=== PATIENT | female | born 1960 | race Caucasian/White ===

== ENCOUNTER 2024-11-07 09:57 | Emergency (ER) | payer MEDICARE, MEDICAID, SELFPAY ==
--- NOTE | ~2024-11-07 | CT_ITS ---
EXAMINATION: CT abdomen pelvis w con DATE: 11/07/2024 13:03 INDICATION: Lower abdominal pain and rectal bleeding TECHNIQUE: Computed tomography (CT) of the abdomen and pelvis was performed with 100 mL Omnipaque-350 intravenous contrast. Automated exposure control and iterative reconstruction technique were employed. The dose-length product was 242.18 mGy-cm. COMPARISON: None FINDINGS: Lung bases are clear. Heart size is normal. No pericardial or pleural effusion. Small sliding-type hiatal hernia. There are 5 hypodense/hypoenhancing hepatic masses measuring 4.6 cm, 3.9 cm, 3.2 cm, 1.7 cm and 6 mm in maximal diameters. Gallbladder, spleen, pancreas, bilateral adrenal glands and right kidney are normal. 2.2 cm left renal cyst. Bladder, anteverted uterus and bilateral adnexa are unremarkable. Moderate diverticulosis along the proximal sigmoid colon without adjacent from trace stranding to suggest diverticulitis. There is wall thickening in the more distal sigmoid colon. There is mild stranding in the presacral fat along with a few mildly enlarged perirectal lymph nodes, the largest measuring 1.8 x 1.3 cm. No other pathologically enlarged abdominal or pelvic lymphadenopathy. No free intraperitoneal gas or fluid. Severe lumbar spondylosis. IMPRESSION: 1. Wall thickening the distal sigmoid colon with a few prominent perirectal lymph nodes which could be due to colitis and infectious or inflammatory in etiology with associated reactive lymphadenopathy or colon cancer with local metastatic disease. Consider colonoscopy for further evaluation when clinically appropriate 2. Several hypodense hepatic masses, the largest measuring up to 4.6 cm which could represent metastatic disease, hemangiomas, focal hepatic steatosis or other benign or malignant neoplasm. Recommend further evaluation with multiphase pre and postcontrast MRI or CT. Reviewed, dictated and finalized at location A. IMPRESSION: 1. Wall thickening the distal sigmoid colon with a few prominent perirectal lym ph nodes which could be due to colitis and infectious or inflammatory in etiolo gy with associated reactive lymphadenopathy or colon cancer with local metastat ic disease. Consider colonoscopy for further evaluation when clinically appropr iate 2. Several hypodense hepatic masses, the largest measuring up to 4.6 cm which c ould represent metastatic disease, hemangiomas, focal hepatic steatosis or othe r benign or malignant neoplasm. Recommend further evaluation with multiphase pr e and postcontrast MRI or CT.
--- OUTSIDE RECORDS SUMMARY | 2024-11-07 09:59 | XMS_ITS | Clinical Summary ---
Author Organization [facility] Facility Address [address] [facility] [address] [place] [address] Care Team Providers Care Bank President Name Role Phone Caleb Forman Primary Care Provider [phone] Encounters Date Type Department Care Team Description 10/08/2024 Documentation Only [employer] [facility] [address] Provider, MD [place] from Last 3 Months Social History Tobacco Use Types Packs/Day Years Used Date Smoking Tobacco: Never Assessed Comments Unknown Sex and Gender Information Value Date Recorded Sex Assigned at Not on file Legal Sex Female 1:04 PM EDT Gender Identity Not on file Sexual Orientation Not on file Plan of Treatment Upcoming Encounters Date Type Department Care Team (Late st Contact Info) Description 12/12/2024 11:30 AM CDT Office Visit [employer] [facility] [address] [facility] [address] [place] [phone] Christ Molina MD [address] [place] [address] [address] [place] [address] Health Maintenance Due Date Last Done Comments Breast Cancer Screening 1959 Colorectal Cancer Screening: Annual FOBT 2008 Colorectal Cancer Screening: Colonoscopy 2008 Colorectal Cancer Screening: Sigmoidoscopy 2008 Pneumococcal Vaccine: 50+ Ye ars (1 of 1 - PCV) 2009 Influenza Vaccine (#1) 2024 Hepatitis B Vaccine Aged Out No longe r eligible based on patient's age to complete this topic Insurance Medicaid [place] Medicare Medicaid [place] Care Teams Bank President Relationship Specialty Start Date End Date Caleb Forman PA [address] [place] [address] PCP - General Internal Medicine 10/08/24
--- OUTSIDE RECORDS SUMMARY | 2024-11-07 09:59 | XMS_ITS | Clinical Summary ---
Author Organization [facility] Address [address] [place] [address] Phone Care Team Providers Care Customer Counter Representative Name Role Phone Caleb Forman Primary Care Provider [phone] Mack Orellana MD Unavailable Allergies No known active allergies Medications metoclopramide (REGLAN) 10 MG Tablet Take 1 Tab by mouth 4 times daily as needed for Nausea - 1st line or Vomiting. 10 Tab 0 Active Ventolin HFA 108 (90 Base) MCG/ACT Aerosol Solution INHALE 2 PUFFS BY MOUTH 3 TO 4 TIMES DAILY NEEDED 4 Active atenolol (TENORMIN) 50 MG Tablet Take 50 mg by mouth every morning. 3 Active Qvar RediHaler 40 MCG/ACT AEROSOL, BREATH ACTIVATED INHALE 1 PUFF TWICE DAILY 4 Active bisacodyl 5 MG Tablet Delayed Response Take 10 mg by mouth daily as needed. 3 Active cetirizine (ZyrTEC) 10 MG Tablet TAKE 1 TABLET BY MOUTH ONCE DAILY NEEDED 4 Active famotidine (PEPCID) 20 MG Tablet Take 20 mg by mouth 2 times daily. 4 Active fluticasone (FLONASE) 50 MCG/ACT Suspension USE 1 SPRAY(S) IN EACH NOSTRIL ONCE DAILY 4 Active gabapentin (NEURONTIN) 300 MG Capsule Take 300 mg by mouth 3 times daily. 4 Active ipratropium-alb uterol (DUO-NEB) 0.5-2.5 (3) MG/3ML Solution USE 1 VIAL VIA NEBULIZER FOUR TIMES DAILY NEEDED 4 Active lisinopril (PRINIVIL, ZESTRIL) 20 MG Tablet Take 40 mg by mouth every morning. 3 Active meclizine (ANTIVERT) 25 MG Tablet 3 times daily. 4 Active naproxen (NAPROSYN) 500 MG Tablet TAKE 1/2 (ONE-HALF) TABLET BY MOUTH TWICE DAILY WITH FOOD 3 Active simvastatin (ZOCOR) 20 MG Tablet Take 20 mg by mouth daily. 4 Active traMADol (ULTRAM) 50 MG Tablet Take 50 mg by mouth every 8 hours as needed for Mild or more severe pain. Active nitroGLYCERIN (NITROSTAT) 0.4 MG SL Tablet 0.4 mg by Sublingual route every 5 minutes as needed. Active Active Problems No known active problems Family History Medical History Relation Name Comments Hypertension Daughter Cancer Father Stomach Diabetes Father Heart Attack Father Heart Disease Father Hypertension Father No Known Problems Half-Brother 1 No Known Problems Half-Brother 2 No Known Problems Half-Brother 3 No Known Problems Half-Sister 1 No Known Problems Half-Sister 2 No Known Problems Half-Sister 3 No Known Problems Half-Sister 4 No Known Problems Half-Sister 5 No Known Problems Half-Sister 6 No Known Problems Half-Sister 7 Heart Attack Maternal Grandfather Heart Attack Maternal Grandmother No Known Problems Mother No Known Problems Paternal Grandfather No Known Problems Paternal Grandmother Hypertension Son 1 Other-comment Son 2 Stillborn Relation Name Status Comments Daughter Alive Father Half-Brother 1 Alive Half-Brother 2 Alive Half-Brother 3 Alive Half-Sister 1 Alive Half-Sister 2 Alive Half-Sister 3 Alive Half-Sister 4 Alive Half-Sister 5 Alive Half-Sister 6 Alive Half-Sister 7 Alive Maternal Grandfather Maternal Grandmother Mother Paternal Grandfather Paternal Grandmother Son 1 Alive Son 2 Social History Tobacco Use Types Packs/Day Years Used Date Smoking Tobacco: Every Day Cigarettes 0.9 54.7 Started: 1970 Smokeless Tobacco: Never Tobacco Cessation:Ready to Q uit: Not Asked; Counseling Given: Not Answered Comments:10 cigarettes daily now Alcohol Use Standard Drinks/Week Comments Not Currently 6 (1 standard drink = 0.6 oz pure alcohol) quit 2022, used to drink 6 pack a day Sexually Active Control Partners Comments Yes Male Comments No Sex and Gender Information Value Date Recorded Sex Assigned at Not on file Legal Sex Female 7:43 PM CDT Gender Identity Not on file Sexual Orientation Not on file Last Filed Vital Signs Vital Sign Reading Time Taken Comments Blood Pressure 136/84 06/04/2024 9:20 AM CDT Pulse 105 06/04/2024 9:20 AM CDT Temperature 36.1 C (97 F) 06/04/2024 9:20 AM CDT Respiratory Rate 16 06/30/2019 10:32 AM CDT Oxygen Saturation 98% 06/04/2024 9:20 AM CDT Inhaled Oxygen Concentration - - Weight 72.1 kg (159 lb) 06/27/2024 8:35 AM CDT Height 160 cm (5' 3) 06/27/2024 8:35 AM CDT Body Mass Index 28.17 06/27/2024 8:35 AM CDT Plan of Treatment Health Maintenance Due Date Last Done Comments DEXA Bone Density 1959 Hepatitis C Virus (HCV) Screening 1959 Mammogram 1959 TdaP Immunization 1959 Pneumococcal Immunization (5 0+ years) (1 of 2 - PCV) 1978 Pap Smear 1980 Cervical Cancer Screening (CCS) 1989 HPV/Cotest 1989 Cologuard 2004 Colonoscopy 2004 Colorectal Cancer Screening 2004 Immunochemical Fecal Occult Blood 2004 Zoster Immunization (1 of 2) 2009 Lung Cancer Screening 06/14/2016 06/15/2015 Influenza Immunization (#1) 2024 SARS-COV-2 Immunization (2 - 2024- season) 2024 08/21/2020 Respiratory Syncytial Virus (RSV) Immunization (Adult) (1 - 1-dose 75+ series) 2034 Hepatitis B Immunization Aged Out No longer eligible based on patient's age to complete this topic Human Papillomavirus (HPV) Immunization Aged Out No longer eligible b ased on patient's age to complete this topic Meningococcal Immunization (ACWY) Aged Out No longer eligible based on patient's age to complete this topic Rotavirus Immunization Aged Out No lo nger eligible based on patient's age to complete this topic Procedures Procedure Name Priority Date/Time Associated Diagnosis Comments CT CHEST W/O CONTRAST Routine 06/15/2015 2:59 PM CDT Mixed simple and mucopurulent chronic bronchitis from Last 3 Months or Most Recently Relevant to Health Maintenance Results * CT CHEST W/O CONTRAST (06/15/2015 2:59 PM CDT) Anatomical Region Laterality Modality Chest N/A Computed Tomogra phy 06/15/2015 9:38 PM CDT Impressions 06/15/2015 9:41 PM CDT IMPRESSION: 1. No evidence of a consolidation to suggest pneumonia. 2. No evidence of a mass underlying the marker positioned over the patient's inferior neck at the level of the thyroid gland. Automated exposure control was used as a dose optimization technique for this examination. Narrative 06/15/2015 9:41 PM CDT EXAMINATION: CT CHEST WITHOUT IV CONTRAST DATE: 06/15/2015 COMPARISON: None HISTORY: Bronchitis, COPD, note on my throat. Symptoms for 1 week. Mixed simple and mucopurulent chronic bronchitis. History of COPD. TECHNIQUE: CT of the chest was performed without IV contrast. FINDINGS: Heart size is within normal limits. Proximal aspects of the great vessels are within normal limits in size. Moderate atherosclerotic calcification of the aortic arch is noted. Thyroid gland is unremarkable. No gross hilar, mediastinal, axillary, supraclavicular, internal mammary, pericardiophrenic or retrocrural lymphadenopathy is present. Images of the upper abdomen appear unremarkable. The trachea, esophagus, main stem bronchi appear unremarkable. There are a few scattered calcified granulomata within the lungs. No consolidation is seen to suggest pneumonia. There is no evidence of bronchiectasis. Mild - moderate osteoarthritic changes of the spine are noted. Radiopaque marker over the neck is noted above the sternomanubrial junction at the level of the thyroid gland. There is no evidence of underlying mass within the soft tissues. THIS IS AN ELECTRONICALLY VERIFIED REPORT 06/15/2015 9:38 PM: Brissa Melchor M.D. Radiologist AT:at [facility] Procedure Note Jet Dowd MD - 06/15/2015 EXAMINATION: CT CHEST WITHOUT IV CONTRAST DATE: 06/15/2015 COMPARISON: None HISTORY: Bronchitis, COPD, note on my throat. Symptoms for 1 week. Mixed simple and mucopurulent chronic bronchitis. History of COPD. TECHNIQUE: CT of the chest was performed without IV contrast. FINDINGS: Heart size is within normal limits. Proximal aspects of the great vessels are within normal limits in size. Moderate atherosclerotic calcification of the aortic arch is noted. Thyroid gland is unremarkable. No gross hilar, mediastinal, axillary, supraclavicular, internal mammary, pericardiophrenic or retrocrural lymphadenopathy is present. Images of the upper abdomen appear unremarkable. The trachea, esophagus, main stem bronchi appear unremarkable. There are a few scattered calcified granulomata within the lungs. No consolidation is seen to suggest pneumonia. There is no evidence of bronchiectasis. Mild - moderate osteoarthritic changes of the spine are noted. Radiopaque marker over the neck is noted above the sternomanubrial junction at the level of the thyroid gland. There is no evidence of underlying mass within the soft tissues. THIS IS AN ELECTRONICALLY VERIFIED REPORT 06/15/2015 9:38 PM: Brissa Melchor M.D. Radiologist AT:[facility] IMPRESSION: 1. No evidence of a consolidation to suggest pneumonia. 2. No evidence of a mass underlying the marker positioned over the patient's inferior neck at the level of the thyroid gland. Automated exposure control was used as a dose optimization technique for this examination. Caleb Forman [facility] CT ORDERABLES Final Resul t from Last 3 Months or Most Recently Relevant to Health Maintenance Insurance MEDICARE [place]ICAID [place] Care Teams Customer Counter Representative Relationship Specialty Start Date End Date Caleb Forman, [facility] [address] [place] [id number] PCP - General Physician Associate Professor Of Library Science 06/14/15 Mack Orellana MD [address] [address] Consulting Physician Colon and Rectal Surgery 04/09/23
[2024-11-07 11:43] VITALS: BP 98/60; PULSE 83; RESP 14; TEMP 36.8; O2SAT 100
[2024-11-07 12:04] LABS: Hematocrit 38.6 % (37.0-47.0); Hemoglobin 12.1 g/dL (12.0-15.0); Immature Granulocyte Percent A 0.7 % (0-0.5); Lymphocytes Absolute Auto 2.77 K/mm3 (0.9-3.2); Mean Corpuscular HGB Conc 31.3 g/dl (32-36); Mean Corpuscular Hemoglobin 28.4 pg (26-34); Mean Corpuscular Volume 90.6 fl (80-100); Nucleated Red Blood Cells Absolute Auto 0.000 K/mm3 (0.0-0.012); Nucleated Red Blood Cells Perc 0.0 % (0.0-0.2); Platelet Count Result 488 k/mm3 (150-375); Red Blood Count 4.26 M/mm3 (4.2-5.4); White Blood Count 15.1 K/mm3 (4.5-10.0)
[2024-11-07 12:05] VITALS: BP 107/70; PULSE 82; RESP 14; O2SAT 99
[2024-11-07 12:16] LABS: INR 1.0; Prothrombin Time 13.3 Seconds (11.1-14.7)
[2024-11-07 12:17] LABS: Partial Thromboplastin Time 25.2 Seconds (22.3-36.8)
[2024-11-07 12:28] LABS: Alanine Aminotransferase 14 U/L (6-35); Albumin Level 3.6 g/dL (3.5-5.1); Alkaline Phosphatase 90 U/L (38-126); Anion Gap 7 mmol/L (4-12); Aspartate Amino Transferase 29 U/L (14-36); Bilirubin,Total 0.5 mg/dL (0.2-1.3); Blood Urea Nitrogen 18 mg/dL (7-17); Calcium 9.0 mg/dL (8.4-10.2); Carbon Dioxide 24 mmol/L (22-30); Chloride 100 mmol/L (98-107); Estimated CRCL calculation 37 ml/min; Estimated Glomerular Filt Rate 49; Glucose 107 mg/dL (65-110); Potassium 4.5 mmol/L (3.4-5.0); Sodium 131 mmol/L (137-145); Total Protein 6.7 g/dL (6.3-8.2)
[2024-11-07] MEDS: LACTATED RINGERS 1,000 ML 999 ML IV CONT (12:35)
--- OUTSIDE RECORDS SUMMARY | 2024-11-07 12:42 | XMS_ITS | Clinical Summary ---
Author Organization [facility] Address [address] [place] [address] Phone Care Team Providers Care Tank Builder Name Role Phone Caleb Forman Primary Care Provider [phone] Mack Orellana MD Unavailable Allergies No known [...] optimization technique for this examination. Caleb Forman [facility] CT ORDERABLES Final Resul t from Last 3 Months or Most Recently Relevant to Health Maintenance Insurance MEDICARE [place]ID [place] Care Teams Tank Builder Relationship Specialty Start Date End Date Caleb Forman, [facility] [address] [place] [address] PCP - General Physician Dining Room Busser 06/14/15 Mack Orellana MD [address] [address] Consulting Physician Colon and Rectal Surgery 04/09/23
--- OUTSIDE RECORDS SUMMARY | 2024-11-07 12:42 | XMS_ITS | Clinical Summary ---
Author Organization [facility] Facility Address [address] [facility] [address] [place] [address] Care Team Providers Care Salvage Inspector Name Role Phone Caleb Forman Primary Care Provider [phone] Encounters Date Type Department Care Team Description 10/08/2024 Documentation Only [place] [employer] [facility] [address] Provider, MD [place] from Last [...] Description 12/12/2024 11:30 AM CDT Office Visit [place] [employer] [facility] [address] [facility] [address] [place] [phone] Christ Molina MD [address] [place] [address] [address] [place] [address] Health Maintenance Due Date Last Done Comments [...] Medicaid [place] Medicare Medicaid [place] Care Teams Salvage Inspector Relationship Specialty Start Date End Date Caleb Forman PA [address] [place] [address] PCP - General Internal Medicine 10/08/24
--- NOTE | 2024-11-07 12:52 | ED.GENADULT ---
HPI - General Adult General Chief complaint: GI Bleed Stated complaint: rectal bleeding, dizziness, abdominal pain Time Seen by Provider: 11/07/24 12:20 History of Present Illness HPI narrative: 64-year-old female present to the emergency department for evaluation for complaint bright red blood per rectum for the last 7 months. Patient states she did have a recent hospitalization at [facility] but has no information regarding the workup or discharge summary. Patient states he did have follow-up with her primary care physician but is also unable to provide any information gained from the at doctor's appointment. Patient denies any abdominal pain but is complaining of persistent bright red blood per rectum. Patient is not on any blood thinners. Patient does have history of her hernia Related Data Allergies Allergy/AdvReac Type Severity Reaction Status Date / Time No Known Allergies Allergy Verified 11/07/24 09:58 Review of Systems Review of Systems: All systems reviewed & are unremarkable except as noted in HPI and below Exam Narrative: APPEARANCE: Well appearing, no pain, no distress, well-nourished. HEAD: normocephalic, atraumatic. EYES: PERRLA/EOMI, conjunctivae clear. NOSE: Normal no drainage EARS:TMS clear with good light reflex. THROAT: Pharynx clear, no exudate. NECK: Supple. No adenopathy, no masses. RESPIRATORY: Airway patent, respirations nonlabored. Clear to auscultation bilaterally, no rales, rhonchi, wheezing. CARDIOVASCULAR: Regular rate and rhythm without murmurs rubs or gallops. ABDOMINAL: Soft, nontender, nondistended, normal bowel sounds MUSCULOSKELETAL: Moves all extremities. Strength/ROM intact, No edema, No calf tenderness. NEURO: Alert. Cranial nerves II through XII intact. Good gait. Good coordination SKIN: Warm, dry. Normal Color Rectal exam: Hemoccult positive brown stool Course Vital Signs Vital signs: Vital Signs Temperature 98.3 F 11/07/24 11:43 Pulse Rate 83 11/07/24 11:43 Respiratory Rate 14 11/07/24 11:43 Blood Pressure 98/60 L 11/07/24 11:43 Pulse Oximetry 100 11/07/24 11:43 Oxygen Delivery Room Air 11/07/24 11:43 Temperature 98.3 F 11/07/24 11:43 Pulse Rate 82 11/07/24 13:56 Respiratory Rate 20 11/07/24 13:56 Blood Pressure 120/75 11/07/24 13:56 Pulse Oximetry 99 11/07/24 13:56 Oxygen Delivery Room Air 11/07/24 11:43 Medical Decision Making [facility] Narrative Medical decision making narrative: 64-year-old female presents emergency department for evaluation for bright red blood per rectum. Patient is afebrile but does have a leukocytosis of 15.1 hemoglobin of 12.1, patient's platelets are 488, INR is 1.0. No significant acute abnormalities on her CMP. Patient was Hemoccult positive on her rectal exam. Patient had brown stool that tests Hemoccult positive, no bright red blood per rectum and no melena stool. Patient was treated with 1 L of lactated Ringer's. CT scan showed evidence of colitis. Patient will be started on Augmentin and encouraged of close follow-up with GI. Patient was also encouraged to follow up with her primary care physician for additional imaging of CT findings regarding the liver. Patient was informed that the findings on her CT scan may be secondary to cancer. Patient was strongly encouraged to get lost to follow-up and have close follow-up with her primary care physician for additional testing. Patient family were comfortable with the plan for discharge and close follow-up. All questions concerns were addressed. Differential Diagnosis Differential Diagnosis: Colitis, colon cancer, liver cancer, metastatic cancer, diverticulitis, Vital Signs Vital Signs: Vital Signs Temperature 98.3 F 11/07/24 11:43 Pulse Rate 83 11/07/24 11:43 Respiratory Rate 14 11/07/24 11:43 Blood Pressure 98/60 L 11/07/24 11:43 Pulse Oximetry 100 11/07/24 11:43 Oxygen Delivery Room Air 11/07/24 11:43 Temperature 98.3 F 11/07/24 11:43 Pulse Rate 82 11/07/24 13:56 Respiratory Rate 20 11/07/24 13:56 Blood Pressure 120/75 11/07/24 13:56 Pulse Oximetry 99 11/07/24 13:56 Oxygen Delivery Room Air 11/07/24 11:43 Lab Data Lab results reviewed: Yes I reviewed the patient's lab results. 11/07/24 11:54 11/07/24 11:54 Labs: Lab Results 11/07/24 Range/Units 11:54 WBC 15.1 H (4.5-10.0) K/mm3 RBC 4.26 (4.2-5.4) M/mm3 Hgb 12.1 (12.0-15.0) g/dL Hct 38.6 (37.0-47.0) % MCV 90.6 (80-100) fl MCH 28.4 (26-34) pg MCHC 31.3 L (32-36) g/dl RDW 16.3 H (11.5-14.5) % Plt Count 488 H (150-375) k/mm3 MPV 8.5 (7.4-10.4) fl Immature Gran % (Auto) 0.7 H (0-0.5) % Neut % (Auto) 69.4 (45.5-73.1) % Lymph % (Auto) 18.3 (18.3-44.2) % [place] % (Auto) 10.0 H (2.6-8.5) % Eos % (Auto) 1.1 (0-4.4) % Baso % (Auto) 0.5 (0.2-1.2) % Lymph # (Auto) 2.77 (0.9-3.2) K/mm3 [place] # (Auto) 1.5 H (0.1-0.6) K/mm3 Eos # (Auto) 0.2 (0-0.3) K/mm3 Baso # (Auto) 0.1 (0.0-0.1) K/mm3 Abs Immat Gran (auto) 0.10 H (0.00-0.031) K/mm3 Absolute Neuts (auto) 10.5 H (1.3-6.7) K/mm3 Absolute Nucleated RBC 0.000 (0.0-0.012) K/mm3 Nucleated RBC % 0.0 (0.0-0.2) % PT 13.3 (11.1-14.7) Seconds INR 1.0 APTT 25.2 (22.3-36.8) Seconds Sodium 131 L (137-145) mmol/L Potassium 4.5 (3.4-5.0) mmol/L Chloride 100 (98-107) mmol/L Carbon Dioxide 24 (22-30) mmol/L Anion Gap 7 (4-12) mmol/L BUN 18 H (7-17) mg/dL Creatinine 1.12 H (0.7-1.0) mg/dL Estim Creat Clear Calc 37 ml/min Estimated GFR 49 L (59 - ) Glucose 107 (65-110) mg/dL Calcium 9.0 (8.4-10.2) mg/dL Total Bilirubin 0.5 (0.2-1.3) mg/dL AST 29 (14-36) U/L ALT 14 (6-35) U/L Alkaline Phosphatase 90 (38-126) U/L Total Protein 6.7 (6.3-8.2) g/dL Albumin 3.6 (3.5-5.1) g/dL Blood Type A Negative Antibody Screen Negative Imaging Data Radiologist's impression: Impressions Abdomen/Pelvis CT 11/07/24 13:06 IMPRESSION: 1. Wall thickening the distal sigmoid colon with a few prominent perirectal lymph nodes which could be due to colitis and infectious or inflammatory in etiology with associated reactive lymphadenopathy or colon cancer with local metastatic disease. Consider colonoscopy for further evaluation when clinically appropriate 2. Several hypodense hepatic masses, the largest measuring up to 4.6 cm which could represent metastatic disease, hemangiomas, focal hepatic steatosis or other benign or malignant neoplasm. Recommend further evaluation with multiphase pre and postcontrast MRI or CT. Discharge Plan Discharge Clinical Impression: Colitis Patient Disposition: Home Condition: Stable Instructions: Antibiotic Form, Colitis (ED) Additional Instructions: Clear liquid diet for the next 1-3 days. Antibiotic as directed until completed. Have close follow-up with GI to have a colonoscopy. Have close follow-up with your primary care physician for additional liver studies to evaluate liver masses. Patient Language: Mexican Prescriptions: New ondansetron 4 mg tablet,disintegrating 4 mg PO Q8H PRN (Reason: nausea and vomiting) Qty: 14 0RF amoxicillin-pot clavulanate 875-125 mg tablet 1 tablet PO Q12H 7 Days Qty: 14 0RF Follow-up/Referrals: Dasia,ISHAAN Yanes [Primary Care Provider] Stone Galo MD [Physician, Gastroenterology]
--- NOTE | 2024-11-07 12:59 | PC.NURSE ---
Medical records request faxed to [facility] records [phone]
[2024-11-07 13:56] VITALS: BP 120/75; PULSE 82; RESP 20; O2SAT 99
== END 2024-11-07 14:06 | disposition home or self-care (01) ==
PROVIDERS: Emergency Provider Emergency Medicine; PCP Physician Assistant
DX: K52.9 Noninfective gastroenteritis and colitis, unspecified (principal); R16.0 Hepatomegaly, not elsewhere classified
CPT/HCPCS: 36415; 74177; 80053; 85025; 85610; 85730; 86850; 86900; 86901; 96360; 99284; A9270; J7120; Q9967

== ENCOUNTER 2024-11-19 02:59 | Day surgery (SDC) | payer MEDICARE, MEDICAID, SELFPAY ==
[2024-11-18 09:06] VITALS: BMI 22.5
[2024-11-19 12:12] VITALS: BP 103/63; PULSE 92; RESP 18; TEMP 36.2; O2SAT 100; BMI 22.3
[2024-11-19] MEDS: LACTATED RINGERS 1,000 ML 150 ML IV CONT (12:16)
--- NOTE | 2024-11-19 12:51 | WPDANESEPPF ---
Anes - Initial Pre Proc Eval Procedure: Operation Date: 11/19/24 13:30 Proposed Procedures p EGD & Diagnostic Colonoscopy - Stone Galo MD Date/Time: 11/19/24 12:51 Surgeon: Stone Galo MD Pre Op Diagnosis: Nausea/vomiting,abdnormal wt loss,rectal bleeding Patient Data Age: 64 Gender: F Height: 1.6 m Weight: 57.2 kg Last Vital Signs Temp 36.2 C L 11/19/24 12:12 Pulse 92 11/19/24 12:12 Resp 18 11/19/24 12:12 BP 103/63 11/19/24 12:12 Pulse Ox 100 11/19/24 12:12 O2 Del Method Room Air 11/19/24 12:12 Allergies Allergy/AdvReac Type Severity Reaction Status Date / Time No Known Allergies Allergy Verified 11/19/24 12:09 Home Medications ?Medication ?Instructions ?Recorded ?Confirmed ?Type ondansetron 4 mg disintegrating 4 mg PO Q8H PRN nausea and 11/07/24 11/18/24 Rx tablet vomiting #14 tabs albuterol sulfate 90 mcg/actuation 1 inh inhalation Q4-6H PRN 11/12/24 11/18/24 History breath activated powder inhaler shortness of breath or wheezing famotidine 20 mg tablet 20 mg PO DAILY 11/12/24 11/19/24 History fluticasone propionate 50 1 spray intranasal DAILY 11/12/24 11/19/24 History mcg/actuation nasal spray,suspension lisinopril 40 mg tablet 40 mg PO DAILY 11/12/24 11/19/24 History meclizine 25 mg tablet 25 mg PO TID 11/12/24 11/19/24 History nitroglycerin 0.4 mg sublingual 0.4 mg sublingual Q5M PRN chest 11/12/24 11/18/24 History tablet pain simvastatin 5 mg tablet 5 mg PO DAILY 11/12/24 11/18/24 History tramadol 50 mg tablet 50 mg PO Q6H PRN pain 11/12/24 11/18/24 History atenolol 50 mg tablet 50 mg PO DAILY 11/18/24 11/19/24 History Patient hx anesthesia problems: none Family hx anesthesia problems: none Results Review: All pre-operative results and documents have been reviewed as part of the pre-operative evaluation. [facility] Past Medical History Medical History Smoker Abnormal CT scan, colon Nausea and vomiting in adult Weight loss Rectal bleeding COPD (chronic obstructive pulmonary disease) Asthma Family History Family History Father Asthma Diabetes mellitus Hypertension Heart disease Cerebrovascular accident Social History Social History Smoking packs per day: 0.5 Smoking cigarettes per day: 10.0 Years smoked: 30 Smoking pack-years: 15.00 Smoking status: Current every day smoker Tobacco type: cigarettes Alcohol intake: never Substance use: current Substance use type: marijuana Last use: 2 days ago Living arrangements: with family Spiritual care concerns: No Anes - Eval Final PreProcedure Day of Procedure 11/19/24 12:51 Patient weight: normal Heart: regular rate and rhythm Lungs: clear to auscultation Airway: Mallampati scale class II Neurological: alert and oriented Last oral intake: >/= 8 hours ASA classification: III Emergent: no Anesthetic plan: proceed Anesthesia type and monitoring: general GIVS and standard monitoring Results Review: All pre-operative results and documents have been reviewed as part of the pre-operative evaluation. Informed Consent: The patient's anesthetic plan and its attendant risks and benefits were discussed with the patient/family/POA. Questions were solicited and answers provided to the satisfaction of the patient/family/POA.
--- NOTE | 2024-11-19 13:00 | WPDHPUPDATE1 ---
History and Physical Update Update Date/Time: 11/19/24 13:00 History and Physical has been reviewed, including an updated exam of the patient. There are NO changes in the patient's condition. Risks, benefits, and alternatives have been discussed and questions answered. Patient agrees to proceed with procedure.
--- NOTE | 2024-11-19 13:09 | S_PTH ---
PATIENT: Vianca West LOC: GISELLA Aguilera#:[id number] AGE/SX: 64/F ROOM: RE11/19/[address]: Stone Galo MD : 1960 BED: DIS: 11/19/2024 SPEC #: [id number] RECD: 11/19/24 14:03 STATUS: BRENDA ALVAREZ #: [id number] CATHERINE: 11/19/24 13:[address]: Stone Galo DEPT: [facility] Surgical RECD BY: Hanh Griffith ENTERED: 11/19/24 14:03 SP TYPE: Surgical OTHR DR: Caleb Forman, PA Tissues: A - Small Bowel Bx B - Gastric Biopsy C - Colon Polypectomy D - Colon Biopsy Procedures: Hematoxylin and Eosin Stain Gross and Microscopic Level 4 MLH1 MSH2 MSH6 PMS2
--- NOTE | 2024-11-19 13:14 | SUR.OPER ---
EGD: ended 1309 COLON: started 1313
[2024-11-19 13:32] VITALS: BP 104/45; PULSE 86; RESP 17; O2SAT 100
[2024-11-19 13:42] VITALS: BP 126/58; PULSE 87; RESP 17; O2SAT 99
[2024-11-19 13:52] VITALS: BP 129/55; PULSE 81; RESP 16; O2SAT 100
--- NOTE | 2024-11-19 14:18 | SUR.PHASEII ---
Patient requested script for something for pain. Currently taking Gabapentin and Tramadol at home, prescribed by her PCP. Spoke with Dr. De La Rosa and he agreed to order her Bentyl. Script to be sent to [facility]. Patient verbalized understanding.
== END 2024-11-19 14:06 | disposition home or self-care (01) ==
PROVIDERS: PCP Physician Assistant; Referring Provider Internal Medicine Gastroenterology; Visit Provider Internal Medicine Gastroenterology
PROC: 0DJ08ZZ Inspection of Upper Intestinal Tract, Via Natural or Artificial Opening Endoscopic (ICD-10-PCS; CPT 45378; principal; 2024-11-19 13:30)
DX: R93.3 Abnormal findings on diagnostic imaging of other parts of digestive tract (principal); C18.7 Malignant neoplasm of sigmoid colon; D12.2 Benign neoplasm of ascending colon; K57.30 Diverticulosis of large intestine without perforation or abscess without bleeding; K44.9 Diaphragmatic hernia without obstruction or gangrene; J44.9 Chronic obstructive pulmonary disease, unspecified; F17.210 Nicotine dependence, cigarettes, uncomplicated; F12.90 Cannabis use, unspecified, uncomplicated; Z79.51 Long term (current) use of inhaled steroids; Z79.891 Long term (current) use of opiate analgesic; Z82.49 Family history of ischemic heart disease and other diseases of the circulatory system
CPT/HCPCS: 43239; 45380; 45385; 88305; 88342; J2003; J2704; J7120

== ENCOUNTER 2024-11-28 12:08 | Outpatient (CLI) | payer MEDICARE, MEDICAID, SELFPAY ==
[2024-11-28 12:29] LABS: Hematocrit 38.9 % (37.0-47.0); Hemoglobin 11.7 g/dL (12.0-15.0); Immature Granulocyte Percent A 0.3 % (0-0.5); Lymphocytes Absolute Auto 2.18 K/mm3 (0.9-3.2); Mean Corpuscular HGB Conc 30.1 g/dl (32-36); Mean Corpuscular Hemoglobin 28.7 pg (26-34); Mean Corpuscular Volume 95.3 fl (80-100); Nucleated Red Blood Cells Absolute Auto 0.000 K/mm3 (0.0-0.012); Nucleated Red Blood Cells Perc 0.0 % (0.0-0.2); Platelet Count Result 368 k/mm3 (150-375); Red Blood Count 4.08 M/mm3 (4.2-5.4); White Blood Count 8.0 K/mm3 (4.5-10.0)
[2024-11-28 14:18] LABS: Alanine Aminotransferase 16 U/L (6-35); Albumin Level 4.0 g/dL (3.5-5.1); Alkaline Phosphatase 100 U/L (38-126); Anion Gap 6 mmol/L (4-12); Aspartate Amino Transferase 45 U/L (14-36); Bilirubin,Total 0.4 mg/dL (0.2-1.3); Blood Urea Nitrogen 13 mg/dL (7-17); Calcium 9.7 mg/dL (8.4-10.2); Carbon Dioxide 27 mmol/L (22-30); Chloride 101 mmol/L (98-107); Estimated Glomerular Filt Rate > 60; Glucose 101 mg/dL (65-110); Potassium 5.0 mmol/L (3.4-5.0); Sodium 134 mmol/L (137-145); Total Protein 7.3 g/dL (6.3-8.2)
[2024-11-28 14:54] LABS: Carcinoembryonic Antigen 36.6 ng/mL (0.0-3.0)
== END 2024-11-28 12:09 | disposition home or self-care (01) ==
LOC: ANHLAB 12:10
PROVIDERS: PCP Physician Assistant; Visit Provider Internal Medicine Hematology & Oncology
DX: C18.7 Malignant neoplasm of sigmoid colon (principal)
CPT/HCPCS: 36415; 80053; 82378; 85025

== ENCOUNTER 2024-12-09 10:38 | Outpatient (CLI) | payer MEDICARE, MEDICAID, SELFPAY ==
--- NOTE | ~2024-12-09 | PE_ITS ---
EXAMINATION: PET skull to mid thigh DATE: 12/09/2024 12:36 INDICATION: Liver lesion. TECHNIQUE: Blood glucose level was 120 mg/dL. 9.870 mCi of 18-fluorodeoxyglucose (18-FDG) was administered i.v. Low dose computed tomography (CT) images were acquired from the base of the brain to the proximal thighs for attenuation correction and anatomic localization. Automated exposure control was employed. Dose-length product (DLP) was 555 mGy-cm. Positron emission tomography (PET) images were acquired in the same distribution. COMPARISON: CT abdomen and pelvis 11/07/2024 FINDINGS: Head/neck: There are no pathologically enlarged lymph nodes. Chest: There is mild scarring at the lung apices. Calcified pulmonary nodules are consistent with old granulomatous disease. No pleural effusion. The heart size is normal. There are coronary artery calcifications. No pericardial effusion. There is a small sliding hiatal hernia. Abdomen/pelvis/proximal thighs: There are 4 masses in the liver measuring up to 5.2 cm with increased activity, consistent with metastatic disease. The gallbladder, spleen, pancreas, adrenal glands, and kidneys are normal. There is wall thickening of the rectosigmoid with increased activity, consider primary malignancy. There are perirectal lymph nodes measuring up to 15 x 12 mm with increased activity, consistent with metastatic disease. There is diverticulosis of the colon without evidence of diverticulitis. The appendix is normal. There is no ascites. There is no osseous malignancy. IMPRESSION: 1. Wall thickening of the rectosigmoid with increased activity, consistent with primary malignancy. 2. Perirectal lymphadenopathy and liver masses with increased activity, consistent with metastatic disease. Reviewed, dictated and finalized at location E. IMPRESSION: 1. Wall thickening of the rectosigmoid with increased activity, consistent with primary malignancy. 2. Perirectal lymphadenopathy and liver masses with increased activity, consist ent with metastatic disease.
== END 2024-12-09 10:39 | disposition home or self-care (01) ==
PROVIDERS: PCP Physician Assistant; Visit Provider Internal Medicine Hematology & Oncology
DX: C18.7 Malignant neoplasm of sigmoid colon (principal); K76.9 Liver disease, unspecified; K63.89 Other specified diseases of intestine; R59.0 Localized enlarged lymph nodes; R16.0 Hepatomegaly, not elsewhere classified
CPT/HCPCS: 78815; A9552

== ENCOUNTER 2024-12-15 01:01 | Day surgery (SDC) | payer MEDICARE, MEDICAID, SELFPAY ==
[2024-12-10 09:22] VITALS: BMI 22.6
--- NOTE | 2024-12-10 09:36 | PC.NURSE ---
[facility] has started construction of its new state of the art ER which will open Spring 2026. With this, we anticipate parking may be a challenge for some our surgical patients and families. Parking spaces are limited but are available for all Surgical, obstetrics, and ER patients sharing this lot. If you arrive and find you are having a hard time finding a parking space, please note that we understand the challenges, please drive around the hospital and park near Hospital Entrance 1. When you enter this entrance, you can ask a volunteer to direct or take you back to the surgical waiting area to check in. We appreciate everyone?s understanding of these expected challenges while we build for your future. Report to the Outpatient Waiting Room, entrance under the green pavilion located off [address], at time __1200pm on date __12/15/24 . Planned Procedure Time: _200pm .? Time changes happen often and if your time is changed the preop area will call you the afternoon before. - You and your visitor will be asked to self-screen and do not enter if you have any COVID symptoms. Please call surgeon if you need to reschedule. - A mask is optional within the hospital at this time. Patients may have clear liquids (water, carbonated beverages, clear teas, apple juice) until 3 hours prior to surgery with a maximum of 20 ounces. - No food from midnight until time of surgery and no smoking, or chewing tobacco (or any form of nicotine). No chewing gum, candy or mints. (1100am) Take only the following medications with a SIP of water on the morning of surgery: ____ Atenolol, Ellipta inhaler, Gabapentin, Tramadol if needed DO NOT STOP ANY OF YOUR OTHER PRESCRIPTION MEDICATIONS PRIOR TO SURGERY EXCEPT THE FOLLOWING Hold all vitamins and supplements for 3 days per anesthesiologist. Medications to discontinue per physician NONE Date to take last dose NONE Please no make-up, nail slovenian, hairspray, perfume, deodorant, or body powder the day of surgery.? No jewelry (including any body piercings) or valuables the day of surgery, leave them at home.? Please take a shower or bath the night before, or the morning of, surgery with an antibacterial soap.? Wear comfortable, loose fitting clothing.? - Jewelry must be removed prior to entering the operating room.? Rings and piercings that are not removed may be cut off. - The hospital will not accept responsibility for valuables.? - Please leave all valuables, including medications, at home the day of surgery. If you are going home after surgery, a licensed driver/guide must drive you home.? - NO public transportation without another adult if you receive anesthesia. - We recommend that an adult stay with you for 24 hours following discharge. - We also recommend that you do not drive, make important decision, drink alcoholic beverages, or take any drugs that were not prescribed by your health care provider for at least 24 hours after your discharge time. Follow any additional instructions given to you from your surgeon. Telephone instructions given to Patient and asked if any additional questions and then verbalized understanding. Patient advised to call surgeon office or pre surgery nurse liaison [phone] if any additional questions.
--- NOTE | ~2024-12-15 | XR_ITS ---
EXAMINATION: XR chest port-a-cath/central COMPARISON: No comparisons available. HISTORY: POST INSERTION REE CATH FINDINGS: The lungs are clear, no effusion. No pneumothorax. Heart is normal size. Mediastinal and hilar contours are within normal limits. Bony thorax no acute abnormality. Miscellaneous: Mediport terminates in the SVC. Impression: No pneumothorax Reviewed, dictated and finalized at location P. Impression: No pneumothorax
--- NOTE | ~2024-12-15 | XR_ITS ---
EXAMINATION: XR fl guide central line place DATE: 12/15/2024 15:09 INDICATION: Port catheter insertion TECHNIQUE: Single fluoroscopic image of the central chest was obtained during procedure performed by Dr. Parekh. Radiologist was not present for the imaging or procedure. The amount of fluoroscopy time used during this procedure was 0.4 minutes. Total DAP was 0.596 mGym^2. COMPARISON: None. FINDINGS: Distal tip of a central venous catheter extends from cranial to caudal superior vena cava with distal tip near the superior cavoatrial junction. Additional catheter tubing likely external to the patient projects of the right mid to lower lung. Visualized central lungs appear clear. Heart size is normal. IMPRESSION: 1. Fluoroscopy utilized during central venous catheter placement. See procedure note for further detail. Reviewed, dictated and finalized at location A.
--- OUTSIDE RECORDS SUMMARY | 2024-12-15 01:04 | XMS_ITS | Clinical Summary ---
Author Organization [facility] Address [address] [place] [address] Care Team Providers Care Data Typist Name Role Phone Unavailable Primary Care Provider Unavailabl e Allergies No known active allergies Medications albuterol sulfate HFA 90 mcg/actuation aerosol inhaler INHALE 2 PUFFS BY MOUTH 3 TO 4 TIMES DAILY NEEDED Active ALPRAZolam (XANAX) 0.5 mg tablet Take 1 Tablet by mouth 3 times daily. 5 Active dicyclomine (BENTYL) 20 mg tablet Take 20 mg by mouth. Active lisinopriL (PRINIVIL) 40 mg tablet Take 1 Tablet by mouth daily. Active meclizine (ANTIVERT) 25 mg tablet Take 25 mg by mouth 3 times daily as needed. Active simvastatin (ZOCOR) 20 mg tablet Take 20 mg by mouth daily. Active traMADol (ULTRAM) 50 mg tablet Take 50 mg by mouth every 8 hours. Active Anoro Ellipta 62.5-25 mcg/actuation Disk with Device Take 1 Puff by inhalation daily. 5 Active nitroglycerin (NITROSTAT) 0.4 mg Tablet, Sublingual Place 0.4 mg under tongue. Active famotidine (PEPCID) 20 mg tablet Take 20 mg by mouth 2 times daily. Active Active Problems No known active problems Encounters Date Type Department Care Team Description 12/10/2024 Orders Only [facility] Oncology and Hematology - [place] [address] [facility] [address] [place] [address] Manuel Godinez MD 12/09/2024 External Device Data STL ABSTRACTION Provider, Abstract 12/02/2024 External Device Data STL ABSTRACTION Provider, Abstract 12/02/2024 External Device Data [facility] ABSTRACTION Provider, Abstract 12/02/2024 External Device Data ST[facility] ABSTRACTION Provider, Abstract 12/01/2024 Orders Only [facility] Oncology [place] [address] [place] [address] Manuel Godinez MD 11/29/2024 External Device Data STL ABSTRACTION Provider, Abstract 11/28/2024 11:45 AM CDT Office Visit [facility] Oncology and Hematology [facility] [address] [place] [address] Manuel Godinez MD Liver lesion (Primary Dx); Malignant neoplasm of sigmoid colon (CMS/HCC) from Last 3 Months Family History Medical History Relation Name Comments No Known Problems Child 1 No Known Problems Child 3 Diabetes Father Heart Disease Father Stomach Cancer Father Unknown Half-sibling Relation Name Status Comments Child 1 Alive Child 2 Child 3 Alive Father Half-sibling Unknown Social History Tobacco Use Types Packs/Day Years Used Date Smoking Tobacco: Every Day Cigarettes 1 40 Started: 11/28/1984 Smokeless Tobacco: Never Alcohol Use Standard Drinks/Week Comments Not Currently 0 (1 standard drink = 0.6 oz pur e alcohol) Comments Unknown Sex and Gender Information Value Date Recorded Sex Assigned at Not on file Legal Sex Female 9:54 AM CDT Gender Identity Not on file Sexual Orientation Not on file Last Filed Vital Signs Vital Sign Reading Time Taken Comments Blood Pressure 119/74 11/28/2024 11:31 AM CDT Pulse 68 11/28/2024 11:31 AM CDT Temperature 36.2 C (97.2 F) 11/28/2024 11:31 AM CDT Respiratory Rate 16 11/28/2024 11:31 AM CDT Oxygen Saturation 94% 11/28/2024 11:31 AM CDT Inhaled Oxygen Concentration - - Weight 58.2 kg (128 lb 6.4 oz) 11/28/2024 11:31 AM CDT Height 160 cm (5' 3) 11/28/2024 11:31 AM CDT Body Mass Index 22.75 11/28/2024 11:31 AM CDT Plan of Treatment Upcoming Encounters Date Type Department Care Team (Late st Contact Info) Description 12/16/2024 4:30 PM CDT Telephone Check Up [facility] Oncology and Hematology - [place] [address] [facility] [address] [place] [address] Manuel Godinez MD [address] [facility] [address] [place] [address] Health Maintenance Due Date Last Done Comments DTAP/TDAP/TD VACCINES (1 - Tdap) 1978 PNEUMOCOCCAL VACCINE 50+ YEARS (1 of 2 - PCV) 03/10/18 79 Traditional Medicare (ACO) Annual Wellness Visit 03/10 BREAST CANCER SCREENING 1999 Lung Cancer Screening 2009 RSV VACCINE (60+ or ) (1 - Risk 50-74 years 1-dose series) 2009 ZOSTER VACCINE (1 of 2) 2009 OSTEOPOROSIS SCREENING 2024 INFLUENZA VACCINE (#1) 2024 Procedures Procedure Name Priority Date/Time Associated Diagnosis Comments PET BONE IMG W CT SKL BSE MID THG Routine 12/09/2024 12:40 PM CDT COMPREHENSIVE METABOLIC PANEL Routine 11/28/2024 3:07 PM CDT COMPREHENSIVE METABOLIC PANEL Routine 11/28/2024 3:02 PM CDT from Last 3 Months Results * PET BONE IMG W CT SKB MDTH (12/09/2024 12:40 PM CDT) Anatomical Region Laterality Modality Positron Emissio n Tomography (PET) Manuel Godinez MD PE ORDERABLES Final Result * COMPREHENSIVE METABOLIC PANEL (11/28/2024 3:07 PM CDT) Only the most recent of2 resultswithin the time period is included. Blood Manuel Godinez MD CHEMISTRY ORDERABLES Final Resu lt from Last 3 Months Insurance MEDICARE PART A [place] B [place]ICAID [place]
--- OUTSIDE RECORDS SUMMARY | 2024-12-15 01:04 | XMS_ITS | Clinical Summary ---
Author Organization [facility] Address [address] [address] Care Team Providers Care Sign Wirer Name Role Phone Caleb Forman Primary Care Provider [phone] Medications albuterol HFA (PROVENTIL HFA;VENTOLIN HFA) 108 (90 Base) MCG/ACT inhaler INHALE 2 PUFFS BY MOUTH 3 TO 4 TIMES DAILY NEEDED 4 Active ALPRAZolam (XANAX) 0.5 MG tablet Take 0.5 mg by mouth 3 (three) times a day if needed 5 Active dicyclomine (BENTYL) 20 MG tablet TAKE 1 TABLET BY MOUTH THREE TIMES DAILY NEEDED FOR ABDOMINAL PAIN 5 Active famotidine (PEPCID) 20 MG tablet Take 20 mg by mouth in the morning and 20 mg in the evening. 4 Active fluticasone (FLONASE) 50 MCG/ACT nasal spray Administer 1 spray into each nostril 1 (one) time each day 4 Active ipratropium-alb uterol (DUO-NEB) 0.5-2.5 mg/3 mL nebulizer solution USE 1 AMPULE IN NEBULIZER 4 TIMES DAILY NEEDED 4 Active lisinopril 40 MG tablet Take 40 mg by mouth 1 (one) time each day 5 Active meclizine (ANTIVERT) 25 MG tablet Take 25 mg by mouth every 8 hours as needed 4 Active simvastatin (ZOCOR) 20 MG tablet Take 20 mg by mouth in the morning. 4 Active traMADol (ULTRAM) 50 MG tablet Take 50 mg by mouth every 8 (eight) hours Active Anoro Ellipta 62.5-25 MCG/ACT aerosol powder Inhale 1 puff 1 (one) time each day 5 Active Encounters Date Type Department Care Team Description 10/08/2024 Documentation Only [facility] [address] [facility] [address] [place] [address] ProviderMadison MD from Last 3 Months Social History Tobacco Use Types Packs/Day Years Used Date Smoking Tobacco: Never Assessed Comments Unknown Sex and Gender Information Value Date Recorded Sex Assigned at Not on file Legal Sex Female 1:04 PM EDT Gender Identity Not on file Sexual Orientation Not on file Plan of Treatment Upcoming Encounters Date Type Department Care Team (Late st Contact Info) Description 02/27/2025 10:45 AM YARDER ENGINEER Office Visit [facility] [address] [facility] [address] [place] [id number] Christ Molina MD 2 [facility] [address] [place] [address] Health Maintenance Due Date Last Done Comments Breast Cancer Screening 1960 Pneumococcal Vaccine: 50+ Years (1 of 2 - PCV) 979 Colorectal Cancer Screening: Annual FOBT 2008 Colorectal Cancer Screening: Colonoscopy 2008 Colorectal Cancer Screening: Sigmoidoscopy 2008 Hepatitis B Vaccine (1 of 3 - Risk 3-dose series) 02/20 Influenza Vaccine (#1) 2024 Procedures Procedure Name Priority Date/Time Associated Diagnosis Comments EXT RESULT ENTRY Routine 09/21/2024 EXT RESULT ENTRY Routine 09/18/2024 from Last 3 Months Results * (ABNORMAL) EXT RESULT ENTRY (09/21/2024) Only the most recent of2 resultswithin the time period is included. WBC 6.28 3.3 - 10.0 10*3/ML Hemoglobin 10.1 12.0 - 16.0 Hematocrit 31.8 36.0 - 46.0 Platelets 294 150 - 399 10*3/UL Sodium 137 137 - 147 Potassium 3.7 3.4 - 5.5 Chloride 99.0 99.0 - 108.0 Carbon Dioxide 29 mmol/L BUN 28 4 - 21 mg/dL Creatinine 1.35 0.50 - 1.10 mg/dL Albumin 2.9 3.5 - 5.0 g/dL Calcium 8.5 8.7 - 10.7 mg/dL Phosphorus, Serum 2.1 eGFR Non-Afr British 44 09/21/2024 Historical Provider LAB BLOOD ORDERABLES Nolvia l Result from Last 3 Months Insurance Medicare Medicaid [place] Care Teams Sign Wirer Relationship Specialty Start Date End Date Caleb Forman PA [address] [place] [address] PCP - General Internal Medicine 10/08/24
--- OUTSIDE RECORDS SUMMARY | 2024-12-15 01:04 | XMS_ITS | Encounter Summary ---
Author Organization [facility] [employer] Address [address] [place] [address] Care Team Providers Care Linen Keeper Name Role Phone Unavailable Primary Care Provider Unavailabl e Encounter Details Date Type Department Care Team ([facility] Contact Info) Description 12/10/2024 Orders Only [facility] Oncology and Hematology - [place] [address] [place] [address] [place] [address] [place] [address] [employer] [address] [place] [address] Social History Tobacco Use Types Packs/Day Years [...] on file Sexual Orientation Not on file documented as of this encounter Plan of Treatment Upcoming Encounters Date Type Department Care Team ([facility] Contact Info) Description 12/16/2024 4:30 PM CDT Telephone Check Up [facility] Oncology and Hematology - [place] [address] [place] [address] Manuel Godinez MD [address] [employer] [address] [place] [address] documented as of this encounter Procedures Procedure Name Priority Date/Time Associated Diagnosis Comments PET BONE IMG W CT SKL BSE MID THG Routine 12/09/2024 12:40 PM CDT documented in this encounter Results * PET BONE IMG W CT SKB (12/09/2024 12:40 PM CDT) Anatomical Region Laterality Modality Positron Emissio n Tomography (PET) us Manuel Godinez MD PE ORDERABLES Final Result documented in this encounter Visit Diagnoses Not on filedocumented in this encounter
--- OUTSIDE RECORDS SUMMARY | 2024-12-15 01:04 | XMS_ITS | Data Portability ---
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 Plan of Treatment Reminders Order Date Submit Date Provider Last Modified By Organization Details Last Modified Time Details Appointments ANY 15 2024 10:30A M Ana Rosa Forman PA-C Not available Not available Not available Lab CBC 2024 025 [facility], [address] [place] [address] 2, [place], [address], 11/22/2024 08:25:16 CMP, serum or plasma 2024 025 [facility], [address] [place] [address] [place], [address], 11/22/2024 08:25:15 lipid panel, serum 2024 025 [facility], [address] [place] [address] 2, [place], [address], 11/22/2024 08:25:14 noninvasi ve colorecta l cancer DNA + occult blood screening , QL, stool 2024 025 [facility], [address], [place], [address], 10/08/2024 11:12:41 CMP, serum or plasma 2024 025 [facility], [address] [place] [address] [place], [address], 10/09/2024 11:13:29 urinalysi s, dipstick 2024 libby In-Office Order, Internal Use Only DO Not Attach Compendium DO Not Attach Compendium, Do Not Delete/merge, [id number] 09/02/2024 11:26:59 noninvasi ve colorecta l cancer DNA + occult blood screening , QL, stool 2024 [place] [facility], [address], [address], [place], [address], 10/07/2024 15:45:43 Referral gastroent erologist referral 2024 [facility], [address], [address], [place], [address], 12/05/2024 09:53:24 nephrolog ist [facility]24 [facility], [address], [address], [place], [address], 12/04/2024 09:42:38 Procedures None recorded. Surgeries None recorded. Imaging None recorded. Medication Orders alprazola m 0.5 mg tablet 2024 [facility], [address] [place], [address], 11/21/2024 12:06:10 Senna with Docusate Sodium 8.6 mg-50 mg tablet 2024 025 [facility], [address] [place], [address], 10/08/2024 11:12:37 gabapenti n 600 mg tablet 2024 025 [facility], [address] [place], [address], 09/02/2024 11:32:22 ciproflox acin 500 mg tablet 2024 [facility], [address] [place], [address], 09/18/2024 10:59:16 meloxicam 15 mg tablet 2024 [facility], [address] [place], [address], 09/02/2024 11:32:17 atenolol 50 mg tablet 2024 [facility], [address] [place], [address], 09/18/2024 11:00:25 meclizine 25 mg tablet 2024 [facility], [address] [place] [address], [address], 09/02/2024 11:32:22 lidocaine 5 % topical ointment 2024 [facility], [address] [place] [address], [address], 09/02/2024 11:32:18 tramadol 50 mg tablet 2024 [facility], [address] [place], [address], 03/24/2024 12:12:53 azithromy bobby 500 mg tablet 2024 [facility], [address] [place], [address], 09/02/2024 10:59:54 Medrol (Bossman) 4 mg tablets in a dose pack 2024 [facility], [address] [place] [address], [address], 09/02/2024 11:01:39 Patient TargetsNo targets recorded. Patient Instructions Encounter Date Encounter Id Patient Instructions Last Modified By Organization Details Last Modified Time 03/24/2024 [id number] A healthy lifestyle: care instructions jnanney Not available 03/24/2024 12:08:59 09/02/2024 [id number] A healthy lifestyle: care instructions jnanney Not available 09/02/2024 11:36:43 painful urinatio n (dysuria): care instructions jnanney Not available 09/02/2024 11:26:59 09/18/2024 [id number] A healthy lifestyle: care instructions jnanney Not available 09/18/2024 11:11:30 low blood pressure: care instructions jnanney Not available 09/18/2024 11:11:30 10/08/2024 [id number] acute kidney injury: care instructions jnanney Not available 10/08/2024 11:12:30 11/21/2024 [id number] learning about high blood pressure jnanney Not available 11/21/2024 12:07:46 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 Referral for Ac napaimute kidney injury Referring Physician: Ana Rosa Forman [facility], Encounter Date: 10/08/2024 Bending Roll Hand Referral for Liver mass Referring Physician: Ana Rosa Forman [facility], Encounter Date: 11/21/2024 Results Created Date Observation Date Name Description Value Unit Range Abnormal Flag Note LastModifiedBy Organization Detail LastModifiedTime 10/11/1910/10/2024 COLOG UARD cologuard result Cancel led - Duplic ate Order not applic able Not Available [facility] [address], [place], [address], 10/10/2024 09:31:31 09/03/1909/02/2024 urina lysis , dipst ick Leukocytes Trace Not Available In-Offi ce Order Internal Use Only DO Not Attach Compendium DO Not Attach Compendium, Do Not Delete/merge, [id number] 09/02/2024 11:15:19 09/03/19 25 09/02/2024 urina lysis , dipst ick Nitrite negati ve Not Available In-Office Order Internal Use Only DO Not Attach Compendium DO Not Attach Compendium, Do Not Delete/merge, 09/02/2024 11:15:09/03/1909/02/2024 urina lysis , dipst ick Urobilinogen .2 Not Available In-Of fice Order Internal Use Only DO Not Attach Compendium DO Not Attach Compendium, Do Not Delete/merge, 09/02/2024 11:15:09/03/1909/02/2024 urina lysis , dipst ick Protein Negati ve Not Available In-Office Order Internal Use Only DO Not Attach Compendium DO Not Attach Compendium, Do Not Delete/merge, 09/02/2024 11:15:09/03/1909/02/2024 urina lysis , dipst ick pH 6.0 Not Available In-Office Order Internal Use Only DO Not Attach Compendium DO Not Attach Compendium, Do Not Delete/merge, 09/02/2024 11:15:09/03/1909/02/2024 urina lysis , dipst ick Blood Negati ve Not Available In-Office Order Internal Use Only DO Not Attach Compendium DO Not Attach Compendium, Do Not Delete/merge, 09/02/2024 11:15:09/03/1909/02/2024 urina lysis , dipst ick Specific [place] 1.020 Not Available In-Off ice Order Internal Use Only DO Not Attach Compendium DO Not Attach Compendium, Do Not Delete/merge, 09/02/2024 11:15:09/03/1909/02/2024 urina lysis , dipst ick Ketone Negati ve Not Available In-Office Order Internal Use Only DO Not Attach Compendium DO Not Attach Compendium, Do Not Delete/merge, 09/02/2024 11:15:09/03/1909/02/2024 urina lysis , dipst ick Bilirubin Negati ve Not Available In-Office Order Internal Use Only DO Not Attach Compendium DO Not Attach Compendium, Do Not Delete/merge, 09/02/2024 11:15:09/03/19 25 09/02/2024 urina lysis , dipst ick Glucose Negati ve Not Available In-Office Order Internal Use Only DO Not Attach Compendium DO Not Attach Compendium, Do Not Delete/merge, 09/02/2024 11:15:19 09/03/19 25 09/02/2024 urina lysis , dipst ick Appearance Clear Not Available In-Offi ce Order Internal Use Only DO Not Attach Compendium DO Not Attach Compendium, Do Not Delete/merge, 09/02/2024 11:15:19 09/03/1909/02/2024 urina lysis , dipst ick Color Yellow Not Available In-Office Order Internal Use Only DO Not Attach Compendium DO Not Attach Compendium, Do Not Delete/merge, 09/02/2024 11:15:19 10/05/1910/04/2024 COLOG UARD cologuard result reportable Sample Could Not Be Proces sed n/a The Colog uard Plus (TM) test was assig jimena to this speci men. Addit ion of stabi lizat ion buffe r to the speci men could not be verif ied. The patie nt will be conta cted to initi ate a new sampl e colle ction . Not Available [facility] [address], [place], [address], 10/07/2024 15:45:43 10/09/1910/08/2024 COMP. METAB OLIC PANEL (14) interpretati on: COMMEN T GFR estim ate at the follo wing level for >or=3 month s is class ified as follo ws: GFR WITH KIDNE Y DAMAG E WITHO UT KIDNE Y DAMAG E >or=9 0 Stage 1 Laina l 60-89 Stage 2 Decr eased GFR 30-59 Stage 3 Stage 3 15-29 Stage 4 Stage 4 <15 (or dialy sis) Stage 5 Stage 5 Estim ated GFR will over estim ate true GFR if serum creat inine is risin g as in acute renal failu re and will under estim ate true GFR if serum creat inine is decli korin as in resol ving acute renal failu re. Addit ional infor carey dumas may be found at www.k doqi. org. Not Available [facility] ([facility]) [address], [place], [address], 10/09/2024 11:13:29 10/09/19 25 10/09/2024 COMP. METAB OLIC PANEL (14) glucose 93 mg/dL 70-99 Not Available [facility] ([facility]) [address] [place], [address], 10/09/2024 11:13:29 10/09/19 25 10/09/2024 COMP. METAB OLIC PANEL (14) BUN 13 mg/dL 8-27 Not Available [facility] ([facility]) [address], [place], [address], 10/09/2024 11:13:29 10/09/19 25 10/09/2024 COMP. METAB OLIC PANEL (14) creatinine 1.00 mg/dL 0.57-1 .00 Not Available [facility] ([facility]) [address], [place], [address], 10/09/2024 11:13:29 10/09/19 25 10/09/2024 COMP. METAB OLIC PANEL (14) eGFR 63 mL/mi n/1.7 3 >59 Not Available [facility] ([facility]) [address] [place], [address], 10/09/2024 11:13:29 10/09/19 25 10/09/2024 COMP. METAB OLIC PANEL (14) BUN/creatini ne ratio 13 12-28 Not Available [facility] ([facility]) [address] [place], [address], 10/09/2024 11:13:29 10/09/19 25 10/09/2024 COMP. METAB OLIC PANEL (14) sodium 136 mmol/ L 134-14 4 Not Available [facility] ([facility]) [address] [place], [address], 10/09/2024 11:13:29 10/09/19 25 10/09/2024 COMP. METAB OLIC PANEL (14) potassium 4.6 mmol/ L 3.5-5. 2 Not Available [facility] ([facility]) [address] [place], [address], 10/09/2024 11:13:29 10/09/19 25 10/09/2024 COMP. METAB OLIC PANEL (14) chloride 101 mmol/ L 96-106 Not Available [facility] ([facility]) [address] [place], [address], 10/09/2024 11:13:29 10/09/19 25 10/09/2024 COMP. METAB OLIC PANEL (14) carbon dioxide, total 22 mmol/ L Not Available [facility] ([facility]) [address] [place], [address], 10/09/2024 11:13:29 10/09/19 25 10/09/2024 COMP. METAB OLIC PANEL (14) calcium 9.1 mg/dL 8.7-10 .3 Not Available [facility] ([facility]) [address] [place], [address], 10/09/2024 11:13:29 10/09/19 25 10/09/2024 COMP. METAB OLIC PANEL (14) protein, total 6.0 g/dL 6.0-8. 5 Not Available [facility] ([facility]) [address] [place], [address], 10/09/2024 11:13:29 10/09/19 25 10/09/2024 COMP. METAB OLIC PANEL (14) albumin 3.8 g/dL 3.9-4. 9 below low normal Not Available [facility] ([facility]) [address] [place], [address], 10/09/2024 11:13:29 10/09/19 25 10/09/2024 COMP. METAB OLIC PANEL (14) globulin, total 2.2 g/dL 1.5-4. 5 Not Available [facility] ([facility]) [address] [place], [address], 10/09/2024 11:13:29 10/09/19 25 10/09/2024 COMP. METAB OLIC PANEL (14) bilirubin, total 0.2 mg/dL 0.0-1. 2 Not Available [facility] ([facility]) [address] [place], [address], 10/09/2024 11:13:29 10/09/19 25 10/09/2024 COMP. METAB OLIC PANEL (14) alkaline phosphatase 84 IU/L 44-121 Not Available [facility]) [address] [place], [address], 10/09/2024 11:13:29 10/09/19 25 10/09/2024 COMP. METAB OLIC PANEL (14) AST (SGOT) 20 IU/L 0-40 Not Available [facility] ([facility]) [address] [place], [address], 10/09/2024 11:13:29 10/09/19 25 10/09/2024 COMP. METAB OLIC PANEL (14) ALT (SGPT) 10 IU/L 0-32 Not Available [facility] ([facility]) [address] [place], [address], 10/09/2024 11:13:29 11/22/19 25 11/22/2024 LIPID PANEL cholesterol, total 198 mg/dL 100-19 9 Not Available [facility] ([facility]) [address] [place], [address], 11/22/2024 08:25:14 11/22/19 25 11/22/2024 LIPID PANEL triglyceride s 123 mg/dL 0-149 Not Available [facility] ([facility]) [address] [place], [address], 11/22/2024 08:25:14 11/22/19 25 11/22/2024 LIPID PANEL HDL cholesterol 49 mg/dL >39 Not Available [facility] ([facility]) [address] [place], [address], 11/22/2024 08:25:14 11/22/1911/22/2024 LIPID PANEL VLDL cholesterol mónica 22 mg/dL 5-40 Not Available [facility] ([facility]) [address], [place], [address], 11/22/2024 08:25:14 11/22/19 25 11/22/2024 LIPID PANEL LDL chol calc ([facility]) 127 mg/dL 0-99 above high normal Not Available [facility] ([facility]) [address], [place], [address], 11/22/2024 08:25:14 11/22/1911/21/2024 COMP. METAB OLIC PANEL (14) interpretati on: COMMEN T GFR estim ate at the follo wing level for >or=3 month s is class ified as follo ws: GFR WITH KIDNE Y DAMAG E WITHO UT KIDNE Y DAMAG E >or=9 0 Stage 1 Laina l 60-89 Stage 2 Decr eased GFR 30-59 Stage 3 Stage 3 15-29 Stage 4 Stage 4 <15 (or dialy sis) Stage 5 Stage 5 Estim ated GFR will over estim ate true GFR if serum creat inine is risin g as in acute renal failu re and will under estim ate true GFR if serum creat inine is decli korin as in resol ving acute renal failu re. Addit ional infor carey dumas may be found at www.k doqi. org. Not Available [facility] ([facility]) [address] [place], [address], 11/22/2024 08:25:15 11/22/19 25 11/22/2024 COMP. METAB OLIC PANEL (14) glucose 98 mg/dL 70-99 Not Available [facility] ([facility]) [address] [place], [address], 11/22/2024 08:25:15 11/22/19 25 11/22/2024 COMP. METAB OLIC PANEL (14) BUN 15 mg/dL 8-27 Not Available [facility] ([facility]) [address] [place], [address], 11/22/2024 08:25:15 11/22/19 25 11/22/2024 COMP. METAB OLIC PANEL (14) creatinine 0.82 mg/dL 0.57-1 .00 Not Available [facility] ([facility]) [address] [place], [address], 11/22/2024 08:25:15 11/22/19 25 11/22/2024 COMP. METAB OLIC PANEL (14) eGFR 79 mL/mi n/1.7 3 >59 Not Available [facility] ([facility]) [address] [place], [address], 11/22/2024 08:25:15 11/22/19 25 11/22/2024 COMP. METAB OLIC PANEL (14) BUN/creatini ne ratio 18 12-28 Not Available [facility] ([facility]) [address] [place], [address], 11/22/2024 08:25:15 11/22/19 25 11/22/2024 COMP. METAB OLIC PANEL (14) sodium 140 mmol/ L 134-14 4 Not Available [facility] ([facility]) [address] [place], [address], 11/22/2024 08:25:15 11/22/19 25 11/22/2024 COMP. METAB OLIC PANEL (14) potassium 3.7 mmol/ L 3.5-5. 2 Not Available [facility] ([facility]) [address] [place], [address], 11/22/2024 08:25:15 11/22/19 25 11/22/2024 COMP. METAB OLIC PANEL (14) chloride 102 mmol/ L 96-106 Not Available [facility] ([facility]) [address] [place], [address], 11/22/2024 08:25:15 11/22/19 25 11/22/2024 COMP. METAB OLIC PANEL (14) carbon dioxide, total 24 mmol/ L 20-29 Not Available [facility] ([facility]) [address], [place], [address], 11/22/2024 08:25:15 11/22/19 25 11/22/2024 COMP. METAB OLIC PANEL (14) calcium 9.4 mg/dL 8.7-10 .3 Not Available [facility] ([facility]) [address] [place], [address], 11/22/2024 08:25:15 11/22/19 25 11/22/2024 COMP. METAB OLIC PANEL (14) protein, total 6.2 g/dL 6.0-8. 5 Not Available [facility] ([facility]) [address] [place], [address], 11/22/2024 08:25:15 11/22/19 25 11/22/2024 COMP. METAB OLIC PANEL (14) albumin 4.0 g/dL 3.9-4. 9 Not Available [facility] ([facility]) [address] [place], [address], 11/22/2024 08:25:15 11/22/19 25 11/22/2024 COMP. METAB OLIC PANEL (14) globulin, total 2.2 g/dL 1.5-4. 5 Not Available [facility] ([facility]) [address], [place], [address], 11/22/2024 08:25:15 11/22/1911/22/2024 COMP. METAB OLIC PANEL (14) bilirubin, total <0.2 mg/dL 0.0-1. 2 Not Available [facility] ([facility]) [address], [place], [address], 11/22/2024 08:25:15 11/22/19 25 11/22/2024 COMP. METAB OLIC PANEL (14) alkaline phosphatase 84 IU/L 49-135 Not Available [facility]) [address], [place], [address], 11/22/2024 08:25:15 11/22/19 25 11/22/2024 COMP. METAB OLIC PANEL (14) AST (SGOT) 20 IU/L 0-40 Not Available [facility] ([facility]) [address], [place], [address], 11/22/2024 08:25:15 11/22/1911/22/2024 COMP. METAB OLIC PANEL (14) ALT (SGPT) 11 IU/L 0-32 Not Available [facility] ([facility]) [address], [place], [address], 11/22/2024 08:25:15 11/22/1911/22/2024 CARDI OVASC ULAR REPOR T interpretati on Note Suppl ement al repor t is avail able. Not Available [facility] ([facility]) [address], [place], [address], 11/22/2024 08:25:16 11/22/1911/22/2024 CARDI OVASC ULAR REPOR T pdf . Not Available [facility] ([facility]) [address], [place], [address], 11/22/2024 08:25:16 11/22/1911/22/2024 CBC, PLATE LET, NO DIFFE RENTI AL WBC 8.1 x10e3 /uL 3.4-10 .8 Not Available [facility] ([facility]) [address], [place], [address], 11/22/2024 08:25:16 11/22/1911/22/2024 CBC, PLATE LET, NO DIFFE RENTI AL RBC 3.78 x10e6 /uL 3.77-5 .28 Not Available [facility] ([facility]) [address], [place], [address], 11/22/2024 08:25:16 11/22/1911/22/2024 CBC, PLATE LET, NO DIFFE RENTI AL hemoglobin 10.9 g/dL 11.1-1 5.9 below low normal Not Available [facility] ([facility]) [address], [place], [address], 11/22/2024 08:25:16 11/22/1911/22/2024 CBC, PLATE LET, NO DIFFE RENTI AL hematocrit 34.5 % 34.0-4 6.6 Not Available [facility] ([facility]) [address], [place], [address], 11/22/2024 08:25:16 11/22/1911/22/2024 CBC, PLATE LET, NO DIFFE RENTI AL MCV 91 fL 79-97 Not Available [facility] ([facility]) [address], [place], [address], 11/22/2024 08:25:16 11/22/1911/22/2024 CBC, PLATE LET, NO DIFFE RENTI AL MCH 28.8 pg 26.6-3 3.0 Not Available [facility] ([facility]) [address], [place], [address], 11/22/2024 08:25:16 11/22/1911/22/2024 CBC, PLATE LET, NO DIFFE RENTI AL MCHC 31.6 g/dL 31.5-3 5.7 Not Available [facility] ([facility]) [address], [place], [address], 11/22/2024 08:25:16 11/22/1911/22/2024 CBC, PLATE LET, NO DIFFE RENTI AL RDW 14.6 % 11.7-1 5.4 Not Available [facility] ([facility]) [address], [place], [address], 11/22/2024 08:25:16 11/22/1911/22/2024 CBC, PLATE LET, NO DIFFE RENTI AL platelets 449 x10e3 /uL 150-45 0 Not Available [facility] ([facility]) [address], [place], [address], 11/22/2024 08:25:16 12/11/1912/09/2024 PET, skull base to mid-t high No observ ation record ed. [facility] [address], [place], [address], 12/10/2024 12:52:03 Result Notes None recorded. Problems Name Problem SNOMED Code Status Onset Date Resolution Date Notes Provider Name and Address Organization Details Recorded Time Chronic obstructive pulmonary disease 17204947 SANJU [place], [place] - [facility] 9 14:01:18 Urinary tract infectious disease 47141934 SANJU [place], [place] - [facility] 9 14:01:19 Hyperlipidemia 67379028 SANJU [place] [facility] 9 14:01:19 Ecchymosis 910474515 SANJU [place] [facility] 9 14:01:19 Ingrowing nail 702479754 SANJU [place], [place] - [facility] 9 14:01:19 Mass of soft tissue 620737891 Active SANJU [place], [place] - [facility] 9 14:01:19 Problem Notes None recorded. Procedures Surgical History Date Name Laterality Status Provider Name and Address Organization Details Recorded Time 5 colonoscopy completed Nidhi Pizarro JASONKang [place] - [facility] 11/21/2024 11:26:27 Tubal Ligation completed SANJU [place] - [facility] 02/25/2018 14:08:57 Imaging Results None recorded. Procedure Notes None recorded. Medical Equipment None Reported. Allergies Allergen ID Allergen Name Allergen Category Reaction Reaction Severity Criticality Documentation Date Start Date Code Code System Note Provider Name and Address Organization Details Recorded Time 092437 propoxyph efren medicatio n Not available Not available Not available 02/25/2018 8785 RxNorm SANJU [place], [place] - [facility] 9 14:03:59 738841 codeine medicatio n Not available Not available Not available 02/25/2018 2670 RxNorm SANJU [place], [place] - [facility] 9 14:03:54 410647 hydrocodo ne Not available Not available Not available Not available 02/25/2018 5489 RxNorm SANJU [place], [place] - [facility] 9 14:03:55 615748 ibuprofen medicatio n Not available Not available Not available 02/25/2018 5640 RxNorm SANJU [place] - [facility] 9 14:03:57 639825 acetamino phen medicatio n Not available Not available Not available 02/25/2018 161 RxNorm SANJU [place] - [facility] 9 14:03:52 336782 atenolol medicatio n dizziness Not available Not available 09/18/2024 1202 RxNorm Nidhiselena Pizarro J[place]ang [place] - [facility] 5 11:23:32 Medications Name Sig Start Date Stop Date Status Note LastModified by Organization Details LastModified Time Qvar 80 mcg/actua tion Metered Aerosol oral inhaler INHALE TWO PUFFS BY MOUTH TWICE DAILY 02/25 completed Not Available Not Available Not Available clonidine HCl 0.1 mg tablet Take 1 tablet every day by oral route at bedtime for 30 days. 02/25 completed Not Available Not Available Not Available gabapenti n 600 mg tablet TAKE 1 TABLET BY MOUTH THREE TIMES DAILY active Not Available Not Available No t Available ipratropi um 0.5 mg-albute rol 3 mg (2.5 mg base)/3 mL nebulizat ion soln USE 1 AMPULE IN NEBULIZE R 4 TIMES DAILY NEEDED active Not Available Not Available No t Available albuterol sulfate 2.5 mg/3 mL (0.083 %) solution for nebulizat ion Inhale 3 mL 3 times a day by nebuliza tion route. 2024 active Not Available Not Available Not Avai lable cetirizin e 10 mg tablet TAKE 1 TABLET BY MOUTH ONCE DAILY NEEDED active Not Available Not Available No t Available ondansetr on HCl 8 mg tablet TAKE 1 TABLET BY MOUTH TWICE DAILY NEEDED FOR 10 DAYS 10/03 completed Not Available Not Available Not Available meloxicam 15 mg tablet TAKE 1 TABLET BY MOUTH ONCE DAILY FOR 90 DAYS active Not Available Not Available No t Available lisinopri l 20 mg tablet TAKE 1 TABLET BY MOUTH ONCE DAILY 07/30 completed Not Available Not Available Not Available prednison e 20 mg tablet 40 mg by oral route. 05/24 completed Not Available Not Available Not Available gabapenti n 400 mg capsule TAKE 1 CAPSULE BY MOUTH THREE TIMES DAILY 09/18 completed Not Available Not Available Not Available naproxen 250 mg tablet TAKE ONE TABLET BY MOUTH TWICE DAILY WITH FOOD 06/29 completed Not Available Not Available Not Available ciproflox acin 500 mg tablet TAKE 1 TABLET BY MOUTH TWICE DAILY FOR 10 DAYS 09/18 completed Not Available Not Available Not Available Tamiflu 75 mg capsule Take 1 capsule twice a day by oral route for 5 days. 05/17 completed Not Available Not Available Not Available sulfameth oxazole 800 mg-trimet hoprim 160 mg tablet TAKE 1 TABLET BY MOUTH EVERY 12 HOURS FOR 10 DAYS 06/06 completed Not Available Not Available Not Available omeprazol e 40 mg capsule,d elayed release Take 1 capsule every day by oral route as directed for 90 days. 10/08 completed upsets stomach Not Available Not Available Not Available tramadol 50 mg tablet TAKE 1 TABLET BY MOUTH EVERY 8 HOURS active Not Available Not Available No t Available Depo-Medr ol 80 mg/mL suspensio n for injection Take 1 mL by injectio n route. 03/25 completed Not Available Not Available Not Available alprazola m 0.5 mg tablet TAKE 1 TABLET BY MOUTH THREE TIMES DAILY NEEDED active Not Available Not Available No t Available citalopra m 20 mg tablet Take 1 tablet every day by oral route for 90 days. 02/25 completed Not Available Not Available Not Available famotidin e 20 mg tablet TAKE 1 TABLET BY MOUTH TWICE DAILY active Not Available Not Available No t Available Imodium A-D 2 mg tablet Take 1 tablet 3 times a day by oral route as needed. 2024 active Not Available Not Available Not Avai lable dicyclomi ne 20 mg tablet TAKE 1 TABLET BY MOUTH THREE TIMES DAILY NEEDED FOR ABDOMINA L PAIN active Not Available Not Available No t Available ciproflox acin 0.3 % eye drops 3 drops to affected ear TID for 7 days 06/29 completed Not Available Not Available Not Available meclizine 25 mg tablet TAKE 1 TABLET BY MOUTH THREE TIMES DAILY NEEDED active Not Available Not Available No t Available benzonata te 100 mg capsule Take 100 mg by oral route. 02/25 completed Not Available Not Available Not Available cephalexi n 500 mg capsule TAKE 1 CAPSULE BY MOUTH EVERY 8 HOURS DIRECTED FOR 10 DAYS 03/26 completed Not Available Not Available Not Available simvastat in 20 mg tablet TAKE 1 TABLET BY MOUTH ONCE DAILY active Not Available Not Available No t Available esomepraz ole magnesium 40 mg capsule,d elayed release Take 1 capsule every day by oral route for 90 days. 04/01 completed Not Available Not Available Not Available triamcino lone acetonide 0.1 % topical ointment APPLY A THIN LAYER TO THE AFFECTED AREA(S) BY TOPICAL ROUTE 2 TIMES PER DAY 02/25 completed Not Available Not Available Not Available ranitidin e 150 mg tablet TAKE 1 TABLET BY MOUTH TWICE DAILY 06/29 completed Not Available Not Available Not Available buspirone 10 mg tablet Take 1 tablet twice a day by oral route for 30 days. 06/29 completed Not Available Not Available Not Available promethaz ine 25 mg tablet Take 1 tablet every 4 hours by oral route as needed for 10 days. 02/25 completed Not Available Not Available Not Available Advair Diskus 250 mcg-50 mcg/dose powder for inhalatio n 1 puff bid 11/25 completed Not Available Not Available Not Available nicotine 21 mg/24 hr daily transderm al patch Apply 1 patch every day by transder mal route for 30 days. 02/25 completed Not Available Not Available Not Available nitroglyc jose 0.4 mg sublingua l tablet DISSOLVE ONE TABLET UNDER THE TONGUE EVERY 5 MINUTES NEEDED FOR CHEST PAIN. DO NOT EXCEED A TOTAL OF 3 DOSES IN 15 MINUTES active Not Available Not Available No t Available gabapenti n 300 mg capsule TAKE 1 CAPSULE BY MOUTH THREE TIMES DAILY 09/02 completed Not Available Not Available Not Available hydrocort isone 2.5 % topical cream APPLY A THIN LAYER OF CREAM TO AFFECTED AREA TWICE DAILY FOR BLEEDING HEMORRHO ID active Not Available Not Available No t Available codeine 10 mg-guaife nesin 100 mg/5 mL oral liquid 10 ml qid prn 06/06 completed Not Available Not Available Not Available bisacodyl 5 mg tablet,de layed release TAKE 2 TABLETS BY MOUTH ONCE DAILY active Not Available Not Available No t Available zolpidem 5 mg tablet TAKE ONE TABLET BY MOUTH ONCE DAILY AT BEDTIME 02/25 completed Not Available Not Available Not Available gabapenti n 100 mg capsule TAKE 1 CAPSULE BY MOUTH THREE TIMES DAILY NEEDED 03/26 completed increase d to 300mg Not Available Not Available Not Available levofloxa bobby 750 mg tablet Take 1 tablet every day by oral route for 7 days. 02/25 completed Not Available Not Available Not Available methylpre dnisolone 4 mg tablets in a dose pack TAKE DIRECTED ON PACKAGE 09/02 completed Not Available Not Available Not Available albuterol sulfate HFA 90 mcg/actua tion aerosol inhaler INHALE 2 PUFFS BY MOUTH 3 TO 4 TIMES DAILY NEEDED active Not Available Not Available No t Available lisinopri l 40 mg tablet TAKE 1 TABLET BY MOUTH ONCE DAILY active Not Available Not Available No t Available ondansetr on 4 mg disintegr ating tablet DISSOLVE 1 TABLET IN MOUTH EVERY 8 HOURS NEEDED FOR NAUSEA AND VOMITING active Not Available Not Available No t Available fluticaso ne propionat e 50 mcg/actua tion nasal spray,she pension USE 1 SPRAY(S) IN EACH NOSTRIL ONCE DAILY active Not Available Not Available No t Available atenolol 50 mg tablet TAKE 1 TABLET BY MOUTH ONCE DAILY 09/18 completed making dizzy Not Available Not Available Not Available naproxen 500 mg tablet TAKE 1/2 (ONE-SUKUMAR F) TABLET BY MOUTH TWICE DAILY WITH FOOD 09/02 completed Not Available Not Available Not Available metoclopr amide 10 mg tablet 04/01 completed Not Available Not Available Not Available amoxicill in 875 mg-potass ium clavulana te 125 mg tablet TAKE 1 TABLET BY MOUTH EVERY 12 HOURS FOR 7 DAYS 11/21 completed Not Available Not Available Not Available azithromy bobby 500 mg tablet TAKE 1 TABLET BY MOUTH ONCE DAILY FOR 3 DAYS 09/02 completed Not Available Not Available Not Available Stool Softener- Laxative 8.6 mg-50 mg tablet TAKE 2 TABLETS BY MOUTH ONCE DAILY NEEDED active Not Available Not Available No t Available Spiriva with HandiHale r 18 mcg and inhalatio n capsules Inhale 1 capsule every day by inhalati on route for 90 days. 09/18 completed Not Available Not Available Not Available Symbicort 160 mcg-4.5 mcg/actua tion HFA aerosol inhaler 2 puffs bid 09/18 completed Not Available Not Available Not Available diclofena c 1 % topical gel APPLY 2 GRAMS TO THE AFFECTED AREA(S) BY TOPICAL ROUTE 4 TIMES PER DAY 03/26 completed Not Available Not Available Not Available Dulera 100 mcg-5 mcg/actua tion HFA aerosol inhaler 2 puffs bid 06/29 completed Not Available Not Available Not Available sodium,po tassium,m ag sulfates 17.5 gram-3.13 gram-1.6 gram oral soln DILUTE. MIX AND DRINK EARLY IN THE EVENING BEFORE THE PROCEURE AND NEXT MORNING DAY OF THE PROCEDUR E. FINISH AT LEAST 2 HOUR BEFORE PROCEDUR E. FOLLOW WITH 960 ML OF WATER. 11/21 completed Not Available Not Available Not Available lidocaine 5 % topical ointment APPLY OINTMENT EXTERNAL LY TO AFFECTED AREA(S) 1-4 TIMES DAILY NEEDED active Not Available Not Available No t Available Linzess 145 mcg capsule TAKE 1 CAPSULE BY MOUTH ONCE DAILY FOR 10 DAYS 09/02 completed Not Available Not Available Not Available Breo Ellipta 100 mcg-25 mcg/dose powder for inhalatio n INHALE ONE PUFF BY MOUTH ONCE DAILY 02/15 completed Not Available Not Available Not Available Aerospan 80 mcg/actua tion HFA aerosol inhaler 1 inhalati on bid 06/29 completed Not Available Not Available Not Available Anoro Ellipta 62.5 mcg-25 mcg/actua tion powder for inhalatio n INHALE 1 PUFF BY MOUTH ONCE DAILY active Not Available Not Available No t Available Asmanex HFA 200 mcg/actua tion aerosol inhaler INHALE TWO PUFFS TWICE DAILY 02/25 completed Not Available Not Available Not Available Stiolto Respimat 2.5 mcg-2.5 mcg/actua tion solution for inhalatio n INHALE 2 PUFFS BY MOUTH ONCE DAILY active Not Available Not Available No t Available fluticaso ne 113 mcg-salme terol 14 mcg/actua tion breath activated powdr 1 inhalati on twice daily 06/29 completed Not Available Not Available Not Available Qvar RediHaler 40 mcg/actua tion HFA breath activated aerosol INHALE 1 PUFF TWICE DAILY 03/24 completed not using Not Available Not Available Not Available albuterol sulf 90 mcg/actua tion breath activated powder inhaler,s ensor 2 puffs qid prn 09/18 completed Not Available Not Available Not Available ID NOW COVID-19 Test Kit USE DIRECTED 01/24 completed Not Available Not Available Not Available Sutab 1.479-0.1 88-0.225 gram tablet TAKE 24 TABLETS BY MOUTH ONCE FOR 1 DOSE 11/21 completed Not Available Not Available Not Available Vitals Date Recorded Body height Body mass index (BMI) Body weight Oxygen saturation Oxygen saturation in Arterial blood by Pulse oximetry Heart rate Respiratory rate Body temperature Systolic And Diastolic Provider Name and Address Organization Details Last Updated DateTime 5 157.48 cm 30.4 kg/m2 48324.3 3 g 98 % 98 % 82 /min 18 /min 98.2 [degF] 120/72 mm[Hg] Carito Scott MA [facility] 5 11:46:59 Date Recorded Body height Body mass index (BMI) Body weight Oxygen saturation Oxygen saturation in Arterial blood by Pulse oximetry Heart rate Systolic And Diastolic Provider Name and Address Organization Details Last Updated DateTime 5 157.48 cm 27.3 kg/m2 51277.2 6 g 99 % 99 % 107 /min 143/79 mm[Hg] Laurence Alba MA [facility] 5 11:04:38 Date Recorded Body height Body mass index (BMI) Body weight Oxygen saturation Oxygen saturation in Arterial blood by Pulse oximetry Heart rate Systolic And Diastolic Provider Name and Address Organization Details Last Updated DateTime 5 157.48 cm 26.2 kg/m2 74647.7 1 g 99 % 99 % 115 /min 72/50 mm[Hg] Laurence Alba MA [facility] 5 11:03:23 Date Recorded Body height Body mass index (BMI) Body weight Oxygen saturation Oxygen saturation in Arterial blood by Pulse oximetry Heart rate Systolic And Diastolic Provider Name and Address Organization Details Last Updated DateTime 5 157.48 cm 26.2 kg/m2 09101.7 1 g 97 % 97 % 89 /min 130/80 mm[Hg] Laurence Alba MA [facility] 5 10:49:50 Date Recorded Body height Body mass index (BMI) Body weight Oxygen saturation Oxygen saturation in Arterial blood by Pulse oximetry Heart rate Systolic And Diastolic Provider Name and Address Organization Details Last Updated DateTime 5 157.48 cm 24 kg/m2 68817.6 g 99 % 99 % 71 /min 112/70 mm[Hg] JACOB Skinner [facility] 11:28:29 Social History Question Answer Notes LastModified by Organizat ion Details LastModified Time Tobacco Smoking Status Current Every Day Smoker SANJU Bustamante, [facility] 11/30/2014 15:58:30 Do You Have An Advance Directive? No Information not available 06/06/2022 Are You Blind Or Do You Have Difficulty Seeing? No Information not available 10/03/2021 What Is Your Level Of Caffeine Consumption? Moderate Information not available 09/12/2019 How Much Tobacco Do You Chew? None Information not available 09/12/2019 In The 14 Days Before Symptom Onset, Have You Had Close Contact With A Laboratory-confir med COVID-19 While That Case Was Ill? No Information not available 04/01/2020 In The 14 Days Before Symptom Onset, Have You Had Close Contact With A Person Who Is Under Investigation For COVID-19 While That Person Was Ill? No Information not available 04/01/2020 Have You Been To An Area Known To Be High Risk For COVID-19? No Information not available 04/01/2020 Are You Deaf Or Do You Have Serious Difficulty Hearing? No Information not available 10/03/2021 What Type Of Diet Are You Following? REGULAR Information not available 09/12/2019 Which Illicit Or Recreational Drugs Have You Used? Marjuiana Information not available 09/12/2019 Are There Any Guns Present In Your Home? No Information not available 06/06/2022 Live Alone Or With Others? With Others Information not available 09/12/2019 What Was The Date Of Your Most Recent Tobacco Screening? 11/21/2024 Information not available 11/21/2024 What Is Your Relationship Status? Information not available 04/01/2020 Do You Use Your Seat Belt Or Car Seat Routinely? Yes Information not available 10/03/2021 Do You Have Smoke And Carbon Monoxide Detectors In Your Home? Yes Information not available 11/01/2020 At What Age Did You Start Smoking Tobacco? 11 Information not available 04/01/2020 Are You Passively Exposed To Smoke? Yes Information no t available 11/01/2020 How Much Tobacco Do You Smoke? 0.5 PPD 10 Cigs Per Day [email or web address] Information not available 02/25/2018 General Stress Level Medium Information not available 03/11/2020 Do You Use Sunscreen Routinely? No Information not available 06/06/2022 Has Tobacco Cessation Counseling Been Provided? Yes Information not available 09/10/2018 On What Date Was Tobacco Cessation Counseling Provided? 11/21/2024 Information not available 11/21/2024 How Many Years Have You Smoked Tobacco? 40 [email or web address] Information not available 11/30/2014 Have You Recently Traveled Abroad? No Information not available 04/01/2020 Sex: Female Functional Status Question Answer Note LastModified by Organizat ion Details LastModified Time Do you use any illicit or recreational drugs? Yes marijuana Information not available 02/27/2022 Do you or have you ever used any other forms of tobacco or nicotine? No Information not available 11/01/2020 What is your level of alcohol consumption? None Information not available 02/27/2022 Do you or have you ever used smokeless tobacco? Never used smokeless tobacco Information not available 09/12/2019 Are you currently employed? No Retired Information not available 04/08/2021 Are you able to care for yourself independently? Yes Information not available 09/12/2019 Do you or have you ever used e-cigarettes or vape? Never used electronic cigarettes Information not available 09/12/2019 Mental Status Question Answer Note LastModified by Organization D etails LastModified Time Do you feel stressed (tense, restless, nervous, or anxious, or unable to sleep at night)? [id number] Information not available 06/06/2022 Family History Relationship Description Onset Age of this Age Resolved Age Notes LastModified by Organization Details LastModified Time Mother Heart disease [email or web address] Not available 05/21 16:26:14 Mother Hypertensive disorder [email or web address] Not available 05/21 16:26:14 Mother Hyperlipidem ia [email or web address] Not available 05/21 16:26:14 Father Asthma Not availabl e 06/14/2015 16:26:14 Father Diabetes mellitus [email or web address] Not available 05/21 16:26:14 Father Heart disease [email or web address] Not available 05/21 16:26:14 Father Hypertensive disorder [email or web address] Not available 05/21 16:26:14 Father Hyperlipidem ia [email or web address] Not available 05/21 16:26:14 Paternal Aunt Myocardial infarction [email or web address] Not available 08/2018 14:08:20 Medical History Condition Response Coronary Artery Disease N Other N High Blood Pressure Y Atrial Fibrillation N Kidney or Bladder Problems N Thyroid Problems N GI Problems N Depression N COPD Y Blood Clots N Skin Problems N Anemia N Heart Attack ([place]) N Anxiety Disorder Y Diabetes N Muscle, Joint, or Bone Problems N Seizures/Epilepsy N Acid Reflux (GERD) N Cancer N Stroke N Asthma N Allergies N High Cholesterol Y Hepatitis N Liver Disease N Headaches Y Osteoporosis N Heart Failure N Gynecological History Statement/Question Response Date of Last Pap Smear Date of Last Mammogram Obstetrics History GPAL:G 0 P 0 0 0 0 Immunizations Vaccine Type Date Status Note Provider Nam e and Address Organization Details Recorded Time COVID-19, mRNA, LNP-S, PF, 100 mcg/0.5mL dose or 50 mcg/0.25mL dose 08/21/2020 completed Laurence Alba MA [place], [place] - COUNT INCLUDES [facility] 09/11/2022 08:41:11 Past Encounters Encounter ID Performer Location Encounter Start Date Encounter Closed Date Diagnosis/Indication Diagnosis SNOMED-CT Code Diagnosis ICD10 Code Diagnosis IMO Codes Diagnosis Note [id number] MD Paulie Finnegan [facility] [address] [place] [address] 11/30/2014 15:43:13 11/30/2014 17:49:02 Chronic obstructive pulmonary disease 71019721 J41.8 [id number] PARRIS Moya [address] [place] [address] 05/04/2015 15:25:07 05/04/2015 16:45:15 Chronic obstructive pulmonary disease 33152705 J41.8 Urinary tr act infectious disease 05467421 N39.0 [id number] Ana Rosa Forman PA-C [facility] [address] [place] [address] 05/18/2015 16:56:50 05/18/2015 17:24:53 Chronic obstructive pulmonary disease 45921566 J41.8 Hyperlipidemia 87908809 E78.5 Ecchymosis 622258239 R58 Ingrowing nail 594005235 L60.0 [id number] Ana Rosa Forman PA-C [facility] [address] [place] [address] 05/24/2015 15:47:26 05/25/2015 09:10:07 Ingrowing nail 599861736 L60.0 [id number] Ana Rosa Forman PA-C [facility] [address] [place] [address] 06/14/2015 16:05:05 06/14/2015 16:50:10 Chronic obstructive pulmonary disease 18935860 J41.8 Mass of soft tissue 4449 34840 R22.9 [id number] Phil Vo MD [facility] [address] [place] [address] 02/16/2016 15:29:11 02/16/2016 16:27:42 Chronic obstructive pulmonary disease 40033884 J44.9 Acute bron chitis with bronchospasm 71562155 J20.0 Essential hypertension 85344132 I10 [id number] Phil Vo MD [facility] [address] [place] [address] 02/25/2016 14:45:38 02/25/2016 16:13:50 Hyperlipidemia 89989270 E78.01 [id number] Phil Vo MD [facility] [address] [place] [address] 08/01/2016 11:39:16 08/01/2016 14:54:06 Generalized anxiety disorder 84694582 F41.1 Essential hypertension 90155669 I10 [id number] BAILEE Langley-COREY [facility] [address] [place] [address] 10/18/2016 15:56:40 10/18/2016 17:05:28 Purpuric rash 511282294 D69.2 [id number] Phil Vo MD [facility] [address] [place] [address] 03/22/2017 11:09:23 03/22/2017 13:50:52 Chronic obstructive pulmonary disease 78339304 J41.1 Essential hypertension 00559035 I10 Long-term drug therapy 702117677 Z79.899 Lumbar radiculopathy 128 437810 M54.16 [id number] Phil Vo MD [facility] [address] [place] [address] 05/17/2017 13:21:06 05/17/2017 15:58:31 Community acquired pneumonia 164496607 J13 [id number] Phil Vo MD [facility] [address] [place] [address] 07/30/2017 15:38:38 07/30/2017 16:31:02 Acute exacerbation of chronic bronchitis 044265626 J44.1 [id number] Phil Vo MD [facility] [address] [place] [address] 09/24/2017 14:27:09 09/24/2017 15:26:11 Chronic obstructive pulmonary disease 01494572 J41.1 Essential hypertension 90228517 I10 Generalize d anxiety disorder 21010371 F41.1 [id number] Phil Vo MD [facility] [address] [place] [address] 10/12/2017 10:13:48 10/12/2017 10:31:52 Chronic obstructive pulmonary disease 62644316 J41.1 Hyperlipidemia 07674018 E78.01 [id number] Phil Vo MD [facility] [address] [place] [address] 10/17/2017 10:42:01 10/17/2017 11:02:11 Chronic obstructive pulmonary disease 19899977 J41.1 Nausea and vomiting 1693 2000 R11.2 [id number] Phil Vo MD [facility] [address] [place] [address] 10/24/2017 10:41:47 10/24/2017 11:33:48 Essential hypertension 39679153 I10 [id number] PARRIS Moya [facility] [address] [place] [address] 11/19/2017 14:57:24 11/19/2017 16:00:15 Chronic obstructive pulmonary disease 22704782 J41.1 [id number] [facility] [address] [place] [address] 02/25/2018 13:58:14 02/25/2018 14:53:24 Medication monitoring 505141238 Z51.81 Pt. state she has not been taking tramadol with cough medication s so she has not been on it for 4 days. Verbally discussed Controlled Substance Agreement with patient and verbally understood and filled out Agreement jacob dodge 02/25/2018 Smoker 08570523 F17.200 Pt. states she is a current everyday smoker and smokes approximat rebecca 10 cigs per day. Nausea 477505906 R11.0 Lower abdominal pain 545 69709 R10.33 Generalize d anxiety disorder 32421322 F41.1 Essential hypertension 71032613 I10 Moderate c hronic obstructive pulmonary disease 310536200 J41.0 [id number] PARRIS Moya [facility] [address] [place] [address] 04/23/2018 11:17:06 04/23/2018 11:58:19 Moderate chronic obstructive pulmonary disease 492890127 J41.0 Long-term drug therapy 385782957 Z79.275 [id number] PARRIS Moya [facility] [address] [place] [address] 09/10/2018 09:54:58 09/10/2018 10:49:37 Orthostatic hypotension 61826085 I95.1 Essential hypertension 58224491 I10 [id number] PARRIS Moya [facility] [address] [place] [address] 10/29/2018 09:52:21 10/29/2018 11:31:34 Chronic obstructive pulmonary disease 31353744 J41.1 [id number] PARRIS Moya [facility] [address] [place] [address] 03/25/2019 10:13:03 03/25/2019 13:30:22 Bilateral earache 266506599 H92.03 Essential hypertension 87643591 I10 Medication monitoring 39 6441095 Z51.81 Pt. state she has not been taking tramadol with cough medication s so she has not been on it for 4 days. Verbally discussed Controlled Substance Agreement with patient and verbally understood and filled out Agreement sd,a 02/25/2018 [id number] Ana Rosa Forman PA-C [facility] [address] [place] [address] 05/20/2019 11:02:34 05/20/2019 13:34:42 Chronic obstructive pulmonary disease 46124697 J41.1 Persistent cough 1035314 02 R05 [id number] Ana Rosa Forman PA-C [facility] [address] [place] [address] 06/30/2019 10:11:18 06/30/2019 13:03:05 New daily persistent headache 0613818127 88894 G44.52 [id number] Ana Rosa Forman PA-C [facility] [address] [place] [address] 09/12/2019 16:00:28 09/12/2019 16:42:19 Chronic obstructive pulmonary disease 10299744 J41.1 Essential hypertension 58675580 I10 Hyperlipidemia 18782504 E78.2 [id number] Ana Rosa Forman PA-C [facility] [address] [place] [address] 10/09/2019 10:13:28 10/09/2019 12:27:06 Chronic obstructive pulmonary disease 22535100 J41.1 Screening for malignant neoplasm of colon 051293896 Z12.11 Benign par oxysmal positional vertigo 154438033 H81.12 [id number] Phil Vo MD [facility] [address] [place] [address] 12/25/2019 09:35:47 12/25/2019 16:38:05 Chronic obstructive pulmonary disease 25204850 J41.1 Urinary tr act infectious disease 68009973 N39.0 Essential hypertension 82961240 I10 [id number] Phil Vo MD [facility] [address] [place] [address] 12/30/2019 09:32:31 01/06/2020 09:22:47 Chronic obstructive pulmonary disease 89395871 J41.1 Viral anant roenteritis caused by [place]-like agent 16292445 A08.11 [id number] Phil Vo MD [facility] [address] [place] [address] 03/11/2020 09:31:01 03/15/2020 12:19:35 Chronic obstructive pulmonary disease 52178616 J41.1 Located Within [facility] 428262757 R11.0 [id number] Ana Rosa Forman PA-C [facility] [address] [place] [address] 04/01/2020 14:48:32 04/03/2020 10:47:15 Acute exacerbation of chronic obstructive pulmonary disease 579252461 J44.1 Persistent cough 3637274 02 R05 [id number] Ana Rosa Forman PA-C [facility] [address] [place] [address] 04/08/2020 09:51:47 04/12/2020 15:18:37 COVID-19 897579351 U07.1 [id number] Phil Vo MD [facility] [address] [place] [address] 05/20/2020 11:58:36 05/21/2020 12:35:08 Long-term drug therapy 705934651 Z79.273 [id number] Phil Vo MD [facility] [address] [place] [address] 11/01/2020 11:39:23 11/01/2020 15:22:34 Acute bronchitis with bronchospasm 66230002 J20.0 Suspected COVID-19 82985 4004 Z03.89 [id number] Ana Rosa Forman PA-C [facility] [address] [place] [address] 01/24/2021 11:36:20 01/24/2021 18:32:23 Chronic obstructive pulmonary disease 87771145 J41.1 Hyperlipidemia 06332294 E78.2 Body mass index 30+ - obesity 821177034 Z68.31 Plantar wa rt of left foot 4661501254 [id number] B07.0 [id number] Phil Vo MD [facility] [address] [place] [address] 04/08/2021 11:38:32 04/08/2021 14:04:44 Chronic obstructive pulmonary disease 01248377 J41.1 [id number] Ana Rosa Forman PA-C [facility] [address] [place] [address] 10/03/2021 10:23:23 10/03/2021 11:51:14 Adult health examination 764209391 Z00.00 Mixed urin lizy incontinence 554354470 N39.46 Raised janina orrheic keratosis 9737406513 25356 L82.1 Acute urin lizy tract infection 664094743 N39.0 [id number] Ana Rosa Forman PA-C [facility] [address] [place] [address] 02/27/2022 11:32:24 02/27/2022 13:38:28 Dysuria 77887081 R30.0 Overweight 256838164 E66 .3 Chronic constipation 236 138013 K59.09 [id number] Ana Rosa Forman PA-C [facility] [address] [place] [address] 06/06/2022 10:21:44 06/07/2022 13:43:08 Essential hypertension 51840970 I10 Moderate c hronic obstructive pulmonary disease 646339413 J41.0 Overweight 046447045 E66 .3 Lumbar radiculopathy 128 926863 M54.16 [id number] Phil Vo MD [facility] [address] [place] [address] 08/11/2022 10:23:44 08/14/2022 14:39:08 Chronic obstructive pulmonary disease 19669457 J41.1 Tendinitis of long head of biceps brachii of left shoulder 961724791 M75.22 Overweight 666234590 E66 .3 [id number] Phil Vo MD [facility] [address] [place] [address] 09/18/2022 10:22:52 09/18/2022 17:26:30 Benign paroxysmal positional vertigo 862983679 H81.12 Essential hypertension 62938551 I10 Overweight 904257713 E66 .3 [id number] Ana Rosa Forman PA-C [facility] [address] [place] [address] 01/04/2023 10:37:43 01/12/2023 12:09:03 Long-term drug therapy [id number] Z79.899 Lumbar radiculopathy 128 160416 M54.16 Dysuria 91983002 R30.0 Overweight 155367447 E66 .3 Essential hypertension 97303521 I10 [id number] Ana Rosa Forman PA-C [facility] [address] [place] [address] 03/26/2023 10:49:35 03/27/2023 15:13:14 Hemorrhoids 23611179 K64.8 Overweight 654570075 E66 .3 Lower abdominal pain 545 36605 R10.33 [id number] Phil Vo MD [facility] [address] [place] [address] 07/09/2023 10:43:48 07/17/2023 12:15:44 Dyspnea on exertion 84481252 R06.09 Moderate c hronic obstructive pulmonary disease 003187995 J41.0 Overweight 650107792 E66 .3 Essential hypertension 71669216 I10 Lumbar radiculopathy 128 372707 M54.16 [id number] Phil Vo MD [facility] [address] [place] [address] 07/31/2023 10:18:06 08/01/2023 09:21:46 Dyspnea on exertion 40876442 R06.09 Hyperlipidemia 24830001 E78.2 Nicotine dependence 5629 4008 F17.210 Overweight 577113486 E66 .3 [id number] Ana Rosa Forman PA-C [facility] [address] [place] [address] 11/26/2023 14:46:28 11/29/2023 13:51:20 Long-term drug therapy 762025180 Z79.899 Opioid dependence 218641 00 F11.20 Moderate c hronic obstructive pulmonary disease 273021374 J41.0 Overweight 581187111 E66 .3 Mixed hyperlipidemia 267 510712 E78.2 [id number] Phil Vo MD [facility] [address] [place] [address] 03/24/2024 11:30:00 03/27/2024 16:09:37 Acute bronchitis with bronchospasm 73249741 J20.0 Overweight 248027147 E66 .3 Lumbar radiculopathy 128 785591 M54.16 [id number] Phil Vo MD [facility] [address] [place] [address] 09/02/2024 10:49:53 09/03/2024 14:05:46 Dysuria 83408968 R30.0 76887 Hypertensive disorder 38 226320 I10 needs to resume second blood pressure meds.. Benign par oxysmal positional vertigo 112070885 H81.12 Osteoarthritis 343358009 M15.0 5824425 Lumbar radiculopathy 128 163183 M54.16 76919 Bleeding hemorrhoids 515 29490 K64.9 4319 Screening for malignant neoplasm of colon 147550101 Z12.11 Overweight in adulthood with body mass index of 25 or more but less than 30 370699470 Z68.27 628233 Overweight 366820273 E66 .3 [id number] Phil Vo MD [facility] [address] [place] [address] 09/18/2024 10:50:44 09/19/2024 07:32:35 Clostridium difficile diarrhea 1413736890 102 A04.72 442055 go to ER Low blood pressure 59713 003 I95.9 R03.1 87946639 Blood-tinged feces 26064 87768 85961 K92.1 7670 Overweight 169150135 E66 .3 [id number] Phil Vo MD [facility] [address] [place] [address] 10/08/2024 10:29:59 10/09/2024 09:16:00 Acute kidney injury 44308381 N17.9 456498 Chronic constipation 236 981790 K59.09 251609 Screening for malignant neoplasm of colon 373938425 Z12.11 Overweight in adulthood with body mass index of 25 or more but less than 30 759176587 Z68.26 7359752674 [id number] Ana Rosa Forman PA-C 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.8 0258330 Normal weight 02694252 Z 68.24 5042969116 Essential hypertension 58306026 I10 63278 Health Concerns Section Related Observation LastModified by Organization Detai ls LastModified Time None Recorded Concern Status LastModified by Organization Details LastModified Time None Recorded Advance Directives Directive N: Payers Insurance Date Sequence Insurance Name Policy Number Policy Sherwood Covered Member ID Sherwood Member ID Guarantor Name 09/02/2024 1 [facility] - DOS ON OR AFTER 20 (MEDICAID REPLACEMENT - HMO) Vianca West [id number] Vianca West 09/02/2024 4 [place] [place] [employer] Vianca West [id number] Vianca West 09/02/2024 [place] [facility] Vianca West [id number] Vianca West 11/21/2024 2 [place] WHEN MEDICARE OR MEDICARE REPLACEMENT PRIMARY) Vianca West [id number] Vianca West 09/02/2024 3 [facility] - DOS ON OR AFTER 2020 - DUAL ELIGIBLE (MEDICARE REPLACEMENT/AD VANTAGE - HMO) Vianca West [id number] Vianca West 11/21/2024 1 [place] [facility] Vianca West [id number] Vianca West 11/30/2014 1 *SELF PAY* Ca jaycee West 05/04/2015 SLIDING FEE SCHEDULE - DISCOUNT Vinaca West 09/02/2024 1 [facility] - DOS PRIOR TO 2020 (MEDICAID REPLACEMENT - HMO) Vianca West [id number] Vianca West 11/20/2024 [place] - [facility] Vianca West [id number] Vianca West 12/09/2024 1 [place] Vianca West [id number] Vianca West 10/08/2024 3 [place] Vianca West [id number] Vianca West Notes Date Note Type Note Provider Name and Address Organization Details Recorded Time 03/24/2024 text/html ROS as noted in the HPI uri symptoms...cough body aches fever...2 weeks Ana Rosa Forman PA-C Attn: Accounting,[address] [facility], [place], [place], [address] [place] [address], [facility] - COUNT INCLUDES THE [facility] 03/24/2024 12:12:35 09/02/2024 text/html ROS as noted in the HPI cant complete colonoscopy due to cant complete prep...says she has mucous and gassy pain..has hemorrhoids..wants lidocaine topical for these...also urine symptoms..also left hip pain and needs gabapentin increase Ana Rosa Forman PA-C Attn: Accounting,[address] [facility], [place], [place], [address] [place] [address], [facility] 09/02/2024 11:37:45 09/18/2024 text/html ROS as noted in the HPI has had foul stool..low blood pressure..feels dizzy..very weak..constant diarrhea...says stools are bloody...symptoms all began after antibiotic course for uti Ana Rosa Forman PA-C Attn: Accounting,[address] [place], [place], [address] [place] [address], [facility] 09/18/2024 11:12:50 11/21/2024 text/html ROS as noted in the HPI recently diagnosed with colon cancer..will be seeing oncology at [facility]...liver masses also found..wont see renal until end of month Ana Rosa Forman PA-C Attn: Accounting,[address] [facility], [place], [address], [facility] 11/21/2024 12:09:07 OBGyn Episode No OBEpisode recorded.
--- OUTSIDE RECORDS SUMMARY | 2024-12-15 01:04 | XMS_ITS | Clinical Summary ---
Author Organization [facility] Address [address] [place] [address] Phone Care Team Providers Care Manometer Technician Name Role Phone Caleb Forman Primary Care Provider [phone] Mack Orellana MD Unavailable Allergies No known [...] Date Smoking Tobacco: Every Day Cigarettes 0.9 54.8 Started: 1970 Smokeless Tobacco: Never Tobacco Cessation:Ready [...] 2) 2009 Lung Cancer Screening 06/14/2016 06/15/2015 Welcome to Medicare (IPPE) [id number] 02/20/2024 Influenza Immunization (#1) 2024 SARS-COV-2 Immunization (2 - season) 2024 08/21/2020 Respiratory Syncytial Virus (RSV) [...] AN ELECTRONICALLY VERIFIED REPORT 06/15/2015 9:38 PM: Jet Dowd M.D. Jet Dowd M.D. Radiologist AT:at [facility] Procedure Note Jet [...] optimization technique for this examination. Caleb Forman [facility] ORDERABLES Final Resul t from Last 3 Months or Most Recently Relevant to Health Maintenance Insurance MEDICARE [place]ICAID [place] Care Teams Manometer Technician Relationship Specialty Start Date End Date Caleb Forman [address] [place] [address] PCP - General Physician Hob Machine Operator 06/14/15 Mack Orellana MD [address] [address] Consulting Physician Colon and Rectal Surgery 04/09/23
[2024-12-15 13:00] VITALS: BP 129/60; PULSE 91; RESP 16; TEMP 36.2; O2SAT 99
[2024-12-15] MEDS: LACTATED RINGERS 1,000 ML 30 ML IV CONT (13:00)
--- NOTE | 2024-12-15 13:36 | PM.IMHP ---
H&P: HPI History of Present Illness Date/Time: 12/15/24 13:36 <Andrew Talavera DO - Last Filed: 12/15/24 13:44> Chief Complaint: Metastatic colon adenocarcinoma <Andrew Talavera DO - Last Filed: 12/15/24 13:44> Narrative: 64 yo f with a recent diagnosis of metastatic liver adenocarcinoma with mets to the liver who presents to the hospital today for a port a cath placement. She was seen on 11/28 and referred to medical oncology. She has neverhad a port a cath in the past. She denies previous neck surgeries or radiation. <Andrew Talaevra DO - Last Filed: 12/15/24 13:44> 64 yo f with a recent diagnosis of metastatic colorectal adenocarcinoma with mets to the liver who presents to the hospital today for a port a cath placement. She was seen on 11/28 and referred to medical oncology. She has neverhad a port a cath in the past. She denies previous neck surgeries or radiation. <Manuel Parekh MD - Last Filed: 12/15/24 14:00> Review of Systems Review of Systems: All systems reviewed & are unremarkable except as noted in HPI and below <Andrew Talavera DO - Last Filed: 12/15/24 13:44> [facility] Past Medical History Medical History: Medical History Colon cancer Smoker Abnormal CT scan, colon Nausea and vomiting in adult Weight loss Rectal bleeding COPD (chronic obstructive pulmonary disease) Asthma <Andrew Talavera DO - Last Filed: 12/15/24 13:44> Family History Family History: Family History Father Asthma Diabetes mellitus Hypertension Heart disease Cerebrovascular accident <Andrew Talavera DO - Last Filed: 12/15/24 13:44> Social History Social History: Social History Smoking packs per day: 0.5 Smoking cigarettes per day: 10.0 Years smoked: 50 Smoking pack-years: 25.00 Smoking status: Current every day smoker Tobacco type: cigarettes Alcohol intake: former Alcohol use details: NONE in two years Substance use: current Substance use type: marijuana and painkillers Other substance usage details: smoke it every other day and takes Tramadol often for knee pain Last use: 2 days ago Living arrangements: with family Additional living arrangements comments: Fiance Spiritual care concerns: No <Andrew Talavera DO - Last Filed: 12/15/24 13:44> Meds Home Medications and Allergies Home medications: Home Medications ?Medication ?Instructions ?Recorded ?Confirmed ?Type albuterol sulfate 90 mcg/actuation 1 inh inhalation Q4-6H PRN 11/12/24 12/10/24 History breath activated powder inhaler shortness of breath or wheezing famotidine 20 mg tablet 20 mg PO DAILY 11/12/24 12/10/24 History fluticasone propionate 50 1 spray intranasal DAILY 11/12/24 12/10/24 History mcg/actuation nasal spray,suspension lisinopril 40 mg tablet 40 mg PO DAILY 11/12/24 12/10/24 History meclizine 25 mg tablet 25 mg PO TID 11/12/24 12/10/24 History nitroglycerin 0.4 mg sublingual 0.4 mg sublingual Q5M PRN chest 11/12/24 12/10/24 History tablet pain simvastatin 5 mg tablet 5 mg PO DAILY 11/12/24 12/10/24 History tramadol 50 mg tablet 50 mg PO Q6H PRN pain 11/12/24 12/10/24 History atenolol 50 mg tablet 50 mg PO DAILY 11/18/24 12/10/24 History gabapentin 600 mg tablet 600 mg PO Q8H 12/10/24 12/10/24 History umeclidinium 62.5 mcg-vilanterol 1 inh inhalation Q24H 12/10/24 12/10/24 History 25 mcg/actuation powdr for inhalation (Anoro Ellipta) dicyclomine 20 mg tablet See Rx Instructions .Route 12/15/24 Rx .COMPLEX #90 tabs <Andrew Talavera, DO - Last Filed: 12/15/24 13:44> Allergies/Adverse reactions: Allergies Allergy/AdvReac Type Severity Reaction Status Date / Time No Known Allergies Allergy Verified 12/10/24 09:18 <Andrew Talavera DO - Last Filed: 12/15/24 13:44> Exam Narrative: General: Awake, alert, NAD HEENT: NCAT, mucous membranes pink and moist Neck: No masses or swelling, no JVD Heart: RR, HDS Lungs: Symmetric expansion, no IWOB, on RA Abdomen: soft, NTTP, ND, nonperitoneal Extremities: Moves all, normal inspection Psych: Normal affect, normal mood, normal judgment <Andrew Talavera, DO - Last Filed: 12/15/24 13:44> Assessment and Plan Assessment and plan (1) Rectal bleeding: Code(s): K62.5 - Hemorrhage of anus and rectum <Andrew LeelaGoldie Talavera, DO - Last Filed: 12/15/24 13:44> Status: Acute <Andrew Talavera, DO - Last Filed: 12/15/24 13:44> Assessment and Plan: recent diagnosis of colon cancer <Andrew LeelaGoldie Talavera, DO - Last Filed: 12/15/24 13:44> (2) Colon cancer: Code(s): C18.9 - Malignant neoplasm of colon, unspecified <Andrew LeelaGoldie Talavera, DO - Last Filed: 12/15/24 13:44> Status: Acute <Andrew Talavera, DO - Last Filed: 12/15/24 13:44> Assessment and Plan: I discussed the risks, benefits, and alternatives of proceeding with port a cath placement for her recent diagnosis of metastatic colon adenocarcinoma with mets to the liver. She has never had a port a cath, no prior neck surgeries or radiation. She expressed understanding and wishes to proceed with port a cath placement. All questions were answered. - Proceed with port a cath placement today - Discharge home postoperatively - Follow up with oncology - No follow up with general surgery needed, follow up PRN A&P discussed with Dr. Parekh <Andrew LeelaGoldie Talavera, DO - Last Filed: 12/15/24 13:44> I discussed the risks, benefits, and alternatives of proceeding with port a cath placement for her recent diagnosis of metastatic colon adenocarcinoma with mets to the liver. She has never had a port a cath, no prior neck surgeries or radiation. She expressed understanding and wishes to proceed with port a cath placement. All questions were answered. Specific risk of iatrogenic pneumothorax and need for chest tube and bleeding with need for blood transfusion was discussed. She agrees to proceed. - Proceed with port a cath placement today - Discharge home postoperatively - Follow up with oncology - No follow up with general surgery needed, follow up PRN A&P discussed with Dr. Parekh <Manuel Parekh MD - Last Filed: 12/15/24 14:00> (3) Metastasis to liver: Code(s): C78.7 - Secondary malignant neoplasm of liver and intrahepatic bile duct <Andrew Talavera DO - Last Filed: 12/15/24 13:44> Status: Acute <Andrew Talavera DO - Last Filed: 12/15/24 13:44> Assessment and Plan: recent diagnosis of metastatic colon adenocarcinoma <Andrew Talavera DO - Last Filed: 12/15/24 13:44>
--- NOTE | 2024-12-15 13:59 | WPDANESEPPF ---
Anes - Initial Pre Proc Eval Procedure: Operation Date: 12/15/24 14:00 Proposed Procedures p Insertion Marissa Cath - Manuel Parekh MD Date/Time: 12/15/24 13:59 Surgeon: Manuel Parekh MD Pre Op Diagnosis: Malignant Neoplasm of Sigmoid Colon Patient Data Age: 64 Gender: F Height: 1.6 m Weight: 58 kg Allergies Allergy/AdvReac Type Severity Reaction Status Date / Time No Known Allergies Allergy Verified 12/10/24 09:18 Home Medications ?Medication ?Instructions ?Recorded ?Confirmed ?Type albuterol sulfate 90 mcg/actuation 1 inh inhalation Q4-6H PRN 11/12/24 12/10/24 History breath activated powder inhaler shortness of breath or wheezing famotidine 20 mg tablet 20 mg PO DAILY 11/12/24 12/10/24 History fluticasone propionate 50 1 spray intranasal DAILY 11/12/24 12/10/24 History mcg/actuation nasal spray,suspension lisinopril 40 mg tablet 40 mg PO DAILY 11/12/24 12/10/24 History meclizine 25 mg tablet 25 mg PO TID 11/12/24 12/10/24 History nitroglycerin 0.4 mg sublingual 0.4 mg sublingual Q5M PRN chest 11/12/24 12/10/24 History tablet pain simvastatin 5 mg tablet 5 mg PO DAILY 11/12/24 12/10/24 History tramadol 50 mg tablet 50 mg PO Q6H PRN pain 11/12/24 12/10/24 History atenolol 50 mg tablet 50 mg PO DAILY 11/18/24 12/10/24 History gabapentin 600 mg tablet 600 mg PO Q8H 12/10/24 12/10/24 History umeclidinium 62.5 mcg-vilanterol 1 inh inhalation Q24H 12/10/24 12/10/24 History 25 mcg/actuation powdr for inhalation (Anoro Ellipta) dicyclomine 20 mg tablet See Rx Instructions .Route 12/15/24 Rx .COMPLEX #90 tabs Patient hx anesthesia problems: none Family hx anesthesia problems: none Results Review: All pre-operative results and documents have been reviewed as part of the pre-operative evaluation. [facility] Past Medical History Medical History Colon cancer Smoker Abnormal CT scan, colon Nausea and vomiting in adult Weight loss Rectal bleeding COPD (chronic obstructive pulmonary disease) Asthma Family History Family History Father Asthma Diabetes mellitus Hypertension Heart disease Cerebrovascular accident Social History Social History Smoking packs per day: 0.5 Smoking cigarettes per day: 10.0 Years smoked: 50 Smoking pack-years: 25.00 Smoking status: Current every day smoker Tobacco type: cigarettes Alcohol intake: former Alcohol use details: NONE in two years Substance use: current Substance use type: marijuana and painkillers Other substance usage details: smoke it every other day and takes Tramadol often for knee pain Last use: 2 days ago Living arrangements: with family Additional living arrangements comments: Chris Spiritual care concerns: No Anes - Eval Final PreProcedure Day of Procedure 12/15/24 13:59 Patient weight: normal Lungs: normal air movement Airway: Mallampati scale class II and special considerations (Missing upper teeth, L lower post tooth is loose/damaged. ) Neurological: alert and oriented Last oral intake: >/= 8 hours ASA classification: III Emergent: no Anesthetic plan: proceed Anesthesia type and monitoring: general GIVS and standard monitoring Results Review: All pre-operative results and documents have been reviewed as part of the pre-operative evaluation. Active smoker, 1 ppd and did smoke this am, HTN, hyperlipidemia, recent dx of rectal/colon ca, w mets. Informed Consent: The patient's anesthetic plan and its attendant risks and benefits were discussed with the patient/family/POA. Questions were solicited and answers provided to the satisfaction of the patient/family/POA.
--- NOTE | 2024-12-15 14:01 | WPDHPUPDATE1 ---
History and Physical Update Update Date/Time: 12/15/24 14:01 History and Physical has been reviewed, including an updated exam of the patient. There are NO changes in the patient's condition. Risks, benefits, and alternatives have been discussed and questions answered. Patient agrees to proceed with procedure.
[2024-12-15] MEDS: ceFAZolin 2 GM in SODIUM CHLORIDE 0.9% IV 50 ML 100 ML IVPB (14:19)
[2024-12-15 15:20] VITALS: BP 97/53; PULSE 89; RESP 20; O2SAT 100
--- NOTE | 2024-12-15 15:24 | W.PM.PROC2 ---
Procedure Note - Detailed Date of Procedure 12/15/24 Pre-op Diagnosis Malignant Neoplasm of rectum with liver metastasis. Post-op Diagnosis Same Procedure Performed Placement of right internal jugular vein single-lumen port a catheter with intraoperative fluoroscopy and ultrasound guidance. Surgeon Manuel Parekh MD Quality Assurance Supervisor Chassis Andrew Talavera D.O. Anesthesia MAC Indications Patient is a 64-year-old female who was recently diagnosed with rectal cancer. Unfortunate she has evidence of metastatic disease in her liver. She is to undergo neoadjuvant chemotherapy treatments for of end-stage rectal cancer. She presents today for placement of cindi catheter. Findings None significant Description of Procedure After informed consent was obtained patient brought to the operating room she was placed supine position and IV sedation was administered by anesthesia. The bilateral upper anterior neck and chest was then prepped and draped usual sterile fashion. Time-out was then performed correctly identifying the patient as well as procedure to be performed. She was given some perioperative IV antibiotics. First started by approaching placement of the catheter via the right internal jugular vein. 1% lidocaine mixed with 0.5% Marcaine was injected between the 2 heads of the right sternocleidomastoid muscle. Then with patient in the head-down Trendelenburg position a small incision was made in the right anterior neck and then a long 18gauge spinal needle was used to cannulate the right internal jugular vein under real-time ultrasonographic guidance. There was dark venous appearing blood returned into the syringe and then a guidewire was advanced into the needle into the right internal jugular vein subsequent down into the right atrium of the heart. The needle was removed and then the guidewire was secured. Intraoperative fluoroscopy was then used to confirm that the guidewire was in the proper position in the right atrium of the heart. We then proceeded to inject right below the medial 3rd of the right clavicle in the right upper anterior chest wall. A transverse incision was then made in this area with a scalpel and then dissection was carried down through the subcutaneous tissue electrocautery. Once we reached anterior pectoralis fascia on the right anterior chest we then created the subcutaneous port pocket inferior to the incision with electrocautery and blunt finger dissection. We then proceeded to tunnel the single-lumen 9.6 [place] silastic catheter from the incision on the right upper anterior chest wall to the neck incision. We then proceeded to advanced a dilator and breakaway sheath over the guidewire and then the guidewire and dilator were removed leaving the sheath in place. The tip of the catheter was advanced through the sheath and the sheath was torn away. Intraoperative fluoroscopy was then used to visualize the tip of the catheter which was in the right atrium of the heart. Then with traction on the catheter externals the chest wall the tip of the catheter was pulled back until it was in the distal superior vena cava. The catheter was then cut to the appropriate length at the skin level and attached to the titanium Smart Port. The port was then secured the subcutaneous port pocket on 3 sides with a 3-0 Prolene suture. The port was then accessed and aspirated blood easily and was flushed with heparinized saline solution. We then irrigated out the incision sterile saline solution hemostasis was good. We then closed the incision utilizing interrupted 3-0 Vicryl sutures in subcutaneous tissues. The skin edges were then approximated lies in a running subcuticular 4 Monocryl suture. The small right anterior neck incision was then closed with a 4-0 Monocryl suture in a subcuticular fashion as well. Both incisions were then covered with skin glue. Lastly the port was accessed percutaneously with a Murphy needle and again it aspirated blood easily and was flushed with 5000units of IV heparin. The patient tolerated the procedure well no complications. All sponges, needles, and instrument counts were correct at the end procedure. EBL was _10__cc. The patient was awakened and taken to recovery in stable and satisfactory condition. Implants 9.6 [place] silastic catheter single-lumen attached to titanium Smart Port placed via right internal jugular vein into the superior vena cava. Estimated Blood Loss 10 Drains No Packing No Pathology None sent Complications No immediate complications Condition Stable Disposition PACU [facility] Billing Surgery - Charge Forward: Surgery Billing
[2024-12-15 15:35] VITALS: PULSE 68; RESP 20
[2024-12-15] MEDS: ALBUTEROL SULFATE NEB 2.5 MG/3 ML INH INHALATION (15:35)
[2024-12-15 15:42] VITALS: PULSE 67; RESP 20
[2024-12-15 15:50] VITALS: BP 105/54; PULSE 80; RESP 16; O2SAT 98
[2024-12-15 16:15] VITALS: BP 119/83; PULSE 86; RESP 18; O2SAT 97
== END 2024-12-15 16:25 | disposition home or self-care (01) ==
PROVIDERS: PCP Physician Assistant; Visit Provider Surgery
PROC: (CPT 36561; principal; 2024-12-15 14:00)
DX: C18.9 Malignant neoplasm of colon, unspecified (principal); C78.7 Secondary malignant neoplasm of liver and intrahepatic bile duct; I10 Essential (primary) hypertension; E78.5 Hyperlipidemia, unspecified; J44.9 Chronic obstructive pulmonary disease, unspecified; F17.210 Nicotine dependence, cigarettes, uncomplicated; F12.90 Cannabis use, unspecified, uncomplicated; Z79.51 Long term (current) use of inhaled steroids; Z79.891 Long term (current) use of opiate analgesic; Z82.49 Family history of ischemic heart disease and other diseases of the circulatory system
CPT/HCPCS: 36561; 77001; 94640; J0690; C1788; J1644; J2003; J2250; J2405; J2704; J3010; J7030; J7120

== ENCOUNTER 2025-02-04 11:51 | Inpatient (IN) | payer MEDICARE, MEDICAID, SELFPAY ==
--- OUTSIDE RECORDS SUMMARY | 2025-01-19 09:15 | XMS_ITS | Encounter Summary ---
Author Organization [facility] [employer] Address [address] [place] [address] Care Team Providers Care Director Call Center Sales Name Role Phone Unavailable Primary Care Provider Unavailabl e Reason for Visit * Reason Comments Chemotherapy Follow Up Encounter Details Date Type Department Care Team (Late st Contact Info) Description 01/19/2025 9:15 AM [employer]INE [employer] O[employer] Office Visit [facility] Oncology and Hematology - [place] [address] [facility] [address] [place] [address] Manuel Godinez MD [address] [facility] [address] [place] [address] Prophylaxis for chemotherapy-induced neutropenia (Primary Dx); Malignant neoplasm of sigmoid colon (CMS/HCC) Social History Tobacco Use Types Packs/Day Years Used Date Smoking Tobacco: Former Cigarettes 1 40 1 - 11/19/2024 Smokeless Tobacco: Never Tobacco Cessation:Counseling Given: Not Answered Alcohol Use Standard Drinks/Week Comments Not Currently 0 (1 standard drink = 0.6 oz pur e alcohol) Comments Unknown Sex and Gender Information Value Date Recorded Sex Assigned at Not on file Legal Sex Female 9:54 AM CDT Gender Identity Not on file Sexual Orientation Not on file documented as of this encounter Last Filed Vital Signs Vital Sign Reading Time Taken Comments Blood Pressure 101/86 01/19/2025 8:45 AM [employer] Pulse 118 01/19/2025 8:45 AM [employer]INE [employer] OPERATOR Temperature 36.2 C (97.1 F) 01/19/2025 8:45 AM [employer]INE [employer] OPERATOR Respiratory Rate 16 01/19/2025 8:45 AM [employer]INE [employer] OPERATOR Oxygen Saturation 90% 01/19/2025 8:45 AM [employer] OPER[employer] Inhaled Oxygen Concentration - - Weight 53.8 kg (118 lb 9.6 oz) 01/19/2025 8:45 A M [employer] Height - - Body Mass Index 21.01 11/28/2024 11:31 AM CDT documented in this encounter Progress Notes * Manuel Godinez MD - 01/19/2025 9:06 AM CST HEMATOLOGY / ONCOLOGY PROGRESS NOTE Patient Identification: Name: Vianca West Age: 64 y.o. Sex: female : 1960 DIAGNOSIS Metastatic colon cancer status post colonoscopy and biopsy done on November 19, 2024. CURRENT TREATMENT Palliative chemotherapy with FOLFOX Avastin cycle 1 started December 22, 2024. TREATMENT HISTORY SUBJECTIVE Patient came to the office for follow-up visit and continuation of chemotherapy. She is been complaining of tiredness and fatigue with poor appetite and 10 pound weight loss. Denies any diarrhea. Denies any neuropathy. No other new complaints. Review of system Constitutional: Patient did not mention fevers, sweats, complain of tiredness and fatigue and 10 pound weight loss HEENT: Patient did not mention sinus congestion, hearing or vision problems Respiratory: Patient did not mention cough, dyspnea, wheeze Cardiovascular: Patient did not mention chest pain, exertional chest pressure/discomfort, nausea, syncope, shortness of breath GI: Patient did not mention constipation, diarrhea, dsyphagia, reflux symptoms, vomiting, melena : Patient did not mention dysuria, frequency, incontinence, urgency Integumentary system: no lymphadenopathy, sweats, flushing Musculoskeletal: Patient not mention: myalgia, arthralgia Neurological: Patient did not mention blurry or disturbed vision, numbness/weakness, dizziness Skin: No lumps, bumps or rashes. 12 point review of system was reviewed Objective: Vital signs in last 24 hours: As per nursing note Exam: HEENT: Atraumatic, external ears normal, nose normal, oropharynx moist, no pharyngeal exudates. no sinus tenderness Neck- normal range of motion, no tenderness, supple Respiratory: No respiratory distress, normal breath sounds, no rales, no wheezing Cardiovascular: Normal rate, normal rhythm, no murmurs, no gallops, no rubs GI: Soft, nondistended, normal bowel sounds, nontender, no splenomegaly, no hepatomegaly, no mass, no rebound, no guarding : No costovertebral angle tenderness Musculoskeletal: No edema, no tenderness, no deformities. Back- no tenderness Integument: Well hydrated, no rash, Digits and nails inspection normal Lymphatic: No lymphadenopathy noted Neurologic: Alert & oriented x 3, CN 2-12 normal, normal motor function, normal sensory function, no focal deficits noted Exam as above PATH LABS Labs from January 19 showed WBC 13.3 hemoglobin 9.7 platelet 400,000 creatinine 0.9 @IMAGEIMP@ Assessment: Plan: There are no active problems to display for this patient. Metastatic colon cancer status post colonoscopy and biopsy done on November 19, 2024. PET scan done on December 09, 2024 showed wall thickening of the rectosigmoid with increased activity consistent with primary malignancy along with perirectal lymphadenopathy and liver masses. There are 4 masses in the liver with increased activity. Patient started palliative chemotherapy with FOLFOX Avastin cycle 1 on December 22, 2024. Patient is tolerating chemotherapy with tiredness and fatigue and 10 pound weight loss with poor appetite. Labs showed anemia. She like to proceed with chemotherapy today. Will reduce the dose of chemotherapy by 10% due to anemia. Follow-up with me in 2 weeks. Anemia secondary to chemotherapy. Will start iron and vitamin B12 supplement as well. Chemotherapy dose will be reduced by 10%. Hypertension. Stable. Abdominal pain. Stable on tramadol as needed. Chemotherapy-induced neutropenia prophylaxis. Will start Neupogen biosimilar. follow-up in 2 weeks 01/19/2025 Manuel Godinez MD [employer]INE [employer] OPERATOR RINE [employer] OPERATOR documented in this encounter Plan of Treatment Upcoming Encounters Date Type Department Care Team (Late st Contact Info) Description 02/09/2025 9:30 AM [employer]INE PL[employer] OPERATOR Office Visit [facility] Oncology and Hematology - [place] Gary Barbosa [address] [place] [id number] Sue Machado MD [address] [place] [id number] Scheduled Orders Name Type Priority Associated Diagnoses Orde r Schedule BASIC METABOLIC PANEL Lab Stat Malignant neoplasm of sigmoid colon (CMS/HCC) Expected: 02/09/2025, Expires: 01/19/2026 CBC WITH DIFFERENTIAL Lab Stat Malignant neoplasm of sigmoid colon (CMS/HCC) Expected: 02/09/2025, Expires: 01/19/2026 [facility] Lab Routine Malignant neoplasm of sigmoid colon (CMS/HCC) Expected: 02/09/2025, Expires: 01/19/2026 documented as of this encounter Visit Diagnoses Diagnosis Prophylaxis for chemotherapy-induced neutropenia- Primary Malignant neoplasm of sigmoid colon (CMS/HCC) Malignant neoplasm of sigmoid colon documented in this encounter
[2025-02-04] VITALS (10 sets, daily range): BP systolic 91–112; BP diastolic 45–62; PULSE 82–121; RESP 18–24; TEMP 36.4–36.6; O2SAT 100; BMI 22.2
--- NOTE | ~2025-02-04 | XR_ITS ---
EXAMINATION: XR chest 1V portable 02/09/2025 15:22 INDICATION: Evaluate for pneumonia PROCEDURE: AP portable chest COMPARISON: 12/15/2024 FINDINGS: The lungs are clear. The cardiomediastinal silhouette is within normal limits. There are no pleural effusions. There is no pneumothorax suspected. Portacatheter tip in the SVC. Heart size normal. No focal air space disease, pulmonary edema, pleural effusion or suspected pneumothorax. IMPRESSION: 1: NO ACUTE CARDIOPULMONARY DISEASE. Reviewed, dictated and finalized at location O. DRESSER
--- NOTE | ~2025-02-04 | CT_ITS ---
EXAM/PROCEDURE: CT abdomen pelvis w con HISTORY: diffuse abd pain, worsening weakness, hx of met ca COMPARISON: November 07, 2024 TECHNIQUE: IV contrast enhanced CT of the abdomen pel FINDINGS: The bowel gas pattern is nonobstructive with no free air or pneumatosis. Trace amount of free fluid present in the lower pelvis similar to slightly decreased compared to the previous study. Fluid-filled distal small bowel and fluid fills the right hemicolon. Distal sigmoidal wall thickening not clearly changed, although adjacent infiltrative changes are decreased, and a previously described 1.8 x 1.3 cm lymph node measures 1.3 x 0.8 cm on today's exam. Several liver masses are again noted consistent with metastatic disease. Left lobe liver mass measures 4.4 cm, compared to 4.8 cm on the previous exam. Right lobe mass image 44 series 3 measures 3.1 cm, compared to 3.3 centers on the previous exam. Other lesions also appear slightly smaller. No hydroureteronephrosis or gross CT evidence of acute cholecystitis or pancreatitis. No grossly inflamed appendix. Uterus and adnexal regions appear stable. Lung bases clear. Heart size normal. Small pericardial effusion. The greatest AP dimension of the effusion is 9 mm. IMPRESSION: 1. No acute surgical abnormality identified. Fluid in the small and large bowel may represent inflammatory or infectious enteritis with diarrhea process. 2. Slight decreased size of liver masses and perirectal lymphadenopathy suggesting some positive response to treatment. 3. Small pericardial effusion on today's exam. Reviewed, dictated and finalized at location A. PHONE SURVEYOR IMPRESSION: 1. No acute surgical abnormality identified. Fluid in the small and large bowel may represent inflammatory or infectious enteritis with diarrhea process. 2. Slight decreased size of liver masses and perirectal lymphadenopathy suggest ing some positive response to treatment. 3. Small pericardial effusion on today's exam.
--- NOTE | 2025-02-04 12:02 | ECG_ITS ---
Test Date: 2025-02-04 12:42:16 Measurements Intervals [place] Rate: 120 P: 78 AL: 146 QRS: 46 QRSD: 86 T: 70 QT: 427 QTc: 605 Interpretive Statements SINUS TACHYCARDIA WITH FREQUENT VENTRICULAR PREMATURE COMPLEXES NONSPECIFIC ST & T-WAVE ABNORMALITY- DIFFUSE LEADS BASELINE ARTIFACT- I, II, III, AVR, AVL, AVF ABNORMAL ECG No previous ECG available for comparison Electronically Signed On 02-04-2025 12:46:14 MARKETING MANAGER by Miguel Aguayo D.O.
--- NOTE | 2025-02-04 12:13 | ED.WEAKNESS ---
HPI - Weakness General Chief complaint: Weakness Stated complaint: weak, dark stools Time Seen by Provider: 02/04/25 12:01 Source: patient Mode of arrival: EMS Limitations: no limitations History of Present Illness HPI Narrative: This is a 64-year-old female with history of colon cancer with metastases to liver, COPD who presents to the ED for weakness. Patient states that over the past few days, she has been feeling slightly more weak. She last chemotherapy last week and will well as far she knows. She has gotten shots for her low white blood cells this week and was scheduled for another 1 today but felt too weak to get out of bed prompting her to call EMS. She has been having black tarry stools over the last week. She has never required a blood transfusion. Denies chest pain, shortness of breath, abdominal pain, nausea vomiting. Related Data Home Medications ?Medication ?Instructions ?Recorded ?Confirmed ?Last Taken ?Type albuterol sulfate 90 mcg/actuation 1 inh inhalation Q4-6H PRN 11/12/24 02/04/25 02/02/25 18:25 History breath activated powder inhaler shortness of breath or wheezing famotidine 20 mg tablet 20 mg PO DAILY 11/12/24 02/04/25 02/02/25 History fluticasone propionate 50 1 spray intranasal DAILY 11/12/24 02/04/25 02/03/25 08:27 History mcg/actuation nasal spray,suspension lisinopril 40 mg tablet 40 mg PO DAILY 11/12/24 02/04/25 02/03/25 08:27 History meclizine 25 mg tablet 25 mg PO TID 11/12/24 02/04/25 02/03/25 20:27 History nitroglycerin 0.4 mg sublingual 0.4 mg sublingual Q5M PRN chest 11/12/24 02/04/25 06/19/24 History tablet pain simvastatin 5 mg tablet 5 mg PO DAILY 11/12/24 02/04/25 02/03/25 20:28 History tramadol 50 mg tablet 50 mg PO Q6H PRN pain 11/12/24 02/04/25 02/03/25 20:28 History atenolol 50 mg tablet 50 mg PO DAILY 11/18/24 02/04/25 02/03/25 08:26 History gabapentin 600 mg tablet 600 mg PO Q8H 12/10/24 02/04/25 02/03/25 19:27 History umeclidinium 62.5 mcg-vilanterol 1 inh inhalation Q24H 12/10/24 02/04/25 02/03/25 08:28 History 25 mcg/actuation powdr for inhalation (Anoro Ellipta) alprazolam 0.5 mg tablet (Xanax) 0.25 mg PO TID 12/19/24 02/04/25 Unknown History Allergies Allergy/AdvReac Type Severity Reaction Status Date / Time No Known Allergies Allergy Verified 02/04/25 17:35 Review of Systems Review of Systems: Gen.: Denies fevers or chills Eyes: Denies eye pain or visual change ENT: Denies congestion Respiratory: Denies shortness of breath or cough CV: Denies chest pain or palpitations GI: Denies abdominal pain nausea, emesis or diarrhea denies burning, urgency, frequency or hematuria Musculoskeletal: Denies back pain or muscle pain Neuro: As per HPI Skin: Denies rash Except as documented, all other systems reviewed and negative [facility] Past Medical History Medical History COPD (chronic obstructive pulmonary disease) Asthma Hypertension HLD (hyperlipidemia) Chemotherapy induced neutropenia Colon cancer Smoker Nausea and vomiting in adult Weight loss Rectal bleeding Family History Family History Father Asthma Diabetes mellitus Hypertension Heart disease Cerebrovascular accident Social History Social History Smoking packs per day: 1 Smoking cigarettes per day: 20.0 Years smoked: 40 Smoking pack-years: 40.00 Smoking status: Former smoker Tobacco type: cigarettes Smoking end date: 11/19/24 Alcohol intake: never Alcohol use details: NONE in two years Substance use: never Substance use type: does not use Other substance usage details: smoke it every other day and takes Tramadol often for knee pain Last use: 2 days ago Lack of Transportation: No Lack of Food: Never True Current Housing: I Have Housing Concerned About Future Housing: No Difficulty Paying Gas/Electric Bills: No Difficulty Paying for Meds: No Currently Unemployed: No Education: High School Diploma/GED Difficulty w/ Childcare or Family Care: No Living arrangements: with family Additional living arrangements comments: Fiance Spiritual care concerns: No Exam Narrative: APPEARANCE: No acute distress, nontoxic, resting in bed EYES: EOMI, conjunctival pallor HEENT: Normocephalic, atraumatic, mucosal pallor RESPIRATORY: No respiratory distress Clear to auscultation bilaterally with no rhonchi wheezing or rales. CARDIOVASCULAR: Tachycardic with regular rhythm without murmurs rubs or gallops. ABDOMINAL: Soft, mild diffuse tenderness to palpation, nondistended, no rebound or guarding MUSCULOSKELETAl: Moves all extremities. No clubbing, cyanosis or edema. NEURO: Awake and alert. Following commands, speech normal, no focal deficits SKIN:: Warm, dry. No rashes lesions or abrasions PSYCHIATRIC: Normal affect/mood, Course Vital Signs Vital signs: Vital Signs Temperature 97.9 F 02/04/25 11:58 Pulse Rate 121 H 02/04/25 11:58 Respiratory Rate 20 02/04/25 11:58 Blood Pressure 93/62 L 02/04/25 11:58 Pulse Oximetry 100 02/04/25 11:58 Oxygen Delivery Room Air 02/04/25 11:58 Temperature 97.9 F 02/04/25 18:38 Pulse Rate 82 02/04/25 18:38 Respiratory Rate 18 02/04/25 18:38 Blood Pressure 112/57 L 02/04/25 18:38 Pulse Oximetry 100 02/04/25 18:38 Oxygen Delivery Room Air 02/04/25 11:58 [facility] Narrative Medical decision making narrative: 64-year-old female Presenting for weakness and black tarry stools. On initial evaluation patient was in no acute distress afebrile, hemodynamic stable. Patient noted to be requiring injections for low white blood cells so she was immediately placed in neutropenic precautions. Differentials include but are not limited to: Anemia, electrolyte abnormality, arrhythmia, cancer, constipation, obstruction Notable exam findings: Mucosal pallor and conjunctival pallor, no abdominal tenderness palpation. Tachycardic. I personally reviewed the patient's lab result. Notable lab findings: Anemic with hemoglobin 7.3. Leukopenia to 2.2. Hypokalemic at 2.7, hyponatremic at 1:[address] abdomen/pelvis showed no acute process, noted small pericardial effusion I personally reviewed the patient's EKGs: Sinus tachycardia rate of 120, normal axis, QT 427, no acute ST or T-wave changes Attempted to send patient but she was only able to stand for about 3 seconds before she felt too weak to stand anymore. Patient remains significantly weak, as she was only able to stand for a few seconds the. Hemoglobin does appear to be trending down over the last couple weeks, may be a side effect from her chemotherapy, may also be due to her your colon cancer. I discussed the case with hospitalist, did recommend transfusing 1 unit PRBCs this time given her soft pressures and tachycardia. Also recommended discussing with GI for potential endoscopy if needed. Discussed case with Dr. Guerrero, GI, will reevaluate the patient, but given melena, suspects upper GI bleed, will plan for potential EGD. Differential Diagnosis Differential Diagnosis: Anemia, electrolyte abnormality, arrhythmia, cancer, constipation, obstruction Lab Data 02/04/25 12:23 02/04/25 12:23 Labs: Lab Results 02/04/25 Range/Units 12:23 WBC 2.2 L (4.5-10.0) K/mm3 RBC 2.63 L (4.2-5.4) M/mm3 Hgb 7.3 L (12.0-15.0) g/dL Hct 23.0 L (37.0-47.0) % MCV 87.5 (80-100) fl MCH 27.8 (26-34) pg MCHC 31.7 L (32-36) g/dl RDW 15.2 H (11.5-14.5) % Plt Count 224 D (150-375) k/mm3 MPV 10.1 (7.4-10.4) fl Immature Gran % (Auto) Not Reportable Neut % (Auto) Not Reportable Lymph % (Auto) Not Reportable [place] % (Auto) Not Reportable Eos % (Auto) Not Reportable Baso % (Auto) Not Reportable Lymph # (Auto) Not Reportable [place] # (Auto) Not Reportable Eos # (Auto) Not Reportable Baso # (Auto) Not Reportable Abs Immat Gran (auto) Not Reportable Absolute Neuts (auto) Not Reportable Absolute Nucleated RBC Not Reportable Total Counted 100 Neutrophils % (Manual) 16 L (46-73) % Band Neutrophils % Not Reportable Lymphocytes % (Manual) 46 H (18-44) % Monocytes % (Manual) 38 H (3-9) % Nucleated RBC % Not Reportable Abs Lymphs (Manual) 1.01 L (1.1-4.5) K/mm3 Abs Monocytes (Manual) 0.83 (0.1-0.90) K/mm3 Smudge Cells Present Platelet Estimate Adequate (Adequate) Large Platelets Present % Immature Plt Fraction 4.5 (0.9-11.2) % Polychromasia Occasional Basophilic Stippling Occasional Anisocytosis 1+ Sinan Cells 1+ Schistocytes None seen Sodium 132 L (137-145) mmol/L Potassium 2.7 L* (3.4-5.0) mmol/L Chloride 104 (98-107) mmol/L Carbon Dioxide 22 (22-30) mmol/L Anion Gap 6 (4-12) mmol/L BUN 12 (7-17) mg/dL Creatinine 0.95 (0.7-1.0) mg/dL Estim Creat Clear Calc 43 ml/min Estimated GFR 59 (59 - ) Glucose 101 (65-110) mg/dL Calcium 8.0 L (8.4-10.2) mg/dL Total Bilirubin 0.5 (0.2-1.3) mg/dL AST 23 (14-36) U/L ALT 12 (6-35) U/L Alkaline Phosphatase 89 (38-126) U/L Troponin I 0.022 (0.000-0.034) ng/mL Total Protein 5.8 L (6.3-8.2) g/dL Albumin 2.9 L (3.5-5.1) g/dL Blood Type A Negative Antibody Screen Negative Crossmatch See Detail Imaging Data Radiologist's impression: ITS Impressions Abdomen/Pelvis CT 02/04/25 14:29 IMPRESSION: 1. No acute surgical abnormality identified. Fluid in the small and large bowel may represent inflammatory or infectious enteritis with diarrhea process. 2. Slight decreased size of liver masses and perirectal lymphadenopathy suggesting some positive response to treatment. 3. Small pericardial effusion on today's exam. Critical Care Time Critical Care Time Critical Care Time: Yes Indication: Severe anemia, colon cancer Time Type: Intermittent Initial evaluation, discuss w/ involved parties, attempting to gather old records: 10 minutes Documenting medical record: 5 minutes Review of results (EKG's, labs, imaging): 5 minutes Serial repeat bedside evaluation: 10 minutes Discussing case with multiple memebers of the care team and consultants: 10 minutes Total Critical Care Time: 40 Discharge Plan Discharge Clinical Impression: Rectal cancer, Metastasis to liver, Acute hyponatremia, Acute hypokalemia, Chemotherapy induced neutropenia, Melena Anemia Qualifiers: Anemia type: unspecified type Qualified Code(s): D64.9 - Anemia, unspecified Patient Disposition: Still a Patient Condition: Stable
[2025-02-04 12:30] LABS: Hematocrit 23.0 % (37.0-47.0); Hemoglobin 7.3 g/dL (12.0-15.0); Immature Platelet Fraction Pct 4.5 % (0.9-11.2); Mean Corpuscular HGB Conc 31.7 g/dl (32-36); Mean Corpuscular Hemoglobin 27.8 pg (26-34); Mean Corpuscular Volume 87.5 fl (80-100); Platelet Count Result 224 k/mm3 (150-375); Red Blood Count 2.63 M/mm3 (4.2-5.4); White Blood Count 2.2 K/mm3 (4.5-10.0)
[2025-02-04 12:41] LABS: Alanine Aminotransferase 12 U/L (6-35); Albumin Level 2.9 g/dL (3.5-5.1); Alkaline Phosphatase 89 U/L (38-126); Anion Gap 6 mmol/L (4-12); Aspartate Amino Transferase 23 U/L (14-36); Bilirubin,Total 0.5 mg/dL (0.2-1.3); Blood Urea Nitrogen 12 mg/dL (7-17); Calcium 8.0 mg/dL (8.4-10.2); Carbon Dioxide 22 mmol/L (22-30); Chloride 104 mmol/L (98-107); Estimated CRCL calculation 43 ml/min; Estimated Glomerular Filt Rate 59; Glucose 101 mg/dL (65-110); Potassium 2.7 mmol/L (3.4-5.0); Sodium 132 mmol/L (137-145); Total Protein 5.8 g/dL (6.3-8.2)
[2025-02-04 12:51] LABS: Troponin I 0.022 ng/mL (0.000-0.034)
[2025-02-04] MEDS: POTASSIUM CHLORIDE 20 MEQ ER TABLET 40 MEQ PO (12:53)
[2025-02-04] MEDS: KCL 40 MEQ/WATER 100 ML 100 ML 25 ML IVPB (13:10)
[2025-02-04 13:26] LABS: Lymphocytes Absolute Manual 1.01 K/mm3 (1.1-4.5); Lymphocytes Percent Manual 46 % (18-44); Monocytes Absolute Manual 0.83 K/mm3 (0.1-0.90); Monocytes Percent Manual 38 % (3-9); Neutrophils Percent Manual 16 % (46-73); Smudge Cells PRESENT; Total Cells Counted 100
[2025-02-04 13:27] LABS: Polychromasia Occasional
[2025-02-04 13:28] LABS: Anisocytosis 1+; Basophilic Stippling Occasional; Burr Cells 1+
[2025-02-04 13:29] LABS: Schistocytes None Seen
--- OUTSIDE RECORDS SUMMARY | 2025-02-04 14:55 | XMS_ITS | Clinical Summary ---
Author Organization [facility] Simone rivera Harindersaint alphonsus eaglemansoor Address [address] [place] [address] Care Team Providers Care Muffler Mechanic Name Role Phone Unavailable Primary Care Provider Unavailabl e Allergies No known active allergies Medications albuterol sulfate HFA 90 mcg/actuation aerosol inhaler INHALE 2 PUFFS BY MOUTH 3 TO 4 TIMES DAILY NEEDED Active ALPRAZolam (XANAX) 0.5 mg tablet Take 1 Tablet by mouth 3 times daily. 5 Active dicyclomine (BENTYL) 20 mg tablet Take 20 mg by mouth. 5 Active lisinopriL (PRINIVIL) 40 mg tablet Take 1 Tablet by mouth daily. 5 Active meclizine (ANTIVERT) 25 mg tablet Take [...] mg by mouth 2 times daily. Active lidocaine-prilo rinku (EMLA) 2.5-2.5 % CreamIndication s:Malignant neoplasm of sigmoid colon (CMS/HCC) Apply a quarter size amount to port site 30 minutes before access. 30 Gram 1 5 Active ondansetron (ZOFRAN ODT) 8 mg Tablet, Rapid DissolveIndicat ions:Malignant neoplasm of sigmoid colon (CMS/HCC) Dissolve 1 tablet on top of tongue then swallow with saliva every 8 hours as needed for nausea or vomiting 30 Tablet 1 5 Active potassium CHLORIDE (K-DUR,KLOR-CON M20) 20 mEq Extended Release tablet Take 1 Tablet (20 mEq) by mouth 2 times daily. 60 Tablet 1 5 Active Active Problems No known active problems Encounters Date Type Department Care Team Description 02/02/2025 Refill [facility] - [place] [address] [place] [id number] Manuel Godinez MD 02/02/2025 Orders Only [facility] - [place] [address] [place] [id number] Manuel Godinez MD Malignant neoplasm of sigmoid colon ([facility]/HCC) 01/21/2025 Orders Only [facility] - [place] [address] [place] [id number] Manuel Godinez MD 01/19/2025 9:15 AM [employer] Office Visit [facility] - [place] [address] [place] [address] Manuel Godinez MD Prophylaxis for chemotherapy-induce d neutropenia (Primary Dx); Malignant neoplasm of sigmoid colon (CMS/HCC) 01/06/2025 External Device Data STL ABSTRACTION Provider, Abstract 01/05/2025 Orders Only [facility] [place] [address] [place] [address] Manuel Godinez MD Malignant neoplasm of sigmoid colon ([facility]/HCC) 12/31/2024 Abstract [facility] [place] [address] [place] [address] Manuel Godinez MD 12/26/2024 Telephone [facility] - [place] [address] [place] [address] Manuel Godinez MD Decreased Appetite 12/24/2024 Orders Only [facility] Hematology [facility] [address] [place] [phone] Manuel Godinez MD 12/23/2024 Orders Only [facility] Hematology [facility] [address] [place] [address] Manuel Godinez MD Malignant neoplasm of sigmoid colon (CMS/HCC) (Primary Dx) 12/22/2024 Orders Only [facility] Hematology [facility] [address] [place] [address] Manuel Godinez MD Malignant neoplasm of sigmoid colon (CMS/HCC) (Primary Dx) 12/16/2024 4:30 PM CDT Telephone Check Up [facility] Oncology [facility] Hematology [facility] [address] [place] [address] Manuel Godinez MD 12/16/2024 Refill [facility] Hematology [facility] [address] [place] [address] Manuel Godinez MD Malignant neoplasm of sigmoid colon (CMS/HCC) (Primary Dx) 12/10/2024 Orders Only [facility] Hematology [facility] [address] [place] [phone] Manuel Godinez MD 12/09/2024 External Device Data STL ABSTRACTION Provider, Abstract 12/02/2024 External Device Data STL ABSTRACTION Provider, Abstract 12/02/2024 External Device Data STL ABSTRACTION Provider, Abstract 12/02/2024 External Device Data STL ABSTRACTION Provider, Abstract 12/01/2024 Orders Only [facility] Hematology [facility] [address] [place] [address] Manuel Godinez MD 11/29/2024 External Device Data STL ABSTRACTION Provider, Abstract 11/28/2024 11:45 AM CDT Office Visit [facility] On[facility] Hematology [facility] [address] [place] [address] Manuel Godinez MD Liver lesion (Primary Dx); [...] Comments Blood Pressure 101/86 01/19/2025 8:45 AM [employer] Pulse 118 01/19/2025 8:45 AM [employer] Temperature 36.2 C (97.1 F) 01/19/2025 8:45 AM [employer] Respiratory Rate 16 01/19/2025 8:45 AM [employer] Oxygen Saturation 90% 01/19/2025 8:45 AM [employer]AR Inhaled Oxygen Concentration - - Weight 53.8 kg (118 lb 9.6 oz) 01/19/2025 8:45 A M [employer] Height 160 cm (5' 3) 11/28/2024 11:31 AM CDT Body Mass Index 21.01 11/28/2024 11:31 AM CDT Plan of Treatment Upcoming Encounters Date Type Department Care Team (Late st Contact Info) Description 02/09/2025 9:30 AM [employer] Office Visit [facility] On[facility] and Hematology - [place] [address] [place] [address] Sue Machado MD [address] [place] [address] Health Maintenance Due Date Last Done Comments [...] OSTEOPOROSIS SCREENING 2024 INFLUENZA VACCINE (#1) 2024 COVID-19 Vaccine (2 - season) 10/20/202404/2020 COLORECTAL SCREENING Discontinued 11/19/2024 Colorectal Cancer Screening Discontinued FIT-DNA Q 3 years Discontinued FIT/FOBT Q 1 year Discontinued Flex Sig/CT Colonography Q 5 years Discontinued Procedures Procedure Name Priority Date/Time Associated Diagnosis Comments COMPREHENSIVE METABOLIC PANEL Routine 02/02/2025 12:43 PM [employer] CBC WITH AUTODIFFERENTIAL Routine 2024 12:00 PM [employer] COMPREHENSIVE METABOLIC PANEL Routine 12/22/2024 12:13 PM [employer] PET BONE IMG W CT SKL BSE MID THG Routine 12/09/2024 12:40 PM CDT COMPREHENSIVE METABOLIC PANEL Routine 11/28/2024 3:07 PM CDT COMPREHENSIVE METABOLIC PANEL Routine 11/28/2024 3:02 PM CDT from Last 3 Months Results * COMPREHENSIVE METABOLIC PANEL (02/02/2025 12:43 PM [employer]) Only the most recent of4 resultswithin the time period is included. Blood us Manuel Godinez MD CHEMISTRY ORDERABLES Final Resu lt * CBC WITH AUTODIFFERENTIAL (01/19/2025 12:00 PM [employer]) Blood us Manuel Godinez MD HEMATOLOGY ORDERABLES Final Res ult * PET BONE IMG W CT SKB MD (12/09/2024 12:40 PM CDT) Anatomical Region Laterality Modality Positron Emissio n Tomography (PET) us Manuel Godinez MD PE ORDERABLES Final Result from Last 3 Months Insurance MEDICARE PART A AND B [place]ID [place]
--- OUTSIDE RECORDS SUMMARY | 2025-02-04 14:55 | XMS_ITS | Clinical Summary ---
Author Organization [facility] Address [address] [place] [address] Phone Care Team Providers Care Calculus Teacher Name Role Phone Caleb Forman Primary Care Provider [phone] Mack Orellana MD Unavailable Allergies No known [...] Date Smoking Tobacco: Every Day Cigarettes 0.9 55 Started: 1971 Smokeless Tobacco: Never Tobacco Cessation:Ready [...] complete this topic Human Papillomavirus (HPV) Immunization (No Doses Required) Completed Meningococcal Immunization (ACWY) Aged Out No longer [...] optimization technique for this examination. Caleb Forman [facility] ORDERABLES Final Resul t from Last 3 Months or Most Recently Relevant to Health Maintenance Insurance MEDICARE [place]ID [place] Care Teams Calculus Teacher Relationship Specialty Start Date End Date Caleb Forman [facility] [address] [place] [id number] PCP - General Physician Sheep Sticker 06/14/15 Mack Orellana MD [id number] [address] Consulting Physician Colon and Rectal Surgery 04/09/23
--- OUTSIDE RECORDS SUMMARY | 2025-02-04 14:56 | XMS_ITS | Encounter Summary ---
Author Organization [facility] [employer] Address [address] [place] [address] Care Team Providers Care Annual Giving Officer Name Role Phone Unavailable Primary Care Provider Unavailabl e Encounter Details Date Type Department Care Team (Late Contact Info) Description 02/02/2025 Orders Only [facility] Oncology and Hematology - [place] [address] [place] [address] Manuel Godinez MD [address] [facility] [address] [place] [address] Malignant neoplasm of sigmoid colon (CMS/HCC) Social History Tobacco Use Types Packs/Day Years Used Date Smoking Tobacco: Former Cigarettes 1 40 1 - 11/19/2024 Smokeless Tobacco: Never Alcohol Use Standard Drinks/Week [...] st Contact Info) Description 02/09/2025 9:30 AM PIE BAKER Office Visit [facility] Oncology and Hematology - [place] [address] [place] [address] Sue Machado MD [address] [place] [id number] documented as of this encounter Procedures Procedure Name Priority Date/Time Associated Diagnosis Comments COMPREHENSIVE METABOLIC PANEL Routine 02/02/2025 12:43 PM PIE BAKER documented in this encounter Results * COMPREHENSIVE METABOLIC PANEL (02/02/2025 12:43 PM PIE BAKER) Blood us Manuel Godinez MD CHEMISTRY ORDERABLES Final Resu lt documented in this encounter Visit Diagnoses Diagnosis Malignant neoplasm of sigmoid colon (CMS/HCC) Malignant neoplasm of sigmoid colon documented in this encounter
--- NOTE | 2025-02-04 15:50 | PM.IMHP2 ---
H&P: HPI History of Present Illness Date/Time: 02/04/25 15:50 Chief Complaint: Generalized Weakness Narrative: 64 y/o F with PMH of metastatic colon cancer, HLD, HTN, asthma/COPD, and anxiety/depression presents here with generalized weakness. The patient presents here from home via EMS on 02/04 for further evaluation of generalized weakness. She reports this is been ongoing for the past 3 weeks. 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 She reported at her oncology visit on 01/19 that she has been having tiredness and fatigue. Was additionally noted to be anemia, chemo treatment today was reduced by 10% and she was started on iron/B12. The patient additionally reports she has received injections for her low white blood cell count, last given this week and was scheduled for another one today. However however, she is seeking care at [facility] today as she was unable to get out of bed due to the generalized weakness. She distally is reporting black tar stools that started 2 months ago. Denies any associated bright red blood. She has previously never required a blood transfusion. She denies associated shortness of breath, abdominal pain, chest pain, diarrhea, constipation, fever, chills, body aches. Last bowel movement today and it was dark/tarry but normal consistency. She also reports she has had poor p.o. intake for the past 1-2 weeks with no associated nausea or vomiting. Additionally reporting intermittent abdominal pain to her lower abdomen, bilateral that she describes as sharp/cutting. Occurs at random with no modifying factors. Initial VS at presentation: 97.9? F, HR 121, R 20, 93/62, and 100% on RA. ED workup showed: WBC 2.2, hemoglobin 7.3 (8.0 on 02/02), sodium 132, potassium 2.7, creatinine 0.95 and GFR >60, calcium 8.0/albumin 2.9. CT of the abdomen/pelvis showed no acute surgical abnormality, fluid in the small/large bowel may represent inflammatory infectious enteritis with diarrhea process, slightly decreased size of the liver masses and perirectal lymphadenopathy suggesting some positive response to treatment, small pericardial effusion on today's exam. EKG showed sinus tachycardia with frequent PVCs, rate 120, nonspecific ST and T-wave abnormality diffuse leads. Review of Systems Review of Systems: All systems reviewed & are unremarkable except as noted in HPI and below [facility] Past Medical History Medical History COPD (chronic obstructive pulmonary disease) Asthma Hypertension HLD (hyperlipidemia) Chemotherapy induced neutropenia Colon cancer Smoker Nausea and vomiting in adult Weight loss Rectal bleeding Family History Family History Father Asthma Diabetes mellitus Hypertension Heart disease Cerebrovascular accident Social History Social History Smoking packs per day: 1 Smoking cigarettes per day: 20.0 Years smoked: 40 Smoking pack-years: 40.00 Smoking status: Former smoker Tobacco type: cigarettes Smoking end date: 11/19/24 Alcohol intake: never Alcohol use details: NONE in two years Substance use: never Substance use type: does not use Other substance usage details: smoke it every other day and takes Tramadol often for knee pain Last use: 2 days ago Lack of Transportation: No Lack of Food: Never True Current Housing: I Have Housing Concerned About Future Housing: No Difficulty Paying Gas/Electric Bills: No Difficulty Paying for Meds: No Currently Unemployed: No Education: High School Diploma/GED Difficulty w/ Childcare or Family Care: No Living arrangements: with family Additional living arrangements comments: Fiance Spiritual care concerns: No Meds Home Medications and Allergies Home Medications ?Medication ?Instructions ?Recorded ?Confirmed ?Type albuterol sulfate 90 mcg/actuation 1 inh inhalation Q4-6H PRN 11/12/24 02/04/25 History breath activated powder inhaler shortness of breath or wheezing famotidine 20 mg tablet 20 mg PO DAILY 11/12/24 02/04/25 History fluticasone propionate 50 1 spray intranasal DAILY 11/12/24 02/04/25 History mcg/actuation nasal spray,suspension lisinopril 40 mg tablet 40 mg PO DAILY 11/12/24 02/04/25 History meclizine 25 mg tablet 25 mg PO TID 11/12/24 02/04/25 History nitroglycerin 0.4 mg sublingual 0.4 mg sublingual Q5M PRN chest 11/12/24 02/04/25 History tablet pain simvastatin 5 mg tablet 5 mg PO DAILY 11/12/24 02/04/25 History tramadol 50 mg tablet 50 mg PO Q6H PRN pain 11/12/24 02/04/25 History atenolol 50 mg tablet 50 mg PO DAILY 11/18/24 02/04/25 History gabapentin 600 mg tablet 600 mg PO Q8H 12/10/24 02/04/25 History umeclidinium 62.5 mcg-vilanterol 1 inh inhalation Q24H 12/10/24 02/04/25 History 25 mcg/actuation powdr for inhalation (Anoro Ellipta) dicyclomine 20 mg tablet See Rx Instructions .Route 12/15/24 02/04/25 Rx .COMPLEX #90 tabs alprazolam 0.5 mg tablet (Xanax) 0.25 mg PO TID 12/19/24 02/04/25 History Allergies Allergy/AdvReac Type Severity Reaction Status Date / Time No Known Allergies Allergy Verified 02/04/25 17:35 Vital Signs Vital Signs - 24 hr 02/04/25 11:58 02/04/25 13:16 Temperature 97.9 F Pulse Rate 121 H 115 H Respiratory Rate 20 23 H Blood Pressure 93/62 L 91/53 L Pulse Oximetry 100 100 Oxygen Delivery Room Air Exam Const: General: comfortable and no acute distress Other: , female, older appearing than stated age HENMT: Face/Nose/Sinus: Normal nares present Mouth: Yes moist mucous membranes Eyes: General: appearance normal, both eyes and all related structures Sclera: sclerae normal Pupils: Equal, round and reactive pupils present EOM: EOMs intact bilaterally Resp: Effort & Inspection: normal respiratory effort Auscultation: clear to auscultation bilaterally Cardio: Rate: regular rate Rhythm: regular rhythm Other: S1-S2 present without murmur, rub, ectopy GI: Other: Abdomen soft, nondistended, nontender. Normoactive bowel sounds in all quadrants. Skin: General skin exam: normal color and no rashes or lesions noted Wounds: no wounds Neuro: Speech: normal speech Motor exam (neuro): 5/5 motor strength present throughout Sensory Exam: normal sensation Other: A&O x4, generalized weakness Extrem: General: normal to inspection Psych: Mental Status: mental status grossly normal Affect: normal affect Other: Good insight and judgment, very pleasant Results Labs Labs: Short CBC 02/04/25 Range/Units 12:23 WBC 2.2 L (4.5-10.0) K/mm3 Hgb 7.3 L (12.0-15.0) g/dL Hct 23.0 L (37.0-47.0) % Plt Count 224 D (150-375) k/mm3 BMP 02/04/25 12:23 Sodium 132 L Potassium 2.7 L* Chloride 104 Carbon Dioxide 22 BUN 12 Creatinine 0.95 Glucose 101 Calcium 8.0 L Cardiac Enzymes 02/04/25 Range/Units 12:23 Troponin I 0.022 (0.000-0.034) ng/mL Liver Function 02/04/25 Range/Units 12:23 Total Bilirubin 0.5 (0.2-1.3) mg/dL AST 23 (14-36) U/L ALT 12 (6-35) U/L Alkaline Phosphatase 89 (38-126) U/L Albumin 2.9 L (3.5-5.1) g/dL Quality VTE Prophylaxis VTE prophylaxis: mechanical ordered Assessment and Plan Assessment and plan (1) Rectal bleeding: Code(s): K62.5 - Hemorrhage of anus and rectum Status: Acute Assessment and Plan: Patient reporting at dark tarry stools for the past 2 months, however did report to the ER physician it is only been the past week. Has been feeling generally weak for the last 3 weeks, worsened in the last few days. Past medical history significant for metastatic colon cancer. Has undergone chemotherapy treatments x2. Noted to be anemic during her previous oncology visit on 01/19. Started on iron/B12. Hemoglobin reduced compared to previous. 8.0 on 02/02, now 7.3 on 02/04. Arrived tachycardic in the 120s and blood pressure soft. Given abnormal vital signs and hemoglobin level, patient has 1 unit of PRBC ordered. - transfuse 1 unit of PRBC, 02/04. Repeat H&H 1 hour post transfusion, currently scheduled for 11:00 p.m. >> assessment this evening around 6:00 p.m. showed patient to have good color and heart rate/blood pressure improved with 3/4 of the blood transfusion completed. - GI consulted, per ED provider spoke with the on-call lightning rod erector they plan for patient to be NPO at midnight and undergo an EGD tomorrow - trend hemoglobin, transfuse if less than 7 - continue iron and B12 - start pantoprazole b.i.d. - monitor hemodynamic stability (2) Colon cancer: Qualifiers: Colon location: sigmoid Qualified Code(s): C18.7 - Malignant neoplasm of sigmoid colon Code(s): C18.9 - Malignant neoplasm of colon, unspecified Status: Acute Assessment and Plan: History of metastatic colon cancer with four masses to the liver. Currently undergoing palliative chemotherapy. Has received 2 treatments thus far. Last saw her oncologist, Dr. Godinez, on 01/19. She was started on iron and B12 as she was noted to be anemic and chemotherapy was reduced by 10%. Patient was also started on Neupogen 4 chemotherapy-induced neutropenia prophylaxis. Noted today to be anemic with a WBC of 2.2. Platelet count within normal limits. - oncology consulted - reporting poor appetite for the past 1-2 weeks, likely related to chemotherapy. Dietitian consulted for assistance with nutrition. (3) Metastasis to liver: Code(s): C78.7 - Secondary malignant neoplasm of liver and intrahepatic bile duct Status: Acute Assessment and Plan: - see above (4) Chemotherapy induced neutropenia: Code(s): D70.1 - Agranulocytosis secondary to cancer chemotherapy; T45.1X5A - Adverse effect of antineoplastic and immunosuppressive drugs, initial encounter Status: Acute Assessment and Plan: Started on Neupogen at her last oncology appointment on 01/19. WBC 13.3 (01/19) -> 1.4 (02/02) -> 2.2 (02/04). - oncology consulted (5) Asthma-COPD overlap syndrome: Code(s): J44.89 - Other specified chronic obstructive pulmonary disease Status: Chronic Assessment and Plan: No current evidence of exacerbation. Stable. - continue home medications: Anoro, fluticasone, albuterol (6) Hypertension: Qualifiers: Hypertension type: primary hypertension Qualified Code(s): I10 - Essential (primary) hypertension Code(s): I10 - Essential (primary) hypertension Status: Chronic Assessment and Plan: - chronic, currently 1 to her 47. Arrived with a soft blood pressure. - hold home medications including: Lisinopril 40 mg daily, atenolol 50 mg daily - monitor Plan Diet: Regular, NPO midnight GI Prophylaxis: n/a, however on PPI for GI bleed DVT Prophylaxis: SCDs IV fluids: no IVF, receiving 1u of PRBC Lines/Tubes: pIV Code Status: full code Prior Studies I have reviewed the following patient records and this information was taken into consideration when formulating the assessment and plan.: previous labs, previous ER visits, previous hospitalizations and previous clinic visits Time Spent with Patient Time with patient: less than 45 minutes Hospitalist MIPS Advance Care Plan I have confirmed that the patient's Advanced Care Plan is present, code status is documented, or surrogate decision maker is listed in patient medical record.: Yes Medication Reconciliation I have utilized all available resources to obtain, update and review the patients current medications (includes all prescriptions, OTC, herbals, cannabis, and nutritional supplements).: Yes
--- NOTE | 2025-02-04 16:52 | WPCEDHO ---
ED Hand Off Checklist All vitals saved:y IV Site documented:y All med administrations documented:y Triage Note Triage Note Per EMS, pt has had increased 02/04/25 11:58 weakness over past 3 weeks. Pt is doing chemo for colon cancer. Has received 2 treatments so far. Pt states she has had dark stools recently. Denies abdominal pain or N/V at this time Allergies No Known Allergies Allergy (Verified 02/04/25 12:08) Family History (Last Reviewed 02/04/25 @ 12:15 by Vish Smith DO) Father Asthma Diabetes mellitus Hypertension Heart disease Cerebrovascular accident Administered/Completed Medications Discontinued Medications Potassium Chloride (Kcl 40 Meq/Water 100 Ml) 100 mls @ 25 mls/hr IVPB ONCE STA Stop: 02/04/25 16:40 Last Admin: 02/04/25 13:10 Dose: 25 mls/hr Documented By: BELEM Co-signed By: LISA Potassium Chloride (Potassium Chloride 20 Meq Er Tablet) 40 meq PO ONCE STA Stop: 02/04/25 12:42 Last Admin: 02/04/25 12:53 Dose: 40 meq Documented By: EBLEM Interventions/Assessments IV / Saline Lock, Insert Start: 02/04/25 11:58 Freq: Status: Active Protocol: Document 02/04/25 16:50 CMM (Rec: 02/04/25 16:51 CMM [id number]) IV Assessment Peripheral Access Right Wrist IV Catheter Access Initiated IV Insertion Date 02/04/25 IV Insertion Time 16:40 Catheter Gauge 20 IV Insertion 1 Attempts IV Site Assessment WNL IV Care and WNL Maintenance Port-a-Cath Right Chest IV Catheter Access Continued PA: Cardiovascular Assessment Start: 02/04/25 11:58 Freq: Status: Active Protocol: Document 02/04/25 12:06 CMM (Rec: 02/04/25 12:08 CMM [id number]) Cardiovascular Assessment Cardiovascular None Symptoms Skin Description Normal Color PA: Neurological Assessment Start: 02/04/25 11:58 Freq: Status: Active Protocol: Document 02/04/25 12:06 CMM (Rec: 02/04/25 12:08 CMM [id number]) Neurological Assessment Level of Alert Consciousness Arousable to Verbal Orientation Oriented to Person,Oriented to Place,Oriented to Time Ability to Maintain Unable to Assess Balance Facial Symmetry Symmetrical Speech Pattern Garbled Ability to Swallow Normal Tongue Position Midline Bilateral Foot/Feet Extremity Movement Normal,Strong Push Description Bilateral Arm(s) Extremity Movement Normal,Strong Inspector Boiler Description Iggy Coma Scale Eyes Open Verbal Oriented and Alert Motor Follows Commands Iggy Coma Total 15 Score Last Vital Signs Temperature 97.8 F 02/04/25 16:42 Pulse Rate 107 H 02/04/25 16:51 Respiratory Rate 20 02/04/25 16:51 Pulse Oximetry 100 02/04/25 16:51 Blood Pressure 92/45 L 02/04/25 16:51 Blood Pressure Mean 60 02/04/25 16:51 Blood Pressure Position Sitting 02/04/25 16:51 Oxygen Delivery Room Air 02/04/25 11:58 Weight 56.7 kg 02/04/25 11:58 Last Result - Abnormals Only WBC 2.2 K/mm3 (4.5-10.0) L 02/04/25 12:23 RBC 2.63 M/mm3 (4.2-5.4) L 02/04/25 12:23 Hgb 7.3 g/dL (12.0-15.0) L 02/04/25 12:23 Hct 23.0 % (37.0-47.0) L 02/04/25 12:23 MCHC 31.7 g/dl (32-36) L 02/04/25 12:23 RDW 15.2 % (11.5-14.5) H 02/04/25 12:23 Neutrophils % (Manual) 16 % (46-73) L 02/04/25 12:23 Lymphocytes % (Manual) 46 % (18-44) H 02/04/25 12:23 Monocytes % (Manual) 38 % (3-9) H 02/04/25 12:23 Abs Lymphs (Manual) 1.01 K/mm3 (1.1-4.5) L 02/04/25 12:23 Sodium 132 mmol/L (137-145) L 02/04/25 12:23 Potassium 2.7 mmol/L (3.4-5.0) L* 02/04/25 12:23 Calcium 8.0 mg/dL (8.4-10.2) L 02/04/25 12:23 Total Protein 5.8 g/dL (6.3-8.2) L 02/04/25 12:23 Albumin 2.9 g/dL (3.5-5.1) L 02/04/25 12:23 Crossmatch See Detail 02/04/25 12:23 Most Recent Suicide Severity Rating Suicide Severity Rating NO RISK INDICATED 02/04/25 11:58
[2025-02-04] MEDS: SODIUM CHLORIDE 0.9% IV 250 ML 30 ML IV CONT (16:56)
[2025-02-04] MEDS: TUBING, BLOOD PLUM PUMP TUBING 1 EACH XX (16:57)
--- NOTE | 2025-02-04 17:35 | ADMGEN ---
This patient, Vianca West, was admitted to [facility] Surg Room 329-01. Patient/family oriented to hospital policies and general routines including ID bracelet, bed and alarms, visiting hours, pain management, procedures, bathroom and other care routines, personal items, smoking policy, room service/diet, and visiting hours. Information on how to activate the Rapid Response Team has been discussed. Patient/Family are encouraged to report perceived risks to care and to ask questions if they do not understand what they are told or what they should do. Admitted to room 329 from Emergency Room
[2025-02-04] MEDS: PANTOPRAZOLE SODIUM IV 40 MG VIAL IV PUSH (20:30)
[2025-02-04] MEDS: ALBUMIN HUMAN 25% 25 GM/100 ML 100 ML IVPB (20:31)
--- NOTE | 2025-02-04 21:34 | WPDGICN ---
Assessment and Plan Assessment and plan (1) Melena: Code(s): K92.1 - Melena Status: Acute Plan The patient with recto sigmoid cancer receiving FOLFOX and Avastin presents with melena and an acute Hb drop to 7, which may be likely related to either chemotherapy-induced mucosal injury or a new onset peptic ulcer disease. 5-FU can cause diffuse GI mucositis and Avastin can cause serious hemorrhage - Given the severity of the anemia and the high risk of ongoing bleeding an urgent EGD is planned for tomorrow to identify the source of bleeding. . Pt is already seen by oncology. - Fluid resuscitation and IV Pantoprazole initiated. 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 The patient started chemotherapy with FOLFOX and Avastin in December 22, and just received her 2nd cycle with decreased dose. She was admitted with a 2 day history of black tarry stools and weakness. Her hemoglobin today is 7.3. WBC 2.2, received Neupogen. She has been transfused. Rectal examination performed by the emergency room MD confirmed the presence of melena. The patient denies NSAID use. An EGD done the same day of colonoscopy, 11/19/2024 showed a small hiatal hernia but no evidence of erosions or gastro duodenal ulcers. Review of Systems Constitutional: Constitutional: Reports fatigue, Reports lethargy and Reports weakness Respiratory: Respiratory: Reports no additional respiratory complaints and Denies dyspnea PMFSH Past Medical History Medical History COPD (chronic obstructive pulmonary disease) Asthma Hypertension HLD (hyperlipidemia) Chemotherapy induced neutropenia Colon cancer Smoker Nausea and vomiting in adult Weight loss Rectal bleeding Family History Family History Father Asthma Diabetes mellitus Hypertension Heart disease Cerebrovascular accident Social History Social History Smoking packs per day: 1 Smoking cigarettes per day: 20.0 Years smoked: 40 Smoking pack-years: 40.00 Smoking status: Former smoker Tobacco type: cigarettes Smoking end date: 11/19/24 Alcohol intake: never Alcohol use details: NONE in two years Substance use: never Substance use type: does not use Other substance usage details: smoke it every other day and takes Tramadol often for knee pain Last use: 2 days ago Lack of Transportation: No Lack of Food: Never True Current Housing: I Have Housing Concerned About Future Housing: No Difficulty Paying Gas/Electric Bills: No Difficulty Paying for Meds: No Currently Unemployed: No Education: High School Diploma/GED Difficulty w/ Childcare or Family Care: No Living arrangements: with family Additional living arrangements comments: Fiance Spiritual care concerns: No Meds Home Medications and Allergies Home Medications ?Medication ?Instructions ?Recorded ?Confirmed ?Type albuterol sulfate 90 mcg/actuation 1 inh inhalation Q4-6H PRN 11/12/24 02/04/25 History breath activated powder inhaler shortness of breath or wheezing famotidine 20 mg tablet 20 mg PO DAILY 11/12/24 02/04/25 History fluticasone propionate 50 1 spray intranasal DAILY 11/12/24 02/04/25 History mcg/actuation nasal spray,suspension lisinopril 40 mg tablet 40 mg PO DAILY 11/12/24 02/04/25 History meclizine 25 mg tablet 25 mg PO TID 11/12/24 02/04/25 History nitroglycerin 0.4 mg sublingual 0.4 mg sublingual Q5M PRN chest 11/12/24 02/04/25 History tablet pain simvastatin 5 mg tablet 5 mg PO DAILY 11/12/24 02/04/25 History tramadol 50 mg tablet 50 mg PO Q6H PRN pain 11/12/24 02/04/25 History atenolol 50 mg tablet 50 mg PO DAILY 11/18/24 02/04/25 History gabapentin 600 mg tablet 600 mg PO Q8H 12/10/24 02/04/25 History umeclidinium 62.5 mcg-vilanterol 1 inh inhalation Q24H 12/10/24 02/04/25 History 25 mcg/actuation powdr for inhalation (Anoro Ellipta) dicyclomine 20 mg tablet See Rx Instructions .Route 12/15/24 02/04/25 Rx .COMPLEX #90 tabs alprazolam 0.5 mg tablet (Xanax) 0.25 mg PO TID 12/19/24 02/04/25 History Allergies Allergy/AdvReac Type Severity Reaction Status Date / Time No Known Allergies Allergy Verified 02/04/25 17:35 Vital Signs Vital Signs - 24 hr 02/04/25 11:58 02/04/25 13:16 02/04/25 16:42 Temperature 97.9 F 97.8 F Pulse Rate 121 H 115 H 102 H Respiratory Rate 20 23 H 22 H Blood Pressure 93/62 L 91/53 L 106/46 L Pulse Oximetry 100 100 Oxygen Delivery Room Air 02/04/25 16:51 02/04/25 16:57 02/04/25 16:58 Temperature 97.8 F Pulse Rate 107 H 96 99 Respiratory Rate 20 19 21 H Blood Pressure 92/45 L 92/45 L 102/48 L Pulse Oximetry 100 100 100 Oxygen Delivery 02/04/25 17:58 02/04/25 18:38 Temperature 97.7 F 97.9 F Pulse Rate 108 H 82 Respiratory Rate 24 H 18 Blood Pressure 96/56 L 112/57 L Pulse Oximetry 100 100 Oxygen Delivery Exam Const: General: uncomfortable Eyes: General: appearance normal, both eyes and all related structures Neck: Neck: supple Resp: Effort & Inspection: normal respiratory effort Auscultation: clear to auscultation bilaterally Cardio: Rate: regular rate Rhythm: regular rhythm GI: Inspection: non-distended Auscultation: normal bowel sounds Neuro: Speech: normal speech Results Labs 02/05/25 06:22 02/05/25 06:22 Labs: Short CBC 02/04/25 Range/Units 12:23 WBC 2.2 L (4.5-10.0) K/mm3 Hgb 7.3 L (12.0-15.0) g/dL Hct 23.0 L (37.0-47.0) % Plt Count 224 D (150-375) k/mm3 BMP 02/04/25 12:23 Sodium 132 L Potassium 2.7 L* Chloride 104 Carbon Dioxide 22 BUN 12 Creatinine 0.95 Glucose 101 Calcium 8.0 L Cardiac Enzymes 02/04/25 Range/Units 12:23 Troponin I 0.022 (0.000-0.034) ng/mL Liver Function 02/04/25 Range/Units 12:23 Total Bilirubin 0.5 (0.2-1.3) mg/dL AST 23 (14-36) U/L ALT 12 (6-35) U/L Alkaline Phosphatase 89 (38-126) U/L Albumin 2.9 L (3.5-5.1) g/dL
[2025-02-04] MEDS: GABAPENTIN 300 MG CAPSULE 600 MG PO (22:17)
[2025-02-04 23:09] LABS: Hematocrit 22.3 % (37.0-47.0); Hemoglobin 7.5 g/dL (12.0-15.0)
[2025-02-04 23:21] LABS: Iron 84 ug/dL (37-170)
[2025-02-04 23:22] LABS: Anion Gap 5 mmol/L (4-12); Blood Urea Nitrogen 14 mg/dL (7-17); Calcium 7.9 mg/dL (8.4-10.2); Carbon Dioxide 21 mmol/L (22-30); Chloride 109 mmol/L (98-107); Estimated CRCL calculation 43 ml/min; Estimated Glomerular Filt Rate 60; Glucose 101 mg/dL (65-110); Potassium 3.5 mmol/L (3.4-5.0); Sodium 135 mmol/L (137-145)
[2025-02-04 23:31] LABS: Percent Iron Saturation 54 % (20-50)
[2025-02-05] VITALS (12 sets, daily range): BP systolic 101–116; BP diastolic 49–86; PULSE 79–99; RESP 16–20; TEMP 35.8–36.7; O2SAT 94–100; BMI 22.2
[2025-02-05 00:34] LABS: Vitamin B12 763.0 pg/mL (239-931)
[2025-02-05] MEDS: ALBUMIN HUMAN 25% 25 GM/100 ML 100 ML IVPB ×3 (02:01→15:40)
[2025-02-05] MEDS: GABAPENTIN 300 MG CAPSULE 600 MG PO ×2 (06:23→20:59)
[2025-02-05] MEDS: CENTRAL LINE FLUSH 10 ML IV PUSH ×2 (06:30→21:00)
[2025-02-05 06:34] LABS: Hematocrit 22.8 % (37.0-47.0); Hemoglobin 7.4 g/dL (12.0-15.0); Mean Corpuscular HGB Conc 32.5 g/dl (32-36); Mean Corpuscular Hemoglobin 27.6 pg (26-34); Mean Corpuscular Volume 85.1 fl (80-100); Platelet Count Result 223 k/mm3 (150-375); Red Blood Count 2.68 M/mm3 (4.2-5.4); White Blood Count 4.0 K/mm3 (4.5-10.0)
[2025-02-05 06:57] LABS: Anion Gap 5 mmol/L (4-12); Blood Urea Nitrogen 13 mg/dL (7-17); Calcium 7.8 mg/dL (8.4-10.2); Carbon Dioxide 22 mmol/L (22-30); Chloride 111 mmol/L (98-107); Estimated CRCL calculation 49 ml/min; Estimated Glomerular Filt Rate > 60; Glucose 86 mg/dL (65-110); Potassium 3.4 mmol/L (3.4-5.0); Sodium 138 mmol/L (137-145)
[2025-02-05 07:25] LABS: Band Neutrophils Percent 5 % (0-6); Lymphocytes Absolute Manual 1.96 K/mm3 (1.1-4.5); Lymphocytes Percent Manual 49 % (18-44); Metamyelocytes Percent 3 %; Monocytes Absolute Manual 1.20 K/mm3 (0.1-0.90); Monocytes Percent Manual 30 % (3-9); Neutrophils Absolute Manual 0.72 K/mm3 (1.3-6.7); Neutrophils Percent Manual 13 % (46-73); Schistocytes None Seen; Total Cells Counted 100
[2025-02-05] MEDS: PANTOPRAZOLE SODIUM IV 40 MG VIAL IV PUSH (08:51)
[2025-02-05] MEDS: SIMVASTATIN 5 MG TABLET PO (08:51)
[2025-02-05] MEDS: MECLIZINE HCL 25 MG TABLET PO ×2 (08:51→17:45)
[2025-02-05] MEDS: FILGRASTIM-SNDZ 300 MCG/0.5 ML SYRINGE SUB-Q (08:51)
[2025-02-05] MEDS: FLUTICASONE PROPIONATE 0.05% NA SPR 16 GM BTL (*BKC) 1 SPRAY NASAL (08:52)
[2025-02-05] MEDS: UMECLIDINIUM/VILANTEROL 62.5-25 MCG ELLIPTA 1 PUFF INHALATION (09:15)
--- NOTE | 2025-02-05 12:49 | P.PNIM_ITS ---
Assessment and Plan Assessment and Plan (1) Rectal bleeding: Code(s): K62.5 - Hemorrhage of anus and rectum Status: Acute Assessment and Plan: Patient reporting at dark tarry stools for the past 2 months, however did report to the ER physician it is only been the past week. Has been feeling generally weak for the last 3 weeks, worsened in the last few days. Past medical history significant for metastatic colon cancer. Has undergone chemotherapy treatments x2. Noted to be anemic during her previous oncology visit on 01/19. Started on iron/B12. Hemoglobin reduced compared to previous. 8.0 on 02/02, now 7.3 on 02/04. Arrived tachycardic in the 120s and blood pressure soft. Given abnormal vital signs and hemoglobin level, patient has 1 unit of PRBC ordered. - transfuse 1 unit of PRBC, 02/04. Repeat H&H 1 hour post transfusion, currently scheduled for 11:00 p.m. >> assessment this evening around 6:00 p.m. showed patient to have good color and heart rate/blood pressure improved with 3/4 of the blood transfusion completed. - GI consulted, per ED provider spoke with the on-call small business consultant they plan for patient to be NPO at midnight and undergo an EGD tomorrow - trend hemoglobin, transfuse if less than 7 - continue iron and B12 - start pantoprazole b.i.d. - monitor hemodynamic stability (2) Colon cancer: Qualifiers: Colon location: sigmoid Qualified Code(s): C18.7 - Malignant neoplasm of sigmoid colon Code(s): C18.9 - Malignant neoplasm of colon, unspecified Status: Acute Assessment and Plan: History of metastatic colon cancer with four masses to the liver. Currently undergoing palliative chemotherapy. Has received 2 treatments thus far. Last saw her oncologist, Dr. Godinez, on 01/19. She was started on iron and B12 as she was noted to be anemic and chemotherapy was reduced by 10%. Patient was also started on Neupogen 4 chemotherapy-induced neutropenia prophylaxis. Noted today to be anemic with a WBC of 2.2. Platelet count within normal limits. - oncology consulted - reporting poor appetite for the past 1-2 weeks, likely related to chemotherapy. Dietitian consulted for assistance with nutrition. (3) Metastasis to liver: Code(s): C78.7 - Secondary malignant neoplasm of liver and intrahepatic bile duct Status: Acute Assessment and Plan: - see above (4) Chemotherapy induced neutropenia: Code(s): D70.1 - Agranulocytosis secondary to cancer chemotherapy; T45.1X5A - Adverse effect of antineoplastic and immunosuppressive drugs, initial encounter Status: Acute Assessment and Plan: Started on Neupogen at her last oncology appointment on 01/19. WBC 13.3 (01/19) -> 1.4 (02/02) -> 2.2 (02/04). - oncology consulted (5) Asthma-COPD overlap syndrome: Code(s): J44.89 - Other specified chronic obstructive pulmonary disease Status: Chronic Assessment and Plan: No current evidence of exacerbation. Stable. - continue home medications: Anoro, fluticasone, albuterol (6) Hypertension: Qualifiers: Hypertension type: primary hypertension Qualified Code(s): I10 - Essential (primary) hypertension Code(s): I10 - Essential (primary) hypertension Status: Chronic Assessment and Plan: - chronic, currently 1 to her 47. Arrived with a soft blood pressure. - hold home medications including: Lisinopril 40 mg daily, atenolol 50 mg daily - monitor Plan Diet: Regular, NPO midnight GI Prophylaxis: n/a, however on PPI for GI bleed DVT Prophylaxis: SCDs IV fluids: no IVF, receiving 1u of PRBC Lines/Tubes: pIV Code Status: full code Subjective Date/time seen: 02/05/25 12:49 Interval history: Patient was recently dx with metastatic colon cancer with liver metastasis. Will undergo EGD today due to black tarry stool. Review of Systems Review of Systems: All systems reviewed & are unremarkable except as noted in HPI and below Exam Const: General: comfortable and no acute distress Other: , female, older appearing than stated age HENMT: Face/Nose/Sinus: Normal nares present Mouth: Yes moist mucous membranes Eyes: General: appearance normal, both eyes and all related structures Sclera: sclerae normal Pupils: Equal, round and reactive pupils present EOM: EOMs intact bilaterally Resp: Effort & Inspection: normal respiratory effort Auscultation: clear to auscultation bilaterally Cardio: Rate: regular rate Rhythm: regular rhythm Other: S1-S2 present without murmur, rub, ectopy GI: Other: Abdomen soft, nondistended, nontender. Normoactive bowel sounds in all quadrants. Skin: General skin exam: normal color and no rashes or lesions noted Wounds: no wounds Neuro: Cranial nerves: Yes Equal, round and reactive pupils present Speech: normal speech Motor exam (neuro): 5/5 motor strength present throughout Sensory Exam: normal sensation Other: A&O x4, generalized weakness Extrem: General: normal to inspection Psych: Mental Status: mental status grossly normal Affect: normal affect Other: Good insight and judgment, very pleasant Objective Data Vital Signs Vital Signs: Vital Signs - 24 hr 02/04/25 13:16 02/04/25 16:42 02/04/25 16:51 Temperature 97.8 F Pulse Rate 115 H 102 H 107 H Respiratory Rate 23 H 22 H 20 Blood Pressure 91/53 L 106/46 L 92/45 L Pulse Oximetry 100 100 Oxygen Delivery 02/04/25 16:57 02/04/25 16:58 02/04/25 17:58 Temperature 97.8 F 97.7 F Pulse Rate 96 99 108 H Respiratory Rate 19 21 H 24 H Blood Pressure 92/45 L 102/48 L 96/56 L Pulse Oximetry 100 100 100 Oxygen Delivery 02/04/25 18:38 02/04/25 20:00 02/04/25 20:00 Temperature 97.9 F 97.6 F Pulse Rate 82 102 H Respiratory Rate 18 20 Blood Pressure 112/57 L 108/60 Pulse Oximetry 100 100 Oxygen Delivery Room Air 02/04/25 20:04 02/05/25 00:00 02/05/25 00:00 Temperature 98.1 F Pulse Rate 107 H 87 96 Respiratory Rate 20 Blood Pressure 104/53 L Pulse Oximetry 98 Oxygen Delivery 02/05/25 04:00 02/05/25 04:00 02/05/25 08:00 Temperature 98.1 F 96.4 F L Pulse Rate 90 93 91 Respiratory Rate 18 16 Blood Pressure 116/68 116/71 Pulse Oximetry 99 100 Oxygen Delivery 02/05/25 08:00 02/05/25 09:16 02/05/25 09:16 Temperature Pulse Rate 84 87 87 Respiratory Rate 20 20 Blood Pressure Pulse Oximetry 95 Oxygen Delivery Room Air 02/05/25 12:00 Temperature 96.8 F L Pulse Rate 93 Respiratory Rate 16 Blood Pressure 104/61 Pulse Oximetry 96 Oxygen Delivery Intake/Output Intake/Output: Intake & Output 02/02/25 02/03/25 02/04/25 02/05/25 23:59 23:59 23:59 23:59 Intake Total 750 300 Balance 750 300 Meds/Results Medications: Active Medications Generic Name Dose Route Start Last Admin Trade Name Freq PRN Reason Stop Dose Admin Albuterol 1 puff 02/04/25 23:17 Albuterol Sulfate (*Sp) Aerosol 1 Puff INHALATION Q4HRT PRN shortness of breath or wheezing Dicyclomine HCl 20 mg 02/04/25 19:10 Dicyclomine Hcl 10 Mg Capsule PO TID PRN ABD PAIN Filgrastim-Sndz 300 mcg 02/05/25 09:00 02/05/25 08:51 Filgrastim-Sndz 300 Mcg/0.5 Ml Syringe SUB-Q 300 mcg DAILY MARINO Administration Fluticasone Propionate 1 spray 02/05/25 09:00 02/05/25 08:52 Fluticasone Propionate 0.05% Na Spr 16 Gm Btl (*Bkc) NASAL 1 spray DAILY MARINO Administration Gabapentin 600 mg 02/04/25 22:00 02/05/25 06:23 Gabapentin 300 Mg Capsule PO 600 mg Q8HR MARINO Administration Albumin Human 100 mls @ 60 mls/hr 02/04/25 20:00 02/05/25 10:35 Albutein IVPB 02/05/25 15:39 Infused Q6H MARINO Infusion Meclizine HCl 25 mg 02/05/25 09:00 02/05/25 08:51 Meclizine Hcl 25 Mg Tablet PO 25 mg TID MARINO Administration Pantoprazole Sodium 40 mg 02/04/25 21:00 02/05/25 08:51 Pantoprazole Sodium Iv 40 Mg Vial IV PUSH 40 mg Q12HR MARINO Administration Simvastatin 5 mg 02/05/25 09:00 02/05/25 08:51 Simvastatin 5 Mg Tablet PO 5 mg DAILY MARINO Administration Sodium Chloride 10 ml 02/05/25 06:00 02/05/25 06:30 Central Line Flush IV PUSH 10 ml Q8HR MARINO Administration Sodium Chloride 20 ml 02/04/25 23:13 Central Line Flush IV PUSH PRN PRN after blood draws Tramadol HCl 50 mg 02/04/25 19:10 Tramadol Hcl (*Crx) 50 Mg Tablet PO Q6H PRN Pain Umeclidinium/Vilanterol 1 puff 02/05/25 08:00 02/05/25 09:15 Umeclidinium/Vilanterol 62.5-25 Mcg Ellipta INHALATION 1 puff DAILYRT MARINO Administration Radiology Results: ITS Impressions Abdomen/Pelvis CT 02/04/25 14:29 IMPRESSION: 1. No acute surgical abnormality identified. Fluid in the small and large bowel may represent inflammatory or infectious enteritis with diarrhea process. 2. Slight decreased size of liver masses and perirectal lymphadenopathy suggesting some positive response to treatment. 3. Small pericardial effusion on today's exam. Labs Labs: Laboratory Results - last 24 hr 02/04/25 02/04/25 02/05/25 12:23 23:02 06:22 WBC 2.2 L 4.0 L RBC 2.63 L 2.68 L Hgb 7.3 L 7.5 L 7.4 L Hct 23.0 L 22.3 L 22.8 L MCV 87.5 85.1 MCH 27.8 27.6 MCHC 31.7 L 32.5 RDW 15.2 H 15.9 H Plt Count 224 D 223 MPV 10.1 10.0 Immature Gran % (Auto) Not Reportable Not Reportable Neut % (Auto) Not Reportable Not Reportable Lymph % (Auto) Not Reportable Not Reportable [place] % (Auto) Not Reportable Not Reportable Eos % (Auto) Not Reportable Not Reportable Baso % (Auto) Not Reportable Not Reportable Lymph # (Auto) Not Reportable Not Reportable [place] # (Auto) Not Reportable Not Reportable Eos # (Auto) Not Reportable Not Reportable Baso # (Auto) Not Reportable Not Reportable Abs Immat Gran (auto) Not Reportable Not Reportable Absolute Neuts (auto) Not Reportable Not Reportable Absolute Nucleated RBC Not Reportable Not Reportable Total Counted 100 100 Neutrophils % (Manual) 16 L 13 L Band Neutrophils % Not Reportable 5 Lymphocytes % (Manual) 46 H 49 H Monocytes % (Manual) 38 H 30 H Metamyelocytes % 3 Nucleated RBC % Not Reportable Not Reportable Abs Neuts (Manual) 0.72 L Abs Lymphs (Manual) 1.01 L 1.96 Abs Monocytes (Manual) 0.83 1.20 H Nucleated RBCs 1 Smudge Cells Present Platelet Estimate Adequate Adequate Large Platelets Present % Immature Plt Fraction 4.5 Polychromasia Occasional Basophilic Stippling Occasional Anisocytosis 1+ Epping Cells 1+ Schistocytes None seen None seen Sodium 135 L 138 Potassium 3.5 3.4 Chloride 109 H 111 H Carbon Dioxide 21 L 22 Anion Gap 5 5 BUN 14 13 Creatinine 0.94 0.82 Estim Creat Clear Calc 43 49 Estimated GFR 60 > 60 Glucose 101 86 Calcium 7.9 L 7.8 L Iron 84 TIBC 156 L % Saturation 54 H Ferritin 525.00 H Troponin I 0.022 Vitamin B12 763.0 Folate > 20.0 H Blood Type A Negative Antibody Screen Negative Crossmatch See Detail Quality VTE Prophylaxis VTE prophylaxis: mechanical ordered Hospitalist MIPS Advance Care Plan I have confirmed that the patient's Advanced Care Plan is present, code status is documented, or surrogate decision maker is listed in patient medical record.: Yes Medication Reconciliation I have utilized all available resources to obtain, update and review the patients current medications (includes all prescriptions, OTC, herbals, cannabis, and nutritional supplements).: Yes
--- NOTE | 2025-02-05 13:45 | PC.NURSE ---
Patient off floor to GI lab via wheelchair.
[2025-02-05] MEDS: LACTATED RINGERS 1,000 ML 150 ML IV CONT (14:02)
[2025-02-05] MEDS: SIMETHICONE ORAL SUSPENSION 20 MG/0.3 ML 30 ML BOTTLE 0.6 ML PO (14:03)
--- NOTE | 2025-02-05 14:20 | WPDANESEPPF ---
Anes - Initial Pre Proc Eval Procedure: Operation Date: 02/05/25 15:00 Proposed Procedures p Esophagogastroduodenoscopy - Dangelo Guerrero MD Date/Time: 02/05/25 14:20 Surgeon: Kian Michel MD Pre Op Diagnosis: Anemia/Hypokalemia Patient Data Age: 64 Gender: F Height: 1.6 m Weight: 57 kg Last Vital Signs Temp 97.3 F L 02/05/25 14:05 Pulse 93 02/05/25 14:05 Resp 16 02/05/25 14:05 BP 116/86 02/05/25 14:05 Pulse Ox 100 02/05/25 14:05 O2 Del Method Room Air 02/05/25 14:05 Allergies Allergy/AdvReac Type Severity Reaction Status Date / Time No Known Allergies Allergy Verified 02/04/25 17:35 Home Medications ?Medication ?Instructions ?Recorded ?Confirmed ?Type albuterol sulfate 90 mcg/actuation 1 inh inhalation Q4-6H PRN 11/12/24 02/04/25 History breath activated powder inhaler shortness of breath or wheezing famotidine 20 mg tablet 20 mg PO DAILY 11/12/24 02/04/25 History fluticasone propionate 50 1 spray intranasal DAILY 11/12/24 02/04/25 History mcg/actuation nasal spray,suspension lisinopril 40 mg tablet 40 mg PO DAILY 11/12/24 02/04/25 History meclizine 25 mg tablet 25 mg PO TID 11/12/24 02/04/25 History nitroglycerin 0.4 mg sublingual 0.4 mg sublingual Q5M PRN chest 11/12/24 02/04/25 History tablet pain simvastatin 5 mg tablet 5 mg PO DAILY 11/12/24 02/04/25 History tramadol 50 mg tablet 50 mg PO Q6H PRN pain 11/12/24 02/04/25 History atenolol 50 mg tablet 50 mg PO DAILY 11/18/24 02/04/25 History gabapentin 600 mg tablet 600 mg PO Q8H 12/10/24 02/04/25 History umeclidinium 62.5 mcg-vilanterol 1 inh inhalation Q24H 12/10/24 02/04/25 History 25 mcg/actuation powdr for inhalation (Anoro Ellipta) dicyclomine 20 mg tablet See Rx Instructions .Route 12/15/24 02/04/25 Rx .COMPLEX #90 tabs alprazolam 0.5 mg tablet (Xanax) 0.25 mg PO TID 12/19/24 02/04/25 History Laboratory Tests 02/04/25 02/04/25 02/05/25 12:23 23:02 06:22 WBC 4.0 L K/mm3 (4.5-10.0) RBC 2.68 L M/mm3 (4.2-5.4) Hgb 7.5 L g/dL 7.4 L g/dL (12.0-15.0) (12.0-15.0) Hct 22.3 L % 22.8 L % (37.0-47.0) (37.0-47.0) MCV 85.1 fl (80-100) MCH 27.6 pg (26-34) MCHC 32.5 g/dl (32-36) RDW 15.9 H % (11.5-14.5) Plt Count 223 k/mm3 (150-375) MPV 10.0 fl (7.4-10.4) Immature Gran % (Auto) Not Reportable Neut % (Auto) Not Reportable Lymph % (Auto) Not Reportable [place] % (Auto) Not Reportable Eos % (Auto) Not Reportable Baso % (Auto) Not Reportable Lymph # (Auto) Not Reportable [place] # (Auto) Not Reportable Eos # (Auto) Not Reportable Baso # (Auto) Not Reportable Abs Immat Gran (auto) Not Reportable Absolute Neuts (auto) Not Reportable Absolute Nucleated RBC Not Reportable Total Counted 100 Neutrophils % (Manual) 13 L % (46-73) Band Neutrophils % 5 % (0-6) Lymphocytes % (Manual) 49 H % (18-44) Monocytes % (Manual) 30 H % (3-9) Metamyelocytes % 3 % Nucleated RBC % Not Reportable Abs Neuts (Manual) 0.72 L K/mm3 (1.3-6.7) Abs Lymphs (Manual) 1.96 K/mm3 (1.1-4.5) Abs Monocytes (Manual) 1.20 H K/mm3 (0.1-0.90) Nucleated RBCs 1 % Platelet Estimate Adequate (Adequate) Schistocytes None seen Sodium 135 L mmol/L 138 mmol/L (137-145) (137-145) Potassium 3.5 mmol/L 3.4 mmol/L (3.4-5.0) (3.4-5.0) Chloride 109 H mmol/L 111 H mmol/L (98-107) (98-107) Carbon Dioxide 21 L mmol/L 22 mmol/L (22-30) (22-30) Anion Gap 5 mmol/L 5 mmol/L (4-12) (4-12) BUN 14 mg/dL 13 mg/dL (7-17) (7-17) Creatinine 0.94 mg/dL 0.82 mg/dL (0.7-1.0) (0.7-1.0) Estim Creat Clear Calc 43 ml/min 49 ml/min Estimated GFR 60 > 60 (59 - ) (59 - ) Glucose 101 mg/dL 86 mg/dL (65-110) (65-110) Calcium 7.9 L mg/dL 7.8 L mg/dL (8.4-10.2) (8.4-10.2) Iron 84 ug/dL (37-170) TIBC 156 L ug/dL (261-462) % Saturation 54 H % (20-50) Niesha Transferrin Receptr Pending Ferritin 525.00 H ng/mL (11.1-264) Vitamin B12 763.0 pg/mL (239-931) Folate > 20.0 H ng/mL (2.76->20) Blood Type A Negative Antibody Screen Negative Crossmatch See Detail Patient hx anesthesia problems: none Family hx anesthesia problems: none Results Review: All pre-operative results and documents have been reviewed as part of the pre-operative evaluation. [facility]LY [facility] Past Medical History Medical History COPD (chronic obstructive pulmonary disease) Asthma Hypertension HLD (hyperlipidemia) Chemotherapy induced neutropenia Colon cancer Smoker Nausea and vomiting in adult Weight loss Rectal bleeding Family History Family History Father Asthma Diabetes mellitus Hypertension Heart disease Cerebrovascular accident Social History Social History Smoking packs per day: 1 Smoking cigarettes per day: 20.0 Years smoked: 40 Smoking pack-years: 40.00 Smoking status: Former smoker Tobacco type: cigarettes Smoking end date: 11/19/24 Alcohol intake: never Alcohol use details: NONE in two years Substance use: never Substance use type: does not use Other substance usage details: smoke it every other day and takes Tramadol often for knee pain Last use: 2 days ago Lack of Transportation: No Lack of Food: Never True Current Housing: I Have Housing Concerned About Future Housing: No Difficulty Paying Gas/Electric Bills: No Difficulty Paying for Meds: No Currently Unemployed: No Education: High School Diploma/GED Difficulty w/ Childcare or Family Care: No Living arrangements: with family Additional living arrangements comments: Fiance Spiritual care concerns: No Anes - Eval Final PreProcedure Day of Procedure 02/05/25 14:20 Patient weight: normal Lungs: normal air movement Airway: Mallampati scale class II and special considerations (Upper edentulous. ) Neurological: alert and oriented Last oral intake: >/= 8 hours ASA classification: III Emergent: no Anesthetic plan: proceed Anesthesia type and monitoring: general GIVS and standard monitoring Results Review: All pre-operative results and documents have been reviewed as part of the pre-operative evaluation. Metastatic colon ca, now w anemia/melena, COPD/asthma, hx of smoking. Informed Consent: The patient's anesthetic plan and its attendant risks and benefits were discussed with the patient/family/POA. Questions were solicited and answers provided to the satisfaction of the patient/family/POA.
--- NOTE | 2025-02-05 14:56 | WPDGIPROGNO ---
Progress Note: A&P Assessment and Plan (1) Rectal cancer: Code(s): C20 - Malignant neoplasm of rectum Status: Acute Assessment and Plan: See EGD report. Patient does not have evidence of upper GI bleeding. She has been recently started on iron pills, which probably explains the dark black color of her stools. Anemia is probably likely to current chemotherapy. Suggest conservative approach, and constant evaluation by Oncology. (2) Metastasis to liver: Code(s): C78.7 - Secondary malignant neoplasm of liver and intrahepatic bile duct Status: Acute Subjective Date/time seen: 02/05/25 14:56 Interval history: Patient remained hemodynamically stable. Hemoglobin remained stable, no further drop, no episodes of black stools. Exam Const: General: no acute distress Resp: Effort & Inspection: normal respiratory effort Auscultation: clear to auscultation bilaterally Cardio: Rate: regular rate Rhythm: regular rhythm GI: Inspection: non-distended GI Palp: Yes Soft to palpation, No Firmness to palpation present (GI), No Tenderness to palpation present (GI) and No Guarding due to palpation present (GI) : Other: Rectal : scant amout of dark stools, no melena (iron vs. pepto bismol aspect) Objective Data Vital Signs Vital Signs: Vital Signs - 24 hr 02/04/25 16:42 02/04/25 16:51 02/04/25 16:57 Temperature 97.8 F Pulse Rate 102 H 107 H 96 Respiratory Rate 22 H 20 19 Blood Pressure 106/46 L 92/45 L 92/45 L Pulse Oximetry 100 100 Oxygen Delivery 02/04/25 16:58 02/04/25 17:58 02/04/25 18:38 Temperature 97.8 F 97.7 F 97.9 F Pulse Rate 99 108 H 82 Respiratory Rate 21 H 24 H 18 Blood Pressure 102/48 L 96/56 L 112/57 L Pulse Oximetry 100 100 100 Oxygen Delivery 02/04/25 20:00 02/04/25 20:00 02/04/25 20:04 Temperature 97.6 F Pulse Rate 102 H 107 H Respiratory Rate 20 Blood Pressure 108/60 Pulse Oximetry 100 Oxygen Delivery Room Air 02/05/25 00:00 02/05/25 00:00 02/05/25 04:00 Temperature 98.1 F Pulse Rate 87 96 90 Respiratory Rate 20 Blood Pressure 104/53 L Pulse Oximetry 98 Oxygen Delivery 02/05/25 04:00 02/05/25 08:00 02/05/25 08:00 Temperature 98.1 F 96.4 F L Pulse Rate 93 91 84 Respiratory Rate 18 16 Blood Pressure 116/68 116/71 Pulse Oximetry 99 100 Oxygen Delivery 02/05/25 09:16 02/05/25 09:16 02/05/25 12:00 Temperature 96.8 F L Pulse Rate 87 87 93 Respiratory Rate 20 20 16 Blood Pressure 104/61 Pulse Oximetry 95 96 Oxygen Delivery Room Air 02/05/25 12:00 02/05/25 13:28 02/05/25 14:05 Temperature 96.7 F L 97.3 F L Pulse Rate 79 89 93 Respiratory Rate 16 16 Blood Pressure 112/69 116/86 Pulse Oximetry 94 100 Oxygen Delivery Room Air 02/05/25 14:49 Temperature Pulse Rate 89 Respiratory Rate 18 Blood Pressure 106/55 L Pulse Oximetry 99 Oxygen Delivery Room Air Intake/Output Intake/Output: Intake & Output 02/02/25 02/03/25 02/04/25 02/05/25 23:59 23:59 23:59 23:59 Intake Total 750 300 Balance 750 300 Meds/Results Medications: Active Medications Generic Name Dose Route Start Last Admin Trade Name Freq PRN Reason Stop Dose Admin Albuterol 1 puff 02/04/25 23:17 Albuterol Sulfate (*Sp) Aerosol 1 Puff INHALATION Q4HRT PRN shortness of breath or wheezing Dicyclomine HCl 20 mg 02/04/25 19:10 Dicyclomine Hcl 10 Mg Capsule PO TID PRN ABD PAIN Filgrastim-Sndz 300 mcg 02/05/25 09:00 02/05/25 08:51 Filgrastim-Sndz 300 Mcg/0.5 Ml Syringe SUB-Q 300 mcg DAILY MARINO Administration Fluticasone Propionate 1 spray 02/05/25 09:00 02/05/25 08:52 Fluticasone Propionate 0.05% Na Spr 16 Gm Btl (*Bkc) NASAL 1 spray DAILY MARINO Administration Gabapentin 600 mg 02/04/25 22:00 02/05/25 13:40 Gabapentin 300 Mg Capsule PO Not Given Q8HR MARINO Albumin Human 100 mls @ 60 mls/hr 02/04/25 20:00 02/05/25 10:35 Albutein IVPB 02/05/25 15:39 Infused Q6H MARINO Infusion Lactated Ringer's 1,000 mls @ 150 mls/hr 02/05/25 13:30 02/05/25 14:45 Lr - Lactated Ringers Iv IV CONT 150 mls/hr .Q6H40M MARINO Infusion Meclizine HCl 25 mg 02/05/25 09:00 02/05/25 13:40 Meclizine Hcl 25 Mg Tablet PO Not Given TID MARINO Simethicone 0.6 ml 02/05/25 14:03 02/05/25 14:03 Simethicone Oral Suspension 20 Mg/0.3 Ml 30 Ml Bottle PO 1.8 ml ONCE PRN Administration Gas Discomfort Simvastatin 5 mg 02/05/25 09:00 02/05/25 08:51 Simvastatin 5 Mg Tablet PO 5 mg DAILY MARINO Administration Sodium Chloride 10 ml 02/05/25 06:00 02/05/25 13:41 Central Line Flush IV PUSH Not Given Q8HR MARINO Sodium Chloride 20 ml 02/04/25 23:13 Central Line Flush IV PUSH PRN PRN after blood draws Tramadol HCl 50 mg 02/04/25 19:10 Tramadol Hcl (*Crx) 50 Mg Tablet PO Q6H PRN Pain Umeclidinium/Vilanterol 1 puff 02/05/25 08:00 02/05/25 09:15 Umeclidinium/Vilanterol 62.5-25 Mcg Ellipta INHALATION 1 puff DAILYRT MARINO Administration Radiology Results: ITS Impressions Abdomen/Pelvis CT 02/04/25 14:29 IMPRESSION: 1. No acute surgical abnormality identified. Fluid in the small and large bowel may represent inflammatory or infectious enteritis with diarrhea process. 2. Slight decreased size of liver masses and perirectal lymphadenopathy suggesting some positive response to treatment. 3. Small pericardial effusion on today's exam. Labs Labs: Laboratory Results - last 24 hr 02/04/25 02/04/25 02/05/25 12:23 23:02 06:22 WBC 4.0 L RBC 2.68 L Hgb 7.5 L 7.4 L Hct 22.3 L 22.8 L MCV 85.1 MCH 27.6 MCHC 32.5 RDW 15.9 H Plt Count 223 MPV 10.0 Immature Gran % (Auto) Not Reportable Neut % (Auto) Not Reportable Lymph % (Auto) Not Reportable [place] % (Auto) Not Reportable Eos % (Auto) Not Reportable Baso % (Auto) Not Reportable Lymph # (Auto) Not Reportable [place] # (Auto) Not Reportable Eos # (Auto) Not Reportable Baso # (Auto) Not Reportable Abs Immat Gran (auto) Not Reportable Absolute Neuts (auto) Not Reportable Absolute Nucleated RBC Not Reportable Total Counted 100 Neutrophils % (Manual) 13 L Band Neutrophils % 5 Lymphocytes % (Manual) 49 H Monocytes % (Manual) 30 H Metamyelocytes % 3 Nucleated RBC % Not Reportable Abs Neuts (Manual) 0.72 L Abs Lymphs (Manual) 1.96 Abs Monocytes (Manual) 1.20 H Nucleated RBCs 1 Platelet Estimate Adequate Schistocytes None seen Sodium 135 L 138 Potassium 3.5 3.4 Chloride 109 H 111 H Carbon Dioxide 21 L 22 Anion Gap 5 5 BUN 14 13 Creatinine 0.94 0.82 Estim Creat Clear Calc 43 49 Estimated GFR 60 > 60 Glucose 101 86 Calcium 7.9 L 7.8 L Iron 84 TIBC 156 L % Saturation 54 H Ferritin 525.00 H Vitamin B12 763.0 Folate > 20.0 H Blood Type A Negative Antibody Screen Negative Crossmatch See Detail
[2025-02-05 17:53] LABS: Hematocrit 22.2 % (37.0-47.0); Hemoglobin 7.3 g/dL (12.0-15.0)
[2025-02-06] VITALS (8 sets, daily range): BP systolic 118–133; BP diastolic 57–66; PULSE 79–150; RESP 16–20; TEMP 36.2–36.7; O2SAT 98–99
[2025-02-06 00:29] LABS: Hematocrit 24.1 % (37.0-47.0); Hemoglobin 7.9 g/dL (12.0-15.0)
[2025-02-06] MEDS: GABAPENTIN 300 MG CAPSULE 600 MG PO ×3 (05:20→22:00)
[2025-02-06] MEDS: CENTRAL LINE FLUSH 10 ML IV PUSH ×3 (05:21→22:00)
[2025-02-06 05:26] LABS: Hematocrit 24.8 % (37.0-47.0); Hemoglobin 8.1 g/dL (12.0-15.0)
--- NOTE | 2025-02-06 06:40 | P.CDI_ITS ---
CDI Query Clarification Request : 22.3BMI Nutritional Diagnostic Statement: Please refer to the comprehensive nutrition assessment for further information. If you agree with diagnosis of Severe protein calorie malnutrition related to poor appetite in the setting of metastatic colon cancer, chemotherapy as evidenced by weight loss 17%/6 months, intakes <75% needs >1 month; severe muscle wasting to temporalis. Please specify severity if known: * Mild * Moderate * Severe * Other/Unknown <Angelique Keyes RN - Last Filed: 02/06/25 06:41> Clarified Diagnosis Clarified Diagnosis: Severe protein calorie malnutrition <Kian Michel MD - Last Filed: 02/06/25 16:19> Provider Comments Severe protein calorie malnutrition <Kian Michel MD - Last Filed: 02/06/25 16:19>
[2025-02-06] MEDS: UMECLIDINIUM/VILANTEROL 62.5-25 MCG ELLIPTA 1 PUFF INHALATION (07:29)
[2025-02-06] MEDS: SIMVASTATIN 5 MG TABLET PO (09:48)
[2025-02-06] MEDS: FLUTICASONE PROPIONATE 0.05% NA SPR 16 GM BTL (*BKC) 1 SPRAY NASAL (09:48)
[2025-02-06] MEDS: MECLIZINE HCL 25 MG TABLET PO ×3 (09:48→17:23)
[2025-02-06] MEDS: FILGRASTIM-SNDZ 300 MCG/0.5 ML SYRINGE SUB-Q (10:12)
[2025-02-06 12:05] LABS: Hematocrit 25.4 % (37.0-47.0); Hemoglobin 8.4 g/dL (12.0-15.0)
--- NOTE | 2025-02-06 14:45 | PM.IMPN2 ---
Assessment and Plan Assessment and Plan (1) Rectal bleeding: Code(s): K62.5 - Hemorrhage of anus and rectum Status: Acute Assessment and Plan: Patient reporting at dark tarry stools for the past 2 months, however did report to the ER physician it is only been the past week. Has been feeling generally weak for the last 3 weeks, worsened in the last few days. Past medical history significant for metastatic colon cancer. Has undergone chemotherapy treatments x2. Noted to be anemic during her previous oncology visit on 01/19. Started on iron/B12. Hemoglobin reduced compared to previous. 8.0 on 02/02, now 7.3 on 02/04. Arrived tachycardic in the 120s and blood pressure soft. Given abnormal vital signs and hemoglobin level, patient has 1 unit of PRBC ordered. - transfuse 1 unit of PRBC, 02/04. Repeat H&H 1 hour post transfusion, currently scheduled for 11:00 p.m. >> assessment this evening around 6:00 p.m. showed patient to have good color and heart rate/blood pressure improved with 3/4 of the blood transfusion completed. - GI consulted, per ED provider spoke with the on-call buffing wheel former automatic they plan for patient to be NPO at midnight and undergo an EGD tomorrow - trend hemoglobin, transfuse if less than 7 - continue iron and B12 - start pantoprazole b.i.d. - monitor hemodynamic stability egd yesterday- Patient does not have evidence of upper GI bleeding. She has been recently started on iron pills, which probably explains the dark black color of her stools. Anemia is probably likely to current chemotherapy. Suggest conservative approach, and constant evaluation by Oncology. (2) Colon cancer: Qualifiers: Colon location: sigmoid Qualified Code(s): C18.7 - Malignant neoplasm of sigmoid colon Code(s): C18.9 - Malignant neoplasm of colon, unspecified Status: Acute Assessment and Plan: History of metastatic colon cancer with four masses to the liver. Currently undergoing palliative chemotherapy. Has received 2 treatments thus far. Last saw her oncologist, Dr. Godinez, on 01/19. She was started on iron and B12 as she was noted to be anemic and chemotherapy was reduced by 10%. Patient was also started on Neupogen 4 chemotherapy-induced neutropenia prophylaxis. Noted today to be anemic with a WBC of 2.2. Platelet count within normal limits. - oncology consulted - reporting poor appetite for the past 1-2 weeks, likely related to chemotherapy. Dietitian consulted for assistance with nutrition. (3) Metastasis to liver: Code(s): C78.7 - Secondary malignant neoplasm of liver and intrahepatic bile duct Status: Acute Assessment and Plan: - see above (4) Chemotherapy induced neutropenia: Code(s): D70.1 - Agranulocytosis secondary to cancer chemotherapy; T45.1X5A - Adverse effect of antineoplastic and immunosuppressive drugs, initial encounter Status: Acute Assessment and Plan: Started on Neupogen at her last oncology appointment on 01/19. WBC 13.3 (01/19) -> 1.4 (02/02) -> 2.2 (02/04). - oncology consulted (5) Asthma-COPD overlap syndrome: Code(s): J44.89 - Other specified chronic obstructive pulmonary disease Status: Chronic Assessment and Plan: No current evidence of exacerbation. Stable. - continue home medications: Anoro, fluticasone, albuterol (6) Hypertension: Qualifiers: Hypertension type: primary hypertension Qualified Code(s): I10 - Essential (primary) hypertension Code(s): I10 - Essential (primary) hypertension Status: Chronic Assessment and Plan: - chronic, currently 1 to her 47. Arrived with a soft blood pressure. - hold home medications including: Lisinopril 40 mg daily, atenolol 50 mg daily - monitor Plan Diet: Regular, NPO midnight GI Prophylaxis: n/a, however on PPI for GI bleed DVT Prophylaxis: SCDs IV fluids: no IVF, receiving 1u of PRBC Lines/Tubes: pIV Code Status: full code Medical Record Review I have reviewed the following patient records and this information was taken into consideration when formulating the assessment and plan.: previous labs Time Spent With Patient Time with patient: 25 - 35 minutes Subjective Date/time seen: 02/06/25 14:45 Interval history: Pt is seen and examined. She was recently dx with metastatic colon cancer with liver metastasis. Underwent EGD yesterday due to black tarry stool. She reports feeling very weak and unsteady on her feet. denies blood in stool Review of Systems Review of Systems: All systems reviewed & are unremarkable except as noted in HPI and below Exam Const: General: comfortable and no acute distress Other: , female, older appearing than stated age HENMT: Face/Nose/Sinus: Normal nares present Mouth: Yes moist mucous membranes Eyes: General: appearance normal, both eyes and all related structures Sclera: sclerae normal Pupils: Equal, round and reactive pupils present EOM: EOMs intact bilaterally Resp: Effort & Inspection: normal respiratory effort Auscultation: clear to auscultation bilaterally Cardio: Rate: regular rate Rhythm: regular rhythm Other: S1-S2 present without murmur, rub, ectopy GI: Other: Abdomen soft, nondistended, nontender. Normoactive bowel sounds in all quadrants. Skin: General skin exam: normal color and no rashes or lesions noted Wounds: no wounds Neuro: Cranial nerves: Yes Equal, round and reactive pupils present Speech: normal speech Motor exam (neuro): 5/5 motor strength present throughout Sensory Exam: normal sensation Other: A&O x4, generalized weakness Extrem: General: normal to inspection Psych: Mental Status: mental status grossly normal Affect: normal affect Other: Good insight and judgment, very pleasant Objective Data Vital Signs Vital Signs: Vital Signs - 24 hr 02/05/25 14:49 02/05/25 14:59 02/05/25 15:09 Temperature Pulse Rate 89 88 82 Respiratory Rate 18 16 16 Blood Pressure 106/55 L 101/53 L 112/52 L Pulse Oximetry 99 99 100 Oxygen Delivery Room Air Room Air Room Air 02/05/25 16:00 02/05/25 16:00 02/05/25 20:00 Temperature 97.3 F L 97.0 F L Pulse Rate 87 83 99 Respiratory Rate 16 17 Blood Pressure 105/63 110/49 L Pulse Oximetry 98 99 Oxygen Delivery 02/05/25 20:00 02/06/25 00:00 02/06/25 00:00 Temperature 97.7 F Pulse Rate 93 91 91 Respiratory Rate 20 Blood Pressure 133/66 Pulse Oximetry 99 Oxygen Delivery 02/06/25 04:00 02/06/25 04:00 02/06/25 07:30 Temperature 97.1 F L Pulse Rate 87 97 79 Respiratory Rate 20 16 Blood Pressure 120/57 L Pulse Oximetry 98 Oxygen Delivery 02/06/25 08:00 02/06/25 12:00 Temperature Pulse Rate 150 H 107 H Respiratory Rate Blood Pressure Pulse Oximetry Oxygen Delivery Intake/Output Intake/Output: Intake & Output 02/03/25 02/04/25 02/05/25 02/06/25 23:59 23:59 23:59 23:59 Intake Total 750 740 480 Balance 750 740 480 Meds/Results Medications: Active Medications Generic Name Dose Route Start Last Admin Trade Name Freq PRN Reason Stop Dose Admin Albuterol 1 puff 02/04/25 23:17 Albuterol Sulfate (*Sp) Aerosol 1 Puff INHALATION Q4HRT PRN shortness of breath or wheezing Dicyclomine HCl 20 mg 02/04/25 19:10 Dicyclomine Hcl 10 Mg Capsule PO TID PRN ABD PAIN Filgrastim-Sndz 300 mcg 02/05/25 09:00 02/06/25 10:12 Filgrastim-Sndz 300 Mcg/0.5 Ml Syringe SUB-Q 300 mcg DAILY MARINO Administration Fluticasone Propionate 1 spray 02/05/25 09:00 02/06/25 09:48 Fluticasone Propionate 0.05% Na Spr 16 Gm Btl (*Bkc) NASAL 1 spray DAILY MARINO Administration Gabapentin 600 mg 02/04/25 22:00 02/06/25 13:48 Gabapentin 300 Mg Capsule PO 600 mg Q8HR MARINO Administration Heparin Sodium (Beef Lung) 50 units 02/06/25 09:00 02/06/25 09:48 Heparin Flush 50 Units/5 Ml Syringe IV PUSH 50 units QAM MARINO Administration Heparin Sodium (Beef Lung) 50 units 02/06/25 06:39 Heparin Flush 50 Units/5 Ml Syringe IV PUSH PRN PRN after intermittent infusion Heparin Sodium (Beef Lung) 50 units 02/06/25 06:39 Heparin Flush 50 Units/5 Ml Syringe IV PUSH PRN PRN after blood draws Heparin Sodium (Porcine) 500 units 02/06/25 06:39 Heparin Sodium Lock Flush 500 Units/5 Ml Syringe IV PUSH PRN PRN see comments below Meclizine HCl 25 mg 02/05/25 09:00 02/06/25 13:48 Meclizine Hcl 25 Mg Tablet PO 25 mg TID MARINO Administration Simethicone 0.6 ml 02/05/25 14:03 02/05/25 14:03 Simethicone Oral Suspension 20 Mg/0.3 Ml 30 Ml Bottle PO 1.8 ml ONCE PRN Administration Gas Discomfort Simvastatin 5 mg 02/05/25 09:00 02/06/25 09:48 Simvastatin 5 Mg Tablet PO 5 mg DAILY MARINO Administration Sodium Chloride 10 ml 02/05/25 06:00 02/06/25 13:48 Central Line Flush IV PUSH 10 ml Q8HR MARINO Administration Sodium Chloride 20 ml 02/04/25 23:13 Central Line Flush IV PUSH PRN PRN after blood draws Tramadol HCl 50 mg 02/04/25 19:10 Tramadol Hcl (*Crx) 50 Mg Tablet PO Q6H PRN Pain Umeclidinium/Vilanterol 1 puff 02/05/25 08:00 02/06/25 07:29 Umeclidinium/Vilanterol 62.5-25 Mcg Ellipta INHALATION 1 puff DAILYRT MARINO Administration Radiology Results: ITS Impressions Abdomen/Pelvis CT 02/04/25 14:29 IMPRESSION: 1. No acute surgical abnormality identified. Fluid in the small and large bowel may represent inflammatory or infectious enteritis with diarrhea process. 2. Slight decreased size of liver masses and perirectal lymphadenopathy suggesting some positive response to treatment. 3. Small pericardial effusion on today's exam. Labs Labs: Laboratory Results - last 24 hr 02/05/25 02/06/25 02/06/25 17:38 00:21 05:16 Hgb 7.3 L 7.9 L 8.1 L Hct 22.2 L 24.1 L 24.8 L 02/06/25 12:01 Hgb 8.4 L Hct 25.4 L Quality VTE Prophylaxis VTE prophylaxis: mechanical ordered
[2025-02-06 15:21] LABS: Hematocrit 25.7 % (37.0-47.0); Hemoglobin 8.5 g/dL (12.0-15.0)
[2025-02-06] MEDS: traMADol HCL (*CRX) 50 MG TABLET PO (17:23)
[2025-02-06 19:24] LABS: Hematocrit 23.1 % (37.0-47.0); Hemoglobin 7.5 g/dL (12.0-15.0)
[2025-02-07] VITALS (13 sets, daily range): BP systolic 108–122; BP diastolic 50–69; PULSE 76–123; RESP 16–20; TEMP 36.3–37.3; O2SAT 95–99
[2025-02-07] MEDS: traMADol HCL (*CRX) 50 MG TABLET PO ×2 (00:05→09:23)
[2025-02-07] MEDS: GABAPENTIN 300 MG CAPSULE 600 MG PO ×3 (05:43→22:23)
[2025-02-07] MEDS: CENTRAL LINE FLUSH 10 ML IV PUSH ×2 (05:45→14:51)
[2025-02-07 06:04] LABS: Hematocrit 25.5 % (37.0-47.0); Hemoglobin 8.4 g/dL (12.0-15.0)
[2025-02-07] MEDS: UMECLIDINIUM/VILANTEROL 62.5-25 MCG ELLIPTA 1 PUFF INHALATION (07:55)
[2025-02-07] MEDS: SIMVASTATIN 5 MG TABLET PO (09:10)
[2025-02-07] MEDS: FLUTICASONE PROPIONATE 0.05% NA SPR 16 GM BTL (*BKC) 1 SPRAY NASAL (09:10)
[2025-02-07] MEDS: MECLIZINE HCL 25 MG TABLET PO ×3 (09:10→17:26)
[2025-02-07] MEDS: FILGRASTIM-SNDZ 300 MCG/0.5 ML SYRINGE SUB-Q (09:22)
--- NOTE | 2025-02-07 14:35 | PM.IMPN2 ---
Assessment and Plan Assessment and Plan (1) Rectal bleeding: Code(s): K62.5 - Hemorrhage of anus and rectum Status: Acute Assessment and Plan: Patient reporting at dark tarry stools for the past 2 months, however did report to the ER physician it is only been the past week. Has been feeling generally weak for the last 3 weeks, worsened in the last few days. Past medical history significant for metastatic colon cancer. Has undergone chemotherapy treatments x2. Noted to be anemic during her previous oncology visit on 01/19. Started on iron/B12. Hemoglobin reduced compared to previous. 8.0 on 02/02, now 7.3 on 02/04. Arrived tachycardic in the 120s and blood pressure soft. Given abnormal vital signs and hemoglobin level, patient has 1 unit of PRBC ordered. - transfuse 1 unit of PRBC, 02/04. Repeat H&H 1 hour post transfusion, currently scheduled for 11:00 p.m. >> assessment this evening around 6:00 p.m. showed patient to have good color and heart rate/blood pressure improved with 3/4 of the blood transfusion completed. - GI consulted, per ED provider spoke with the on-call client service consultant they plan for patient to be NPO at midnight and undergo an EGD tomorrow - trend hemoglobin, transfuse if less than 7 - continue iron and B12 - start pantoprazole b.i.d. - monitor hemodynamic stability egd yesterday- Patient does not have evidence of upper GI bleeding. She has been recently started on iron pills, which probably explains the dark black color of her stools. Anemia is probably likely to current chemotherapy. Suggest conservative approach, and constant evaluation by Oncology. (2) Colon cancer: Qualifiers: Colon location: sigmoid Qualified Code(s): C18.7 - Malignant neoplasm of sigmoid colon Code(s): C18.9 - Malignant neoplasm of colon, unspecified Status: Acute Assessment and Plan: History of metastatic colon cancer with four masses to the liver. Currently undergoing palliative chemotherapy. Has received 2 treatments thus far. Last saw her oncologist, Dr. Godinez, on 01/19. She was started on iron and B12 as she was noted to be anemic and chemotherapy was reduced by 10%. Patient was also started on Neupogen 4 chemotherapy-induced neutropenia prophylaxis. Noted today to be anemic with a WBC of 2.2. Platelet count within normal limits. - oncology consulted - reporting poor appetite for the past 1-2 weeks, likely related to chemotherapy. Dietitian consulted for assistance with nutrition. (3) Metastasis to liver: Code(s): C78.7 - Secondary malignant neoplasm of liver and intrahepatic bile duct Status: Acute Assessment and Plan: - see above (4) Chemotherapy induced neutropenia: Code(s): D70.1 - Agranulocytosis secondary to cancer chemotherapy; T45.1X5A - Adverse effect of antineoplastic and immunosuppressive drugs, initial encounter Status: Acute Assessment and Plan: Started on Neupogen at her last oncology appointment on 01/19. WBC 13.3 (01/19) -> 1.4 (02/02) -> 2.2 (02/04). - oncology consulted (5) Asthma-COPD overlap syndrome: Code(s): J44.89 - Other specified chronic obstructive pulmonary disease Status: Chronic Assessment and Plan: No current evidence of exacerbation. Stable. - continue home medications: Anoro, fluticasone, albuterol (6) Hypertension: Qualifiers: Hypertension type: primary hypertension Qualified Code(s): I10 - Essential (primary) hypertension Code(s): I10 - Essential (primary) hypertension Status: Chronic Assessment and Plan: - chronic, currently 1 to her 47. Arrived with a soft blood pressure. - hold home medications including: Lisinopril 40 mg daily, atenolol 50 mg daily - monitor Plan Diet: Regular, NPO midnight GI Prophylaxis: n/a, however on PPI for GI bleed DVT Prophylaxis: SCDs IV fluids: no IVF, receiving 1u of PRBC Lines/Tubes: pIV Code Status: full code Medical Record Review I have reviewed the following patient records and this information was taken into consideration when formulating the assessment and plan.: previous labs Time Spent With Patient Time with patient: 25 - 35 minutes Subjective Date/time seen: 02/07/25 14:35 Interval history: Pt is seen and examined. She was recently dx with metastatic colon cancer with liver metastasis. reports feeling very weak and unsteady on her feet. denies blood in stool. PT/OT ordered but she has not worked with [facility] yet. Review of Systems Review of Systems: All systems reviewed & are unremarkable except as noted in HPI and below Exam Const: General: comfortable and no acute distress Other: , female, older appearing than stated age HENMT: Face/Nose/Sinus: Normal nares present Mouth: Yes moist mucous membranes Eyes: General: appearance normal, both eyes and all related structures Sclera: sclerae normal Pupils: Equal, round and reactive pupils present EOM: EOMs intact bilaterally Resp: Effort & Inspection: normal respiratory effort Auscultation: clear to auscultation bilaterally Cardio: Rate: regular rate Rhythm: regular rhythm Other: S1-S2 present without murmur, rub, ectopy GI: Other: Abdomen soft, nondistended, nontender. Normoactive bowel sounds in all quadrants. Skin: General skin exam: normal color and no rashes or lesions noted Wounds: no wounds Neuro: Cranial nerves: Yes Equal, round and reactive pupils present Speech: normal speech Motor exam (neuro): 5/5 motor strength present throughout Sensory Exam: normal sensation Other: A&O x4, generalized weakness Extrem: General: normal to inspection Psych: Mental Status: mental status grossly normal Affect: normal affect Other: Good insight and judgment, very pleasant Objective Data Vital Signs Vital Signs: Vital Signs - 24 hr 02/06/25 16:00 02/06/25 20:00 02/06/25 20:00 Temperature Pulse Rate 104 H 104 H 93 Respiratory Rate 18 Blood Pressure Pulse Oximetry 98 Oxygen Delivery Room Air 02/06/25 20:00 02/07/25 00:00 02/07/25 00:00 Temperature 98.0 F 98.2 F Pulse Rate 97 94 94 Respiratory Rate 20 18 Blood Pressure 119/64 122/64 Pulse Oximetry 99 98 Oxygen Delivery 02/07/25 04:00 02/07/25 04:00 02/07/25 07:55 Temperature 97.4 F L Pulse Rate 91 87 85 Respiratory Rate 18 16 Blood Pressure 120/69 Pulse Oximetry 97 Oxygen Delivery 02/07/25 08:00 02/07/25 08:50 02/07/25 08:50 Temperature 97.7 F Pulse Rate 123 H 123 H 123 H Respiratory Rate 20 20 Blood Pressure 115/60 Pulse Oximetry 99 99 Oxygen Delivery Room Air 02/07/25 12:00 02/07/25 12:30 Temperature 97.9 F Pulse Rate 98 82 Respiratory Rate 18 Blood Pressure 114/61 Pulse Oximetry 98 Oxygen Delivery Intake/Output Intake/Output: Intake & Output 12/17/02/05/25 02/06/25 02/07/25 23:59 23:59 23:59 23:59 Intake Total 284 519 6667 600 Balance 771 222 5746 600 Meds/Results Medications: Active Medications Generic Name Dose Route Start Last Admin Trade Name Freq PRN Reason Stop Dose Admin Albuterol 1 puff 02/04/25 23:17 Albuterol Sulfate (*Sp) Aerosol 1 Puff INHALATION Q4HRT PRN shortness of breath or wheezing Dicyclomine HCl 20 mg 02/04/25 19:10 Dicyclomine Hcl 10 Mg Capsule PO TID PRN ABD PAIN Filgrastim-Sndz 300 mcg 02/05/25 09:00 02/07/25 09:22 Filgrastim-Sndz 300 Mcg/0.5 Ml Syringe SUB-Q 300 mcg DAILY MARINO Administration Fluticasone Propionate 1 spray 02/05/25 09:00 02/07/25 09:10 Fluticasone Propionate 0.05% Na Spr 16 Gm Btl (*Bkc) NASAL 1 spray DAILY MARINO Administration Gabapentin 600 mg 02/04/25 22:00 02/07/25 05:43 Gabapentin 300 Mg Capsule PO 600 mg Q8HR MARINO Administration Heparin Sodium (Beef Lung) 50 units 02/06/25 09:00 02/07/25 09:10 Heparin Flush 50 Units/5 Ml Syringe IV PUSH 50 units QAM MARINO Administration Heparin Sodium (Beef Lung) 50 units 02/06/25 06:39 Heparin Flush 50 Units/5 Ml Syringe IV PUSH PRN PRN after intermittent infusion Heparin Sodium (Beef Lung) 50 units 02/06/25 06:39 Heparin Flush 50 Units/5 Ml Syringe IV PUSH PRN PRN after blood draws Heparin Sodium (Porcine) 500 units 02/06/25 06:39 Heparin Sodium Lock Flush 500 Units/5 Ml Syringe IV PUSH PRN PRN see comments below Meclizine HCl 25 mg 02/05/25 09:00 02/07/25 12:30 Meclizine Hcl 25 Mg Tablet PO 25 mg TID MARINO Administration Simethicone 0.6 ml 02/05/25 14:03 02/05/25 14:03 Simethicone Oral Suspension 20 Mg/0.3 Ml 30 Ml Bottle PO 1.8 ml ONCE PRN Administration Gas Discomfort Simvastatin 5 mg 02/05/25 09:00 02/07/25 09:10 Simvastatin 5 Mg Tablet PO 5 mg DAILY MARINO Administration Sodium Chloride 10 ml 02/05/25 06:00 02/07/25 05:45 Central Line Flush IV PUSH 10 ml Q8HR MARINO Administration Sodium Chloride 20 ml 02/04/25 23:13 Central Line Flush IV PUSH PRN PRN after blood draws Tramadol HCl 50 mg 02/04/25 19:10 02/07/25 09:23 Tramadol Hcl (*Crx) 50 Mg Tablet PO 50 mg Q6H PRN Administration Pain Umeclidinium/Vilanterol 1 puff 02/05/25 08:00 02/07/25 07:55 Umeclidinium/Vilanterol 62.5-25 Mcg Ellipta INHALATION 1 puff DAILYRT MARINO Administration Radiology Results: ITS Impressions Abdomen/Pelvis CT 02/04/25 14:29 IMPRESSION: 1. No acute surgical abnormality identified. Fluid in the small and large bowel may represent inflammatory or infectious enteritis with diarrhea process. 2. Slight decreased size of liver masses and perirectal lymphadenopathy suggesting some positive response to treatment. 3. Small pericardial effusion on today's exam. Labs Labs: Laboratory Results - last 24 hr 02/06/25 02/06/25 02/07/25 15:09 19:19 05:46 Hgb 8.5 L 7.5 L 8.4 L Hct 25.7 L 23.1 L 25.5 L Quality VTE Prophylaxis VTE prophylaxis: mechanical ordered
--- NOTE | 2025-02-07 17:27 | PC.NURSE ---
Late entry when up with PT/OT hr went up yp 140-150's and when returned to bed back to baseline 80-s to 90's. no symptoms except little winded. resting well at this time.
[2025-02-07] MEDS: ALBUTEROL SULFATE (*SP) AEROSOL 1 PUFF INHALATION (20:46)
[2025-02-08] VITALS: BP 122/56; PULSE 89; PULSE 91; RESP 18; TEMP 36.2; O2SAT 96
[2025-02-08] MEDS: CENTRAL LINE FLUSH 10 ML IV PUSH ×3 (01:50→11:15)
[2025-02-08] MEDS: PANTOPRAZOLE 40 MG TABLET PO ×3 (02:11→21:37)
[2025-02-08 04:00] VITALS: BP 118/53; PULSE 102; PULSE 89; RESP 16; TEMP 36.5; O2SAT 97
[2025-02-08] MEDS: GABAPENTIN 300 MG CAPSULE 600 MG PO ×3 (05:54→21:37)
[2025-02-08 08:00] VITALS: BP 114/62; PULSE 110; RESP 18; TEMP 36.3; O2SAT 97
[2025-02-08] MEDS: SIMVASTATIN 5 MG TABLET PO (10:07)
[2025-02-08] MEDS: MECLIZINE HCL 25 MG TABLET PO ×3 (10:07→16:50)
[2025-02-08] MEDS: FILGRASTIM-SNDZ 300 MCG/0.5 ML SYRINGE SUB-Q (10:08)
[2025-02-08] MEDS: FLUTICASONE PROPIONATE 0.05% NA SPR 16 GM BTL (*BKC) 1 SPRAY NASAL (10:08)
[2025-02-08] MEDS: ONDANSETRON INJ 4 MG/2 ML VIAL IV PUSH (11:15)
--- NOTE | 2025-02-08 11:28 | PM.IMPN2 ---
Assessment and Plan Assessment and Plan (1) Rectal bleeding: Code(s): K62.5 - Hemorrhage of anus and rectum Status: Acute Assessment and Plan: Patient reporting at dark tarry stools for the past 2 months, however did report to the ER physician it is only been the past week. Has been feeling generally weak for the last 3 weeks, worsened in the last few days. Past medical history significant for metastatic colon cancer. Has undergone chemotherapy treatments x2. Noted to be anemic during her previous oncology visit on 01/19. Started on iron/B12. Hemoglobin reduced compared to previous. 8.0 on 02/02, now 7.3 on 02/04. Arrived tachycardic in the 120s and blood pressure soft. Given abnormal vital signs and hemoglobin level, patient has 1 unit of PRBC ordered. - transfuse 1 unit of PRBC, 02/04. Repeat H&H 1 hour post transfusion, currently scheduled for 11:00 p.m. >> assessment this evening around 6:00 p.m. showed patient to have good color and heart rate/blood pressure improved with 3/4 of the blood transfusion completed. - GI consulted, per ED provider spoke with the on-call natural gas treating unit operator they plan for patient to be NPO at midnight and undergo an EGD tomorrow - trend hemoglobin, transfuse if less than 7 - continue iron and B12 - start pantoprazole b.i.d. - monitor hemodynamic stability egd yesterday- Patient does not have evidence of upper GI bleeding. She has been recently started on iron pills, which probably explains the dark black color of her stools. Anemia is probably likely to current chemotherapy. Suggest conservative approach, and constant evaluation by Oncology. 02/08- no reports of bleeding. hg remains stable. (2) Colon cancer: Qualifiers: Colon location: sigmoid Qualified Code(s): C18.7 - Malignant neoplasm of sigmoid colon Code(s): C18.9 - Malignant neoplasm of colon, unspecified Status: Acute Assessment and Plan: History of metastatic colon cancer with four masses to the liver. Currently undergoing palliative chemotherapy. Has received 2 treatments thus far. Last saw her oncologist, Dr. Godinez, on 01/19. She was started on iron and B12 as she was noted to be anemic and chemotherapy was reduced by 10%. Patient was also started on Neupogen 4 chemotherapy-induced neutropenia prophylaxis. Noted today to be anemic with a WBC of 2.2. Platelet count within normal limits. - oncology consulted - reporting poor appetite for the past 1-2 weeks, likely related to chemotherapy. Dietitian consulted for assistance with nutrition. (3) Metastasis to liver: Code(s): C78.7 - Secondary malignant neoplasm of liver and intrahepatic bile duct Status: Acute Assessment and Plan: - see above (4) Chemotherapy induced neutropenia: Code(s): D70.1 - Agranulocytosis secondary to cancer chemotherapy; T45.1X5A - Adverse effect of antineoplastic and immunosuppressive drugs, initial encounter Status: Acute Assessment and Plan: Started on Neupogen at her last oncology appointment on 01/19. WBC 13.3 (01/19) -> 1.4 (02/02) -> 2.2 (02/04). - oncology consulted (5) Asthma-COPD overlap syndrome: Code(s): J44.89 - Other specified chronic obstructive pulmonary disease Status: Chronic Assessment and Plan: No current evidence of exacerbation. Stable. - continue home medications: Anoro, fluticasone, albuterol (6) Hypertension: Qualifiers: Hypertension type: primary hypertension Qualified Code(s): I10 - Essential (primary) hypertension Code(s): I10 - Essential (primary) hypertension Status: Chronic Assessment and Plan: - chronic, currently 1 to her 48. Arrived with a soft blood pressure. - hold home medications including: Lisinopril 40 mg daily, atenolol 50 mg daily - monitor Plan Based on pt/ot recommendations, will anticipate discharge in the next few days Diet: Regular GI Prophylaxis: n/a, however on PPI for GI bleed DVT Prophylaxis: SCDs IV fluids: no IVF, receiving 1u of PRBC Lines/Tubes: pIV Code Status: full code Medical Record Review I have reviewed the following patient records and this information was taken into consideration when formulating the assessment and plan.: previous labs Time Spent With Patient Time with patient: 25 - 35 minutes Subjective Date/time seen: 02/08/25 11:28 Interval history: Pt is seen and examined. She was recently dx with metastatic colon cancer with liver metastasis. reports feeling very weak and unsteady on her feet. denies blood in stool. Worked with PT/OT. Care coordination follwoing for discharge needs. Review of Systems Review of Systems: All systems reviewed & are unremarkable except as noted in HPI and below Exam Const: General: comfortable and no acute distress Other: , female, older appearing than stated age HENMT: Face/Nose/Sinus: Normal nares present Mouth: Yes moist mucous membranes Eyes: General: appearance normal, both eyes and all related structures Sclera: sclerae normal Pupils: Equal, round and reactive pupils present EOM: EOMs intact bilaterally Resp: Effort & Inspection: normal respiratory effort Auscultation: clear to auscultation bilaterally Cardio: Rate: regular rate Rhythm: regular rhythm Other: S1-S2 present without murmur, rub, ectopy GI: Other: Abdomen soft, nondistended, nontender. Normoactive bowel sounds in all quadrants. Skin: General skin exam: normal color and no rashes or lesions noted Wounds: no wounds Neuro: Cranial nerves: Yes Equal, round and reactive pupils present Speech: normal speech Motor exam (neuro): 5/5 motor strength present throughout Sensory Exam: normal sensation Other: A&O x4, generalized weakness Extrem: General: normal to inspection Psych: Mental Status: mental status grossly normal Affect: normal affect Other: Good insight and judgment, very pleasant Objective Data Vital Signs Vital Signs: Vital Signs - 24 hr 02/07/25 12:00 02/07/25 12:05 02/07/25 12:30 Temperature 97.9 F Pulse Rate 98 123 H 82 Respiratory Rate 18 Blood Pressure 114/61 Pulse Oximetry 98 Oxygen Delivery Fraction of Inspired Oxygen 02/07/25 16:00 02/07/25 16:01 02/07/25 20:00 Temperature 99.2 F 98.2 F Pulse Rate 76 100 103 H Respiratory Rate 16 20 Blood Pressure 108/50 L 109/60 Pulse Oximetry 98 98 Oxygen Delivery Fraction of Inspired Oxygen 02/07/25 20:00 02/07/25 20:48 02/07/25 20:49 Temperature Pulse Rate 102 H 80 80 Respiratory Rate 16 16 Blood Pressure Pulse Oximetry 95 Oxygen Delivery Room Air Fraction of Inspired Oxygen 21 02/08/25 00:00 02/08/25 00:00 02/08/25 04:00 Temperature 97.2 F L Pulse Rate 89 91 89 Respiratory Rate 18 Blood Pressure 122/56 L Pulse Oximetry 96 Oxygen Delivery Fraction of Inspired Oxygen 02/08/25 04:00 02/08/25 08:00 Temperature 97.7 F 97.3 F L Pulse Rate 102 H 110 H Respiratory Rate 16 18 Blood Pressure 118/53 L 114/62 Pulse Oximetry 97 97 Oxygen Delivery Fraction of Inspired Oxygen Intake/Output Intake/Output: Intake & Output 02/05/25 02/06/25 02/07/25 02/08/25 23:59 23:59 23:59 23:59 Intake Total 740 1210 1100 200 Balance 740 1210 1100 200 Meds/Results Medications: Active Medications Generic Name Dose Route Start Last Admin Trade Name Freq PRN Reason Stop Dose Admin Albuterol 1 puff 02/04/25 23:17 02/07/25 20:46 Albuterol Sulfate (*Sp) Aerosol 1 Puff INHALATION 1 puff Q4HRT PRN Administration shortness of breath or wheezing Dicyclomine HCl 20 mg 02/04/25 19:10 Dicyclomine Hcl 10 Mg Capsule PO TID PRN ABD PAIN Filgrastim-Sndz 300 mcg 02/05/25 09:00 02/08/25 10:08 Filgrastim-Sndz 300 Mcg/0.5 Ml Syringe SUB-Q 300 mcg DAILY MARINO Administration Fluticasone Propionate 1 spray 02/05/25 09:00 02/08/25 10:08 Fluticasone Propionate 0.05% Na Spr 16 Gm Btl (*Bkc) NASAL 1 spray DAILY MARINO Administration Gabapentin 600 mg 02/04/25 22:00 02/08/25 05:54 Gabapentin 300 Mg Capsule PO 600 mg Q8HR MARINO Administration Heparin Sodium (Beef Lung) 50 units 02/06/25 09:00 02/08/25 10:08 Heparin Flush 50 Units/5 Ml Syringe IV PUSH 50 units QAM MARINO Administration Heparin Sodium (Beef Lung) 50 units 02/06/25 06:39 Heparin Flush 50 Units/5 Ml Syringe IV PUSH PRN PRN after intermittent infusion Heparin Sodium (Beef Lung) 50 units 02/06/25 06:39 Heparin Flush 50 Units/5 Ml Syringe IV PUSH PRN PRN after blood draws Heparin Sodium (Porcine) 500 units 02/06/25 06:39 Heparin Sodium Lock Flush 500 Units/5 Ml Syringe IV PUSH PRN PRN see comments below Meclizine HCl 25 mg 02/05/25 09:00 02/08/25 10:07 Meclizine Hcl 25 Mg Tablet PO 25 mg TID MARINO Administration Ondansetron HCl 4 mg 02/08/25 10:42 02/08/25 11:15 Ondansetron Inj 4 Mg/2 Ml Vial IV PUSH 4 mg Q4H PRN Administration Nausea And Vomiting Pantoprazole Sodium 40 mg 02/07/25 23:05 02/08/25 10:08 Pantoprazole 40 Mg Tablet PO 40 mg Q12HR MARINO Administration Simethicone 0.6 ml 02/05/25 14:03 02/05/25 14:03 Simethicone Oral Suspension 20 Mg/0.3 Ml 30 Ml Bottle PO 1.8 ml ONCE PRN Administration Gas Discomfort Simvastatin 5 mg 02/05/25 09:00 02/08/25 10:07 Simvastatin 5 Mg Tablet PO 5 mg DAILY MARINO Administration Sodium Chloride 10 ml 02/05/25 06:00 02/08/25 11:15 Central Line Flush IV PUSH 10 ml Q8HR MARINO Administration Sodium Chloride 20 ml 02/04/25 23:13 Central Line Flush IV PUSH PRN PRN after blood draws Tramadol HCl 50 mg 02/04/25 19:10 02/07/25 09:23 Tramadol Hcl (*Crx) 50 Mg Tablet PO 50 mg Q6H PRN Administration Pain Umeclidinium/Vilanterol 1 puff 02/05/25 08:00 02/07/25 07:55 Umeclidinium/Vilanterol 62.5-25 Mcg Ellipta INHALATION 1 puff DAILYRT MARINO Administration Radiology Results: ITS Impressions Abdomen/Pelvis CT 02/04/25 14:29 IMPRESSION: 1. No acute surgical abnormality identified. Fluid in the small and large bowel may represent inflammatory or infectious enteritis with diarrhea process. 2. Slight decreased size of liver masses and perirectal lymphadenopathy suggesting some positive response to treatment. 3. Small pericardial effusion on today's exam. Quality VTE Prophylaxis VTE prophylaxis: mechanical ordered
[2025-02-08 12:00] VITALS: BP 111/47; PULSE 89; PULSE 95; RESP 20; TEMP 36.4; O2SAT 99
--- NOTE | 2025-02-08 12:05 | PCRCNOTE ---
Window of time for administration has passed. See next scheduled administration.
[2025-02-08 16:00] VITALS: BP 133/70; PULSE 108; PULSE 92; RESP 20; TEMP 36.1; O2SAT 99
[2025-02-08 20:00] VITALS: BP 109/54; PULSE 106; RESP 18; TEMP 37.1; O2SAT 97
[2025-02-09] MEDS: traMADol HCL (*CRX) 50 MG TABLET PO (00:17)
[2025-02-09 04:00] VITALS: BP 119/64; PULSE 96; RESP 18; TEMP 37.1; O2SAT 96
[2025-02-09] MEDS: GABAPENTIN 300 MG CAPSULE 600 MG PO ×3 (06:10→21:34)
[2025-02-09 06:34] LABS: Hematocrit 23.6 % (37.0-47.0); Hemoglobin 7.5 g/dL (12.0-15.0); Mean Corpuscular HGB Conc 31.8 g/dl (32-36); Mean Corpuscular Hemoglobin 28.1 pg (26-34); Mean Corpuscular Volume 88.4 fl (80-100); Platelet Count Result 226 k/mm3 (150-375); Red Blood Count 2.67 M/mm3 (4.2-5.4)
--- NOTE | 2025-02-09 06:34 | PC.NURSE ---
2300: Pt tachycardic in 140s-150s (Sinus tachy) with ambulation to the bathroom; denies symptoms.
[2025-02-09 06:38] LABS: White Blood Count 56.9 K/mm3 (4.5-10.0)
[2025-02-09 06:52] LABS: Alanine Aminotransferase 13 U/L (6-35); Albumin Level 2.8 g/dL (3.5-5.1); Alkaline Phosphatase 115 U/L (38-126); Anion Gap 3 mmol/L (4-12); Aspartate Amino Transferase 25 U/L (14-36); Bilirubin,Total 0.3 mg/dL (0.2-1.3); Blood Urea Nitrogen 11 mg/dL (7-17); Calcium 8.4 mg/dL (8.4-10.2); Carbon Dioxide 27 mmol/L (22-30); Chloride 107 mmol/L (98-107); Estimated CRCL calculation 42 ml/min; Estimated Glomerular Filt Rate 58; Glucose 97 mg/dL (65-110); Potassium 3.5 mmol/L (3.4-5.0); Sodium 137 mmol/L (137-145); Total Protein 5.1 g/dL (6.3-8.2)
[2025-02-09 08:00] VITALS: BP 110/50; PULSE 102; PULSE 115; RESP 18; TEMP 36; O2SAT 98
[2025-02-09 09:19] LABS: Band Neutrophils Percent 16 % (0-6); Basophils Absolute Manual 0.56 K/mm3 (0.0-0.1); Basophils Percent Manual 1 % (0-1); Eosinophils Absolute Manual 0.56 K/mm3 (0.02-0.50); Eosinophils Percent Manual 1 % (0-4); Lymphocytes Absolute Manual 23.89 K/mm3 (1.1-4.5); Lymphocytes Percent Manual 42 % (18-44); Monocytes Absolute Manual 5.69 K/mm3 (0.1-0.90); Monocytes Percent Manual 10 % (3-9); Neutrophils Absolute Manual 26.17 K/mm3 (1.3-6.7); Neutrophils Percent Manual 30 % (46-73); Total Cells Counted 100
[2025-02-09 09:20] LABS: Schistocytes None Seen
[2025-02-09] MEDS: MECLIZINE HCL 25 MG TABLET PO ×3 (09:22→17:17)
[2025-02-09] MEDS: SIMVASTATIN 5 MG TABLET PO (09:22)
[2025-02-09] MEDS: PANTOPRAZOLE 40 MG TABLET PO ×2 (09:22→21:34)
[2025-02-09] MEDS: FLUTICASONE PROPIONATE 0.05% NA SPR 16 GM BTL (*BKC) 1 SPRAY NASAL (09:23)
[2025-02-09] MEDS: UMECLIDINIUM/VILANTEROL 62.5-25 MCG ELLIPTA 1 PUFF INHALATION (09:51)
[2025-02-09 09:54] VITALS: PULSE 110; RESP 16
[2025-02-09 12:00] VITALS: BP 129/67; PULSE 117; PULSE 118; RESP 16; TEMP 36.7; O2SAT 98
--- NOTE | 2025-02-09 12:25 | PCNFU ---
Nutrition Follow-Up Complete: Severe protein calorie malnutrition related to poor appetite in the setting of metastatic colon cancer, chemotherapy as evidenced by weight loss 17%/6 months, intakes <75% needs >1 month; severe muscle wasting to temporalis Diet advancement Goal: Tolerate PO diet >50% Patient is meeting goal. No new goal. Pt current nutrition is Low Fiber with Ensure Plus High Protein BID. Last recorded weight is 57 kg, no new weight to report. Bowel Motility: Last BM reported 02/15 Labs Reviewed: Alb 2.8, Hct 23.6, Hgb 7.5 Meds Noted:Protonix. Skin: WNL Additional Notes: Patient is tolerating a Low Fiber diet. Oral Intake 75-90% of meals. Diet supplements BID being providing an additional 350 kcal and 20 gm protein. Agree with diet orders. No further nutritional interventions needed at this time. Monitoring intakes, weights, labs, diet orders, plan of care Follow up in 7 days
--- NOTE | 2025-02-09 13:45 | P.PNIM_ITS ---
Assessment and Plan Assessment and Plan (1) Rectal bleeding: Code(s): K62.5 - Hemorrhage of anus and rectum Status: Acute Assessment and Plan: Patient reporting at dark tarry stools for the past 2 months, however did report to the ER physician it is only been the past week. Has been feeling generally weak for the last 3 weeks, worsened in the last few days. Past medical history significant for metastatic colon cancer. Has undergone chemotherapy treatments x2. Noted to be anemic during her previous oncology visit on 01/19. Started on iron/B12. Hemoglobin reduced compared to previous. 8.0 on 02/02, now 7.3 on 02/04. Arrived tachycardic in the 120s and blood pressure soft. Given abnormal vital signs and hemoglobin level, patient has 1 unit of PRBC ordered. - transfuse 1 unit of PRBC, 02/04. Repeat H&H 1 hour post transfusion, currently scheduled for 11:00 p.m. >> assessment this evening around 6:00 p.m. showed patient to have good color and heart rate/blood pressure improved with 3/4 of the blood transfusion completed. - GI consulted, per ED provider spoke with the on-call engineering group manager they plan for patient to be NPO at midnight and undergo an EGD tomorrow - trend hemoglobin, transfuse if less than 7 - continue iron and B12 - start pantoprazole b.i.d. - monitor hemodynamic stability egd yesterday- Patient does not have evidence of upper GI bleeding. She has been recently started on iron pills, which probably explains the dark black color of her stools. Anemia is probably likely to current chemotherapy. Suggest conservative approach, and constant evaluation by Oncology. 02/08- no reports of bleeding. hg remains stable. (2) Colon cancer: Qualifiers: Colon location: sigmoid Qualified Code(s): C18.7 - Malignant neoplasm of sigmoid colon Code(s): C18.9 - Malignant neoplasm of colon, unspecified Status: Acute Assessment and Plan: History of metastatic colon cancer with four masses to the liver. Currently undergoing palliative chemotherapy. Has received 2 treatments thus far. Last saw her oncologist, Dr. Godinez, on 01/19. She was started on iron and B12 as she was noted to be anemic and chemotherapy was reduced by 10%. Patient was also started on Neupogen 4 chemotherapy-induced neutropenia prophylaxis. Noted today to be anemic with a WBC of 2.2. Platelet count within normal limits. - oncology consulted - reporting poor appetite for the past 1-2 weeks, likely related to chemotherapy. Dietitian consulted for assistance with nutrition. (3) Metastasis to liver: Code(s): C78.7 - Secondary malignant neoplasm of liver and intrahepatic bile duct Status: Acute Assessment and Plan: - see above (4) Chemotherapy induced neutropenia: Code(s): D70.1 - Agranulocytosis secondary to cancer chemotherapy; T45.1X5A - Adverse effect of antineoplastic and immunosuppressive drugs, initial encounter Status: Acute Assessment and Plan: Started on Neupogen at her last oncology appointment on 01/19. WBC 13.3 (01/19) -> 1.4 (02/02) -> 2.2 (02/04). - oncology consulted (5) Asthma-COPD overlap syndrome: Code(s): J44.89 - Other specified chronic obstructive pulmonary disease Status: Chronic Assessment and Plan: No current evidence of exacerbation. Stable. - continue home medications: Anoro, fluticasone, albuterol (6) Hypertension: Qualifiers: Hypertension type: primary hypertension Qualified Code(s): I10 - Essential (primary) hypertension Code(s): I10 - Essential (primary) hypertension Status: Chronic Assessment and Plan: - chronic, currently 1 to her 47. Arrived with a soft blood pressure. - hold home medications including: Lisinopril 40 mg daily, atenolol 50 mg daily - monitor (7) Leukocytosis: Code(s): D72.829 - Elevated white blood cell count, unspecified Status: Acute Assessment and Plan: will collect ua and order chest xray to ensure no uti.pneumonia -oncology following Plan Based on pt/ot recommendations, will anticipate discharge in the next few days Diet: Regular GI Prophylaxis: n/a, however on PPI for GI bleed DVT Prophylaxis: SCDs IV fluids: no IVF, receiving 1u of PRBC Lines/Tubes: pIV Code Status: full code Medical Record Review I have reviewed the following patient records and this information was taken into consideration when formulating the assessment and plan.: previous labs Subjective Date/time seen: 02/09/25 13:45 Interval history: Pt is seen and examined. She was recently dx with metastatic colon cancer with liver metastasis, she is following [facility] dR godinez. NO more blood in stool. Worked with PT/OT. Care coordination following for discharge needs. Review of Systems Review of Systems: All systems reviewed & are unremarkable except as noted in HPI and below Exam Const: General: comfortable and no acute distress Other: , female, older appearing than stated age HENMT: Face/Nose/Sinus: Normal nares present Mouth: Yes moist mucous membranes Eyes: General: appearance normal, both eyes and all related structures Sclera: sclerae normal Pupils: Equal, round and reactive pupils present EOM: EOMs intact bilaterally Resp: Effort & Inspection: normal respiratory effort Auscultation: clear to auscultation bilaterally Cardio: Rate: regular rate Rhythm: regular rhythm Other: S1-S2 present without murmur, rub, ectopy GI: Other: Abdomen soft, nondistended, nontender. Normoactive bowel sounds in all quadrants. Skin: General skin exam: normal color and no rashes or lesions noted Wounds: no wounds Neuro: Cranial nerves: Yes Equal, round and reactive pupils present Speech: normal speech Motor exam (neuro): 5/5 motor strength present throughout Sensory Exam: normal sensation Other: A&O x4, generalized weakness Extrem: General: normal to inspection Psych: Mental Status: mental status grossly normal Affect: normal affect Other: Good insight and judgment, very pleasant Objective Data Vital Signs Vital Signs: Vital Signs - 24 hr 02/08/25 16:00 02/08/25 16:00 02/08/25 20:00 Temperature 96.9 F L 98.7 F Pulse Rate 108 H 92 106 H Respiratory Rate 20 18 Blood Pressure 133/70 109/54 L Pulse Oximetry 99 97 02/09/25 04:00 02/09/25 08:00 02/09/25 09:54 Temperature 98.7 F 96.8 F L Pulse Rate 96 102 H 110 H Respiratory Rate 18 18 16 Blood Pressure 119/64 110/50 L Pulse Oximetry 96 98 02/09/25 12:00 Temperature 98.0 F Pulse Rate 118 H Respiratory Rate 16 Blood Pressure 129/67 Pulse Oximetry 98 Intake/Output Intake/Output: Intake & Output 02/06/25 02/07/25 02/08/25 02/09/25 23:59 23:59 23:59 23:59 Intake Total 1210 1100 800 980 Balance 1210 1100 800 980 Meds/Results Medications: Active Medications Generic Name Dose Route Start Last Admin Trade Name Freq PRN Reason Stop Dose Admin Albuterol 1 puff 02/04/25 23:17 02/07/25 20:46 Albuterol Sulfate (*Sp) Aerosol 1 Puff INHALATION 1 puff Q4HRT PRN Administration shortness of breath or wheezing Dicyclomine HCl 20 mg 02/04/25 19:10 Dicyclomine Hcl 10 Mg Capsule PO TID PRN ABD PAIN Fluticasone Propionate 1 spray 02/05/25 09:00 02/09/25 09:23 Fluticasone Propionate 0.05% Na Spr 16 Gm Btl (*Bkc) NASAL 1 spray DAILY MARINO Administration Gabapentin 600 mg 02/04/25 22:00 02/09/25 06:10 Gabapentin 300 Mg Capsule PO 600 mg Q8HR MARINO Administration Heparin Sodium (Beef Lung) 50 units 02/06/25 09:00 02/09/25 09:22 Heparin Flush 50 Units/5 Ml Syringe IV PUSH 50 units QAM MARINO Administration Heparin Sodium (Beef Lung) 50 units 02/06/25 06:39 Heparin Flush 50 Units/5 Ml Syringe IV PUSH PRN PRN after intermittent infusion Heparin Sodium (Beef Lung) 50 units 02/06/25 06:39 Heparin Flush 50 Units/5 Ml Syringe IV PUSH PRN PRN after blood draws Heparin Sodium (Porcine) 500 units 02/06/25 06:39 Heparin Sodium Lock Flush 500 Units/5 Ml Syringe IV PUSH PRN PRN see comments below Meclizine HCl 25 mg 02/05/25 09:00 02/09/25 12:55 Meclizine Hcl 25 Mg Tablet PO 25 mg TID MARINO Administration Ondansetron HCl 4 mg 02/08/25 10:42 02/08/25 11:15 Ondansetron Inj 4 Mg/2 Ml Vial IV PUSH 4 mg Q4H PRN Administration Nausea And Vomiting Pantoprazole Sodium 40 mg 02/07/25 23:05 02/09/25 09:22 Pantoprazole 40 Mg Tablet PO 40 mg Q12HR MARINO Administration Simethicone 80 mg 02/08/25 21:49 Simethicone 80 Mg Tab.Chew PO QID PRN Gas Discomfort Simvastatin 5 mg 02/05/25 09:00 02/09/25 09:22 Simvastatin 5 Mg Tablet PO 5 mg DAILY MARINO Administration Sodium Chloride 10 ml 02/05/25 06:00 02/09/25 08:06 Central Line Flush IV PUSH Not Given Q8HR MARINO Sodium Chloride 20 ml 02/04/25 23:13 Central Line Flush IV PUSH PRN PRN after blood draws Tramadol HCl 50 mg 02/04/25 19:10 02/09/25 00:17 Tramadol Hcl (*Crx) 50 Mg Tablet PO 50 mg Q6H PRN Administration Pain Umeclidinium/Vilanterol 1 puff 02/05/25 08:00 02/09/25 09:51 Umeclidinium/Vilanterol 62.5-25 Mcg Ellipta INHALATION 1 puff DAILYRT MARINO Administration Radiology Results: ITS Impressions Abdomen/Pelvis CT 02/04/25 14:29 IMPRESSION: 1. No acute surgical abnormality identified. Fluid in the small and large bowel may represent inflammatory or infectious enteritis with diarrhea process. 2. Slight decreased size of liver masses and perirectal lymphadenopathy suggesting some positive response to treatment. 3. Small pericardial effusion on today's exam. Labs Labs: Laboratory Results - last 24 hr 02/04/25 02/09/25 23:02 06:11 WBC 56.9 H* RBC 2.67 L Hgb 7.5 L Hct 23.6 L MCV 88.4 MCH 28.1 MCHC 31.8 L RDW 17.0 H Plt Count 226 MPV 9.9 Immature Gran % (Auto) Not Reportable Neut % (Auto) Not Reportable Lymph % (Auto) Not Reportable [place] % (Auto) Not Reportable Eos % (Auto) Not Reportable Baso % (Auto) Not Reportable Lymph # (Auto) Not Reportable [place] # (Auto) Not Reportable Eos # (Auto) Not Reportable Baso # (Auto) Not Reportable Abs Immat Gran (auto) Not Reportable Absolute Neuts (auto) Not Reportable Absolute Nucleated RBC Not Reportable Total Counted 100 Neutrophils % (Manual) 30 L Band Neutrophils % 16 H Lymphocytes % (Manual) 42 Monocytes % (Manual) 10 H Eosinophils % (Manual) 1 Basophils % (Manual) 1 Nucleated RBC % Not Reportable Abs Neuts (Manual) 26.17 H Abs Lymphs (Manual) 23.89 H Abs Monocytes (Manual) 5.69 H Absolute Eos (Manual) 0.56 H Abs Basophils (Manual) 0.56 H Nucleated RBCs 1 Platelet Estimate Adequate Schistocytes None seen Sodium 137 Potassium 3.5 Chloride 107 Carbon Dioxide 27 Anion Gap 3 L BUN 11 Creatinine 0.97 Estim Creat Clear Calc 42 Estimated GFR 58 L Glucose 97 Calcium 8.4 Niesha Transferrin Receptr 8.2 L Total Bilirubin 0.3 AST 25 ALT 13 Alkaline Phosphatase 115 Total Protein 5.1 L Albumin 2.8 L Quality VTE Prophylaxis VTE prophylaxis: mechanical ordered
[2025-02-09] MEDS: CENTRAL LINE FLUSH 10 ML IV PUSH ×2 (14:14→21:34)
[2025-02-09 16:00] VITALS: BP 126/62; PULSE 102; PULSE 103; RESP 20; TEMP 36.3; O2SAT 97
--- NOTE | 2025-02-09 18:19 | WPDONCCN ---
Assessment and Plan Assessment and plan (1) Leukocytosis: Code(s): D72.829 - Elevated white blood cell count, unspecified Status: Acute Plan Vianca West is a 64 year old female who is admitted for sever fatigue, melena after chemotherapy. she has metastatic colon cancer status post colonoscopy and biopsy done on November 19, 2024. PET scan done in November showed wall thickening of the rectosigmoid area with perirectal lymphadenopathy and liver metastases. She started palliative chemotherapy with FOLFOX Avastin regimen on December 22 and received cycle 2. With 10% dose reduction on January 19. Patient received Neupogen on February 02 and was supposed to get another shot of Neupogen today but got admitted to the hospital with generalized weakness. She has been receiving neupogen while inpatient until yesterday and her WBC today is > 50K. Oncology was re-consulted for management of leucocytosis. CT scan of the abdomen showed no acute surgical abnormality. There was fluid in the small/large bowel may represent inflammatory infectious enteritis. Labs showed anemia and thrombocytopenia. Leucocytosis: - Hold Neupogen and monitor - Agree with infectious work up - Check LDH, haptoglobin, peripheral smear - Will c/t follow along Melena: - Appreciatie GI recs on colonoscopy - Normal B12 and folate levels HPI Data of Consult Date/Time: 02/09/25 18:19 Requesting Physician: Kian Michel MD Primary Care Provider: Caleb Forman, PA Consult Narrative Narrative: Vianca West is a 64 year old female who is admitted for sever fatigue, melena after chemotherapy. she has metastatic colon cancer status post colonoscopy and biopsy done on November 19, 2024. PET scan done in November showed wall thickening of the rectosigmoid area with perirectal lymphadenopathy and liver metastases. She started palliative chemotherapy with FOLFOX Avastin regimen on December 22 and received cycle 2. With 10% dose reduction on January 19. Patient received Neupogen on February 02 and was supposed to get another shot of Neupogen today but got admitted to the hospital with generalized weakness. She has been receiving neupogen while inpatient until yesterday and her WBC today is > 50K. Oncology was re-consulted for management of leucocytosis. She has been complaining of dark stool. Denies any nausea vomiting. No abdominal pain. CT scan of the abdomen showed no acute surgical abnormality. There was fluid in the small/large bowel may represent inflammatory infectious enteritis. Labs showed anemia and thrombocytopenia. She is quite tired and fatigued. She is taking oral iron once a day. Review of Systems Constitutional: Constitutional: Reports chills, Reports lethargy and Reports weakness Cardiovascular: Cardiovascular: Reports rapid heart rate and Reports dyspnea on exertion Respiratory: Respiratory: Reports chest congestion and Reports cough Gastrointestinal: Gastrointestinal: Reports melena PMFSH Past Medical History Medical History COPD (chronic obstructive pulmonary disease) Asthma Hypertension HLD (hyperlipidemia) Chemotherapy induced neutropenia Colon cancer Smoker Nausea and vomiting in adult Weight loss Rectal bleeding Family History Family History Father Asthma Diabetes mellitus Hypertension Heart disease Cerebrovascular accident Social History Social History Smoking packs per day: 1 Smoking cigarettes per day: 20.0 Years smoked: 40 Smoking pack-years: 40.00 Smoking status: Former smoker Tobacco type: cigarettes Smoking end date: 11/19/24 Alcohol intake: never Alcohol use details: NONE in two years Substance use: never Substance use type: does not use Other substance usage details: smoke it every other day and takes Tramadol often for knee pain Last use: 2 days ago Lack of Transportation: No Lack of Food: Never True Current Housing: I Have Housing Concerned About Future Housing: No Difficulty Paying Gas/Electric Bills: No Difficulty Paying for Meds: No Currently Unemployed: No Education: High School Diploma/GED Difficulty w/ Childcare or Family Care: No Living arrangements: with family Additional living arrangements comments: Fiance Spiritual care concerns: No Meds Home Medications and Allergies Home Medications ?Medication ?Instructions ?Recorded ?Confirmed ?Type albuterol sulfate 90 mcg/actuation 1 inh inhalation Q4-6H PRN 11/12/24 02/04/25 History breath activated powder inhaler shortness of breath or wheezing famotidine 20 mg tablet 20 mg PO DAILY 11/12/24 02/04/25 History fluticasone propionate 50 1 spray intranasal DAILY 11/12/24 02/04/25 History mcg/actuation nasal spray,suspension lisinopril 40 mg tablet 40 mg PO DAILY 11/12/24 02/04/25 History meclizine 25 mg tablet 25 mg PO TID 11/12/24 02/04/25 History nitroglycerin 0.4 mg sublingual 0.4 mg sublingual Q5M PRN chest 11/12/24 02/04/25 History tablet pain simvastatin 5 mg tablet 5 mg PO DAILY 11/12/24 02/04/25 History tramadol 50 mg tablet 50 mg PO Q6H PRN pain 11/12/24 02/04/25 History atenolol 50 mg tablet 50 mg PO DAILY 11/18/24 02/04/25 History gabapentin 600 mg tablet 600 mg PO Q8H 12/10/24 02/04/25 History umeclidinium 62.5 mcg-vilanterol 1 inh inhalation Q24H 12/10/24 02/04/25 History 25 mcg/actuation powdr for inhalation (Anoro Ellipta) dicyclomine 20 mg tablet See Rx Instructions .Route 12/15/24 02/04/25 Rx .COMPLEX #90 tabs alprazolam 0.5 mg tablet (Xanax) 0.25 mg PO TID 12/19/24 02/04/25 History Allergies Allergy/AdvReac Type Severity Reaction Status Date / Time No Known Allergies Allergy Verified 02/04/25 17:35 Vital Signs Vital Signs - 24 hr 02/08/25 20:00 02/09/25 04:00 02/09/25 08:00 Temperature 37.1 C 37.1 C 36.0 C L Pulse Rate 106 H 96 102 H Respiratory Rate 18 18 18 Blood Pressure 109/54 L 119/64 110/50 L Pulse Oximetry 97 96 98 Oxygen Delivery 02/09/25 08:00 02/09/25 09:25 02/09/25 09:54 Temperature Pulse Rate 115 H 110 H Respiratory Rate 16 Blood Pressure Pulse Oximetry Oxygen Delivery Room Air 02/09/25 12:00 02/09/25 12:00 02/09/25 16:00 Temperature 36.7 C Pulse Rate 118 H 117 H 102 H Respiratory Rate 16 Blood Pressure 129/67 Pulse Oximetry 98 Oxygen Delivery 02/09/25 16:00 Temperature 36.3 C L Pulse Rate 103 H Respiratory Rate 20 Blood Pressure 126/62 Pulse Oximetry 97 Oxygen Delivery Exam Const: General: cooperative, no acute distress and alert Limitations: no limitations HENMT: Head: normocephalic Eyes: Pupils: Equal, round and reactive pupils present Neck: Neck: no lymphadenopathy Cardio: Rate: tachycardic Rhythm: regular rhythm Results Labs 02/09/25 06:11 02/09/25 06:11 Labs: Short CBC 02/09/25 Range/Units 06:11 WBC 56.9 H* (4.5-10.0) K/mm3 Hgb 7.5 L (12.0-15.0) g/dL Hct 23.6 L (37.0-47.0) % Plt Count 226 (150-375) k/mm3 BMP 02/09/25 06:11 Sodium 137 Potassium 3.5 Chloride 107 Carbon Dioxide 27 BUN 11 Creatinine 0.97 Glucose 97 Calcium 8.4 Liver Function 02/09/25 Range/Units 06:11 Total Bilirubin 0.3 (0.2-1.3) mg/dL AST 25 (14-36) U/L ALT 13 (6-35) U/L Alkaline Phosphatase 115 (38-126) U/L Albumin 2.8 L (3.5-5.1) g/dL
[2025-02-09 20:00] VITALS: BP 135/74; PULSE 102; PULSE 110; PULSE 96; RESP 18; TEMP 36.9; O2SAT 97
[2025-02-10] VITALS (12 sets, daily range): BP systolic 108–133; BP diastolic 53–74; PULSE 93–131; RESP 16–20; TEMP 36.1–36.9; O2SAT 94–100
[2025-02-10 03:45] LABS: Add Urine Microscopic? YES; Appearance Urine Clear (Clear); Glucose Urine UA Negative (Negative); Leukocyte Esterase Ur Trace LEU/UL (Negative); Nitrate Urine Negative (Negative); Non Pathogenic Casts 0-2; Specific Grav Ur 1.012 (1.001-1.035)
[2025-02-10] MEDS: GABAPENTIN 300 MG CAPSULE 600 MG PO ×3 (05:15→21:09)
[2025-02-10] MEDS: CENTRAL LINE FLUSH 10 ML IV PUSH ×3 (05:16→21:09)
[2025-02-10] MEDS: CENTRAL LINE FLUSH 20 ML IV PUSH (05:16)
[2025-02-10 05:28] LABS: Hematocrit 23.5 % (37.0-47.0); Hemoglobin 7.6 g/dL (12.0-15.0); Mean Corpuscular HGB Conc 32.3 g/dl (32-36); Mean Corpuscular Hemoglobin 28.5 pg (26-34); Mean Corpuscular Volume 88.0 fl (80-100); Platelet Count Result 186 k/mm3 (150-375); Red Blood Count 2.67 M/mm3 (4.2-5.4); White Blood Count 47.5 K/mm3 (4.5-10.0)
[2025-02-10 05:56] LABS: Band Neutrophils Percent 9 % (0-6); Lymphocytes Absolute Manual 10.45 K/mm3 (1.1-4.5); Lymphocytes Percent Manual 22.0 % (18-44); Metamyelocytes Percent 3 %; Monocytes Absolute Manual 3.32 K/mm3 (0.1-0.90); Monocytes Percent Manual 7 % (3-9); Myelocytes Percent 1 %; Neutrophils Absolute Manual 31.82 K/mm3 (1.3-6.7); Neutrophils Percent Manual 58 % (46-73); Total Cells Counted 100
[2025-02-10 05:57] LABS: Anisocytosis 1+; Giant Platelets Present; Microcytosis 1+ (NORMAL); Schistocytes None Seen
[2025-02-10] MEDS: UMECLIDINIUM/VILANTEROL 62.5-25 MCG ELLIPTA 1 PUFF INHALATION (09:11)
[2025-02-10] MEDS: SIMVASTATIN 5 MG TABLET PO (09:39)
[2025-02-10] MEDS: PANTOPRAZOLE 40 MG TABLET PO ×2 (09:39→21:09)
[2025-02-10] MEDS: MECLIZINE HCL 25 MG TABLET PO ×3 (09:39→16:30)
[2025-02-10] MEDS: FLUTICASONE PROPIONATE 0.05% NA SPR 16 GM BTL (*BKC) 1 SPRAY NASAL (09:40)
--- NOTE | 2025-02-10 12:43 | PM.IMPN2 ---
Assessment and Plan Assessment and Plan (1) Rectal bleeding: Code(s): K62.5 - Hemorrhage of anus and rectum Status: Acute Assessment and Plan: Patient reporting at dark tarry stools for the past 2 months, however did report to the ER physician it is only been the past week. Has been feeling generally weak for the last 3 weeks, worsened in the last few days. Past medical history significant for metastatic colon cancer. Has undergone chemotherapy treatments x2. Noted to be anemic during her previous oncology visit on 01/19. Started on iron/B12. Hemoglobin reduced compared to previous. 8.0 on 02/02, now 7.3 on 02/04. Arrived tachycardic in the 120s and blood pressure soft. Given abnormal vital signs and hemoglobin level, patient has 1 unit of PRBC ordered. - transfuse 1 unit of PRBC, 02/04. Repeat H&H 1 hour post transfusion, currently scheduled for 11:00 p.m. >> assessment this evening around 6:00 p.m. showed patient to have good color and heart rate/blood pressure improved with 3/4 of the blood transfusion completed. - GI consulted, per ED provider spoke with the on-call canvas goods supervisor they plan for patient to be NPO at midnight and undergo an EGD tomorrow - trend hemoglobin, transfuse if less than 7 - continue iron and B12 - start pantoprazole b.i.d. - monitor hemodynamic stability egd yesterday- Patient does not have evidence of upper GI bleeding. She has been recently started on iron pills, which probably explains the dark black color of her stools. Anemia is probably likely to current chemotherapy. Suggest conservative approach, and constant evaluation by Oncology. 02/08- no reports of bleeding. hg remains stable. 02/10- hg 7.6 today. (2) Colon cancer: Qualifiers: Colon location: sigmoid Qualified Code(s): C18.7 - Malignant neoplasm of sigmoid colon Code(s): C18.9 - Malignant neoplasm of colon, unspecified Status: Acute Assessment and Plan: History of metastatic colon cancer with four masses to the liver. Currently undergoing palliative chemotherapy. Has received 2 treatments thus far. Last saw her oncologist, Dr. Godinez, on 01/19. She was started on iron and B12 as she was noted to be anemic and chemotherapy was reduced by 10%. Patient was also started on Neupogen 4 chemotherapy-induced neutropenia prophylaxis. Noted today to be anemic with a WBC of 2.2. Platelet count within normal limits. - oncology consulted - reporting poor appetite for the past 1-2 weeks, likely related to chemotherapy. Dietitian consulted for assistance with nutrition. (3) Metastasis to liver: Code(s): C78.7 - Secondary malignant neoplasm of liver and intrahepatic bile duct Status: Acute Assessment and Plan: - see above (4) Chemotherapy induced neutropenia: Code(s): D70.1 - Agranulocytosis secondary to cancer chemotherapy; T45.1X5A - Adverse effect of antineoplastic and immunosuppressive drugs, initial encounter Status: Acute Assessment and Plan: Started on Neupogen at her last oncology appointment on 01/19. WBC 13.3 (01/19) -> 1.4 (02/02) -> 2.2 (02/04). - oncology consulted was getting neupogen. rechecked wbc yesterday was high, so it was held it is trending down now Hold Neupogen and monitor - Agree with infectious work up - oncology checking LDH, haptoglobin, peripheral smear -ua was negative, chest xray unremarkable (5) Asthma-COPD overlap syndrome: Code(s): J44.89 - Other specified chronic obstructive pulmonary disease Status: Chronic Assessment and Plan: No current evidence of exacerbation. Stable. - continue home medications: Anoro, fluticasone, albuterol (6) Hypertension: Qualifiers: Hypertension type: primary hypertension Qualified Code(s): I10 - Essential (primary) hypertension Code(s): I10 - Essential (primary) hypertension Status: Chronic Assessment and Plan: - chronic, currently 1 to her 47. Arrived with a soft blood pressure. - hold home medications including: Lisinopril 40 mg daily, atenolol 50 mg daily - monitor Plan Diet: Regular GI Prophylaxis: n/a, however on PPI for GI bleed DVT Prophylaxis: SCDs IV fluids: no IVF, receiving 1u of PRBC Lines/Tubes: pIV Code Status: full code Subjective Date/time seen: 02/10/25 12:43 Interval history: Pt is seen and examined. She was recently dx with metastatic colon cancer with liver metastasis. Her WBC was high but she was receiving Neupogen injection. She is working with PT/OT. Still feeling weak. Oncology is following Review of Systems Review of Systems: All systems reviewed & are unremarkable except as noted in HPI and below Exam Const: General: comfortable and no acute distress Other: , female, older appearing than stated age HENMT: Face/Nose/Sinus: Normal nares present Mouth: Yes moist mucous membranes Eyes: General: appearance normal, both eyes and all related structures Sclera: sclerae normal Pupils: Equal, round and reactive pupils present EOM: EOMs intact bilaterally Resp: Effort & Inspection: normal respiratory effort Auscultation: clear to auscultation bilaterally Cardio: Rate: regular rate Rhythm: regular rhythm Other: S1-S2 present without murmur, rub, ectopy GI: Other: Abdomen soft, nondistended, nontender. Normoactive bowel sounds in all quadrants. Skin: General skin exam: normal color and no rashes or lesions noted Wounds: no wounds Neuro: Cranial nerves: Yes Equal, round and reactive pupils present Speech: normal speech Motor exam (neuro): 5/5 motor strength present throughout Sensory Exam: normal sensation Other: A&O x4, generalized weakness Extrem: General: normal to inspection Psych: Mental Status: mental status grossly normal Affect: normal affect Other: Good insight and judgment, very pleasant Objective Data Vital Signs Vital Signs: Vital Signs - 24 hr 02/09/25 16:00 02/09/25 16:00 02/09/25 20:00 Temperature 97.3 F L 98.4 F Pulse Rate 102 H 103 H 110 H Respiratory Rate 20 18 Blood Pressure 126/62 135/74 Pulse Oximetry 97 97 Oxygen Delivery Fraction of Inspired Oxygen 02/09/25 20:00 02/09/25 20:00 02/10/25 00:00 Temperature Pulse Rate 102 H 96 102 H Respiratory Rate 18 Blood Pressure Pulse Oximetry 97 Oxygen Delivery Room Air Fraction of Inspired Oxygen 21 02/10/25 00:00 02/10/25 04:00 02/10/25 04:00 Temperature 98.5 F 97.9 F Pulse Rate 97 101 H 102 H Respiratory Rate 16 18 Blood Pressure 125/53 L 123/67 Pulse Oximetry 100 97 Oxygen Delivery Fraction of Inspired Oxygen 02/10/25 08:00 02/10/25 08:01 02/10/25 09:40 Temperature 96.9 F L Pulse Rate 104 H 93 Respiratory Rate 18 18 Blood Pressure 116/62 Pulse Oximetry 97 97 Oxygen Delivery Room Air Fraction of Inspired Oxygen 02/10/25 12:00 02/10/25 12:04 Temperature 97.3 F L Pulse Rate 103 H 131 H Respiratory Rate 18 Blood Pressure 111/56 L Pulse Oximetry 98 Oxygen Delivery Fraction of Inspired Oxygen Intake/Output Intake/Output: Intake & Output 02/07/25 02/08/25 02/09/25 02/10/25 23:59 23:59 23:59 23:59 Intake Total 7123 720 2982 480 Balance 6208 439 6015 480 Meds/Results Medications: Active Medications Generic Name Dose Route Start Last Admin Trade Name Freq PRN Reason Stop Dose Admin Albuterol 1 puff 02/04/25 23:17 02/07/25 20:46 Albuterol Sulfate (*Sp) Aerosol 1 Puff INHALATION 1 puff Q4HRT PRN Administration shortness of breath or wheezing Dicyclomine HCl 20 mg 02/04/25 19:10 Dicyclomine Hcl 10 Mg Capsule PO TID PRN ABD PAIN Fluticasone Propionate 1 spray 02/05/25 09:00 02/10/25 09:40 Fluticasone Propionate 0.05% Na Spr 16 Gm Btl (*Bkc) NASAL 1 spray DAILY MARINO Administration Gabapentin 600 mg 02/04/25 22:00 02/10/25 05:15 Gabapentin 300 Mg Capsule PO 600 mg Q8HR MARINO Administration Heparin Sodium (Beef Lung) 50 units 02/06/25 09:00 02/10/25 09:40 Heparin Flush 50 Units/5 Ml Syringe IV PUSH 50 units QAM MARINO Administration Heparin Sodium (Beef Lung) 50 units 02/06/25 06:39 Heparin Flush 50 Units/5 Ml Syringe IV PUSH PRN PRN after intermittent infusion Heparin Sodium (Beef Lung) 50 units 02/06/25 06:39 02/10/25 05:16 Heparin Flush 50 Units/5 Ml Syringe IV PUSH 50 units PRN PRN Administration after blood draws Heparin Sodium (Porcine) 500 units 02/06/25 06:39 Heparin Sodium Lock Flush 500 Units/5 Ml Syringe IV PUSH PRN PRN see comments below Meclizine HCl 25 mg 02/05/25 09:00 02/10/25 09:39 Meclizine Hcl 25 Mg Tablet PO 25 mg TID MARINO Administration Ondansetron HCl 4 mg 02/08/25 10:42 02/08/25 11:15 Ondansetron Inj 4 Mg/2 Ml Vial IV PUSH 4 mg Q4H PRN Administration Nausea And Vomiting Pantoprazole Sodium 40 mg 02/07/25 23:05 02/10/25 09:39 Pantoprazole 40 Mg Tablet PO 40 mg Q12HR MARINO Administration Simethicone 80 mg 02/08/25 21:49 Simethicone 80 Mg Tab.Chew PO QID PRN Gas Discomfort Simvastatin 5 mg 02/05/25 09:00 02/10/25 09:39 Simvastatin 5 Mg Tablet PO 5 mg DAILY MARINO Administration Sodium Chloride 10 ml 02/05/25 06:00 02/10/25 05:16 Central Line Flush IV PUSH 10 ml Q8HR MARINO Administration Sodium Chloride 20 ml 02/04/25 23:13 02/10/25 05:16 Central Line Flush IV PUSH 20 ml PRN PRN Administration after blood draws Tramadol HCl 50 mg 02/04/25 19:10 02/09/25 00:17 Tramadol Hcl (*Crx) 50 Mg Tablet PO 50 mg Q6H PRN Administration Pain Umeclidinium/Vilanterol 1 puff 02/05/25 08:00 02/10/25 09:11 Umeclidinium/Vilanterol 62.5-25 Mcg Ellipta INHALATION 1 puff DAILYRT MARINO Administration Radiology Results: ITS Impressions Abdomen/Pelvis CT 02/04/25 14:29 IMPRESSION: 1. No acute surgical abnormality identified. Fluid in the small and large bowel may represent inflammatory or infectious enteritis with diarrhea process. 2. Slight decreased size of liver masses and perirectal lymphadenopathy suggesting some positive response to treatment. 3. Small pericardial effusion on today's exam. Chest X-Ray 02/09/25 15:27 IMPRESSION: 1: NO ACUTE CARDIOPULMONARY DISEASE. Labs Labs: Laboratory Results - last 24 hr 02/10/25 02/10/25 03:27 05:15 WBC 47.5 H RBC 2.67 L Hgb 7.6 L Hct 23.5 L MCV 88.0 MCH 28.5 MCHC 32.3 RDW 17.2 H Plt Count 186 MPV 9.7 Immature Gran % (Auto) Not Reportable Neut % (Auto) Not Reportable Lymph % (Auto) Not Reportable [place] % (Auto) Not Reportable Eos % (Auto) Not Reportable Baso % (Auto) Not Reportable Lymph # (Auto) Not Reportable [place] # (Auto) Not Reportable Eos # (Auto) Not Reportable Baso # (Auto) Not Reportable Abs Immat Gran (auto) Not Reportable Absolute Neuts (auto) Not Reportable Absolute Nucleated RBC Not Reportable Total Counted 100 Neutrophils % (Manual) 58 Band Neutrophils % 9 H Lymphocytes % (Manual) 22.0 Monocytes % (Manual) 7 Metamyelocytes % 3 Myelocytes % 1 Nucleated RBC % Not Reportable Abs Neuts (Manual) 31.82 H Abs Lymphs (Manual) 10.45 H Abs Monocytes (Manual) 3.32 H Nucleated RBCs 1 Platelet Estimate Adequate Giant Platelets Present Anisocytosis 1+ Microcytosis 1+ Schistocytes None seen Urine Color Yellow Urine Appearance Clear Urine pH 5.5 Ur Specific [place] 1.012 Urine Protein Negative Urine Glucose (UA) Negative Urine Ketones Negative Ur Blood (Man) Negative Urine Nitrate Negative Urine Bilirubin Negative Urine Urobilinogen 0.2 Leukocyte Esterase Rfl Trace H Urine RBC 0-2 Urine WBC 0-5 Ur Squamous Epith Cells Occasional Urine Bacteria Rare Urine Casts 0-2 Quality VTE Prophylaxis VTE prophylaxis: mechanical ordered
[2025-02-10] MEDS: traMADol HCL (*CRX) 50 MG TABLET PO (13:19)
[2025-02-10] MEDS: ALBUTEROL SULFATE (*SP) AEROSOL 1 PUFF INHALATION (23:48)
[2025-02-11] VITALS (12 sets, daily range): BP systolic 97–137; BP diastolic 43–72; PULSE 86–127; RESP 16–20; TEMP 35.7–36.7; O2SAT 96–98
--- NOTE | 2025-02-11 04:36 | ECG_ITS ---
Test Date: 2025-02-11 04:48:57 Measurements Intervals [place] Rate: 106 P: 76 IN: 156 QRS: 72 QRSD: 78 T: 88 QT: 349 QTc: 463 Interpretive Statements SINUS TACHYCARDIA WITH OCCASIONAL VENTRICULAR PREMATURE COMPLEXES BORDERLINE ST-T WAVE ABNORMALITY- DIFFUSE LEADS BASELINE ARTIFACT- II, III, AVR, AVL, AVF, V4-V6 ABNORMAL ECG Compared to ECG 02/04/2025 12:42:16 HEART RATE HAS DECREASED Electronically Signed On 02-11-2025 07:14:29 [employer] by Miguel Aguayo D.O.
[2025-02-11] MEDS: traMADol HCL (*CRX) 50 MG TABLET PO (04:52)
[2025-02-11] MEDS: CENTRAL LINE FLUSH 20 ML IV PUSH ×2 (04:54→05:21)
[2025-02-11] MEDS: GABAPENTIN 300 MG CAPSULE 600 MG PO ×3 (05:21→21:57)
[2025-02-11] MEDS: CENTRAL LINE FLUSH 10 ML IV PUSH ×3 (05:22→21:57)
[2025-02-11] MEDS: HEPARIN SODIUM LOCK FLUSH 500 UNITS/5 ML SYRINGE IV PUSH (05:22)
[2025-02-11 05:47] LABS: Hematocrit 24.5 % (37.0-47.0); Hemoglobin 7.7 g/dL (12.0-15.0); Mean Corpuscular HGB Conc 31.4 g/dl (32-36); Mean Corpuscular Hemoglobin 27.9 pg (26-34); Mean Corpuscular Volume 88.8 fl (80-100); Platelet Count Result 173 k/mm3 (150-375); Red Blood Count 2.76 M/mm3 (4.2-5.4); White Blood Count 38.8 K/mm3 (4.5-10.0)
[2025-02-11 06:38] LABS: Band Neutrophils Percent 7 % (0-6); Basophils Absolute Manual 0.00 K/mm3 (0.0-0.1); Basophils Percent Manual 0 % (0-1); Eosinophils Absolute Manual 0.00 K/mm3 (0.02-0.50); Eosinophils Percent Manual 0 % (0-4); Lymphocytes Absolute Manual 7.76 K/mm3 (1.1-4.5); Lymphocytes Percent Manual 20 % (18-44); Metamyelocytes Percent 5 %; Monocytes Absolute Manual 1.55 K/mm3 (0.1-0.90); Monocytes Percent Manual 4 % (3-9); Myelocytes Percent 1 %; Neutrophils Absolute Manual 23.28 K/mm3 (1.3-6.7); Neutrophils Percent Manual 53 % (46-73); Total Cells Counted 100
[2025-02-11 06:39] LABS: Promyelocytes Percent 7 %; Smudge Cells FEW
[2025-02-11 06:42] LABS: Hypochromasia 1+
[2025-02-11 06:43] LABS: Anisocytosis 1+
[2025-02-11 06:44] LABS: Basophilic Stippling Occasional; Other Cell Type 7; Schistocytes None Seen
[2025-02-11] MEDS: FLUTICASONE PROPIONATE 0.05% NA SPR 16 GM BTL (*BKC) 1 SPRAY NASAL (09:01)
[2025-02-11] MEDS: MECLIZINE HCL 25 MG TABLET PO ×3 (09:02→16:16)
[2025-02-11] MEDS: PANTOPRAZOLE 40 MG TABLET PO ×2 (09:02→21:57)
[2025-02-11] MEDS: SIMVASTATIN 5 MG TABLET PO (09:02)
[2025-02-11] MEDS: UMECLIDINIUM/VILANTEROL 62.5-25 MCG ELLIPTA 1 PUFF INHALATION (09:11)
--- NOTE | 2025-02-11 13:27 | PM.IMPN2 ---
Assessment and Plan Assessment and Plan (1) Rectal bleeding: Code(s): K62.5 - Hemorrhage of anus and rectum Status: Acute Assessment and Plan: Patient reporting at dark tarry stools for the past 2 months, however did report to the ER physician it is only been the past week. Has been feeling generally weak for the last 3 weeks, worsened in the last few days. Past medical history significant for metastatic colon cancer. Has undergone chemotherapy treatments x2. Noted to be anemic during her previous oncology visit on 01/19. Started on iron/B12. Hemoglobin reduced compared to previous. 8.0 on 02/02, now 7.3 on 02/04. Arrived tachycardic in the 120s and blood pressure soft. Given abnormal vital signs and hemoglobin level, patient has 1 unit of PRBC ordered. - transfuse 1 unit of PRBC, 02/04. - GI consulted, s/p EGD on 02/05 which showed no evidence of upper GI bleeding. Per GI the dark black stools likely related to iron supplementation and anemia due to chemotherapy. - trend hemoglobin, transfuse if less than 7 - continue iron and B12 - start pantoprazole b.i.d. - monitor hemodynamic stability Patient no longer endorsing dark stools. Vitals and anemia remain stable. (2) Colon cancer: Qualifiers: Colon location: sigmoid Qualified Code(s): C18.7 - Malignant neoplasm of sigmoid colon Code(s): C18.9 - Malignant neoplasm of colon, unspecified Status: Acute Assessment and Plan: History of metastatic colon cancer with four masses to the liver. Currently undergoing palliative chemotherapy. Has received 2 treatments thus far. Last saw her oncologist, Dr. Godinez, on 01/19. She was started on iron and B12 as she was noted to be anemic and chemotherapy was reduced by 10%. Patient was also started on Neupogen 4 chemotherapy-induced neutropenia prophylaxis. WBC 2.2 on admission, however has since significantly elevated to 38.8 (<< from 56.9 on 02/09) Oncology consulted Holding neupogen Infectious workup: UA and Chest XR unremarkable. Denies any nausea/vomiting and abdominal pain. Vitals stable, afebrile. (3) Metastasis to liver: Code(s): C78.7 - Secondary malignant neoplasm of liver and intrahepatic bile duct Status: Acute Assessment and Plan: - see above (4) Chemotherapy induced neutropenia: Code(s): D70.1 - Agranulocytosis secondary to cancer chemotherapy; T45.1X5A - Adverse effect of antineoplastic and immunosuppressive drugs, initial encounter Status: Acute Assessment and Plan: Started on Neupogen at her last oncology appointment on 01/19. WBC 13.3 (01/19) -> 1.4 (02/02) -> 2.2 (02/04). WBC 2.2 on admission, however has since significantly elevated to 38.8 (<< from 56.9 on 02/09) Oncology consulted Holding neupogen Infectious workup: UA and Chest XR unremarkable. Denies any nausea/vomiting and abdominal pain. Vitals stable, afebrile. (5) Asthma-COPD overlap syndrome: Code(s): J44.89 - Other specified chronic obstructive pulmonary disease Status: Chronic Assessment and Plan: No current evidence of exacerbation. Stable. - continue home medications: Anoro, fluticasone, albuterol (6) Hypertension: Qualifiers: Hypertension type: primary hypertension Qualified Code(s): I10 - Essential (primary) hypertension Code(s): I10 - Essential (primary) hypertension Status: Chronic Assessment and Plan: Chronic Per chart review patient was having soft blood pressures which resulted in her antihypertensive including lisinopril and atenolol being held on admission. Blood pressures have since improved and patient was noted to have tachycardia with ambulation when working with therapy Atenolol 50 mg daily has been resumed. Continue to hold lisinopril 40 mg daily and resume as appropriate Blood pressures reviewed and remained stable, continue to monitor Plan Diet: Regular GI Prophylaxis: n/a, however on PPI for GI bleed DVT Prophylaxis: SCDs IV fluids: no IVF, receiving 1u of PRBC Lines/Tubes: pIV Code Status: full code Medical Record Review I have reviewed the following patient records and this information was taken into consideration when formulating the assessment and plan.: previous labs Time Spent With Patient Time with patient: 25 - 35 minutes Subjective Date/time seen: 02/11/25 13:27 Interval history: Patient is pleasant lying comfortably in bed. She had no acute events overnight. Patient was working with therapy today and was noted to have elevated heart rates into the 120s, per therapy this has been ongoing since admission. Patient denies any associated chest pain, shortness a breath or dizziness. Resume patient's atenolol. Patient continues to endorse increased weakness since she is not feel safe going home today. Discussed with patient that if she continues to endorses weakness we will have to rediscuss potential placement. She states understanding. Patient has no other complaints denying palpitations, nausea/vomiting, and abdominal pain. She also notes that the dark stools resolved. Review of Systems Review of Systems: All systems reviewed & are unremarkable except as noted in HPI and below Exam Narrative: AF HR 97 RR 20 SpO2 97 BP 115/43 General: female in no acute respiratory distress who is nontoxic appearing, lying semi recumbent in bed. HEENT: Normocephalic. Atraumatic. Extraocular movement intact. Sclera clear and anicteric. No facial asymmetry. Chest: Lungs are clear to auscultation bilaterally. No wheezes or crackles. CV: Heart was regular rate and rhythm. Abd: Abdomen was soft. Nontender. Nondistended. Positive bowel sounds. Ext: No clubbing, cyanosis, or edema. DP pulses bilaterally. Neuro: Patient is alert. Speech is clear. Objective Data Vital Signs Vital Signs: Vital Signs - 24 hr 02/10/25 16:00 02/10/25 16:01 02/10/25 20:00 Temperature 97.6 F Pulse Rate 99 95 95 Respiratory Rate 20 20 Blood Pressure 108/63 Pulse Oximetry 99 99 Oxygen Delivery Room Air Fraction of Inspired Oxygen 21 02/10/25 20:00 02/10/25 20:00 02/10/25 21:59 Temperature 97.9 F 97.9 F Pulse Rate 94 106 H 106 H Respiratory Rate 20 20 Blood Pressure 133/74 133/74 Pulse Oximetry 98 98 Oxygen Delivery Fraction of Inspired Oxygen 02/11/25 00:00 02/11/25 00:00 02/11/25 04:00 Temperature 98.0 F Pulse Rate 108 H 127 H 106 H Respiratory Rate 18 Blood Pressure 108/60 Pulse Oximetry 97 Oxygen Delivery Fraction of Inspired Oxygen 02/11/25 04:00 02/11/25 08:00 02/11/25 08:01 Temperature 98.1 F 96.8 F L Pulse Rate 106 H 114 H 110 H Respiratory Rate 18 18 Blood Pressure 114/59 L 137/72 Pulse Oximetry 98 97 Oxygen Delivery Fraction of Inspired Oxygen 02/11/25 09:11 02/11/25 09:13 02/11/25 11:18 Temperature Pulse Rate 98 Respiratory Rate 18 Blood Pressure Pulse Oximetry 97 97 Oxygen Delivery Room Air Room Air Fraction of Inspired Oxygen 21 02/11/25 12:00 Temperature 96.3 F L Pulse Rate 97 Respiratory Rate 20 Blood Pressure 115/43 L Pulse Oximetry 97 Oxygen Delivery Fraction of Inspired Oxygen Intake/Output Intake/Output: Intake & Output 02/08/25 02/09/25 02/10/25 02/11/25 23:59 23:59 23:59 23:59 Intake Total 800 1220 1200 960 Balance 800 1220 1200 960 Meds/Results Medications: Active Medications Generic Name Dose Route Start Last Admin Trade Name Freq PRN Reason Stop Dose Admin Albuterol 1 puff 02/04/25 23:17 02/10/25 23:48 Albuterol Sulfate (*Sp) Aerosol 1 Puff INHALATION 1 puff Q4HRT PRN Administration shortness of breath or wheezing Atenolol 50 mg 02/11/25 11:05 02/11/25 11:18 Atenolol 50 Mg Tablet PO 50 mg DAILY MARINO Administration Dicyclomine HCl 20 mg 02/04/25 19:10 Dicyclomine Hcl 10 Mg Capsule PO TID PRN ABD PAIN Fluticasone Propionate 1 spray 02/05/25 09:00 02/11/25 09:01 Fluticasone Propionate 0.05% Na Spr 16 Gm Btl (*Bkc) NASAL 1 spray DAILY MARINO Administration Gabapentin 600 mg 02/04/25 22:00 02/11/25 13:19 Gabapentin 300 Mg Capsule PO 600 mg Q8HR MARINO Administration Heparin Sodium (Beef Lung) 50 units 02/06/25 09:00 02/11/25 09:02 Heparin Flush 50 Units/5 Ml Syringe IV PUSH 50 units QAM MARINO Administration Heparin Sodium (Beef Lung) 50 units 02/06/25 06:39 Heparin Flush 50 Units/5 Ml Syringe IV PUSH PRN PRN after intermittent infusion Heparin Sodium (Beef Lung) 50 units 02/06/25 06:39 02/11/25 04:54 Heparin Flush 50 Units/5 Ml Syringe IV PUSH 50 units PRN PRN Administration after blood draws Heparin Sodium (Porcine) 500 units 02/06/25 06:39 02/11/25 05:22 Heparin Sodium Lock Flush 500 Units/5 Ml Syringe IV PUSH 500 units PRN PRN Administration see comments below Meclizine HCl 25 mg 02/05/25 09:00 02/11/25 12:19 Meclizine Hcl 25 Mg Tablet PO 25 mg TID MARINO Administration Ondansetron HCl 4 mg 02/08/25 10:42 02/08/25 11:15 Ondansetron Inj 4 Mg/2 Ml Vial IV PUSH 4 mg Q4H PRN Administration Nausea And Vomiting Pantoprazole Sodium 40 mg 02/07/25 23:05 02/11/25 09:02 Pantoprazole 40 Mg Tablet PO 40 mg Q12HR MARINO Administration Simethicone 80 mg 02/08/25 21:49 Simethicone 80 Mg Tab.Chew PO QID PRN Gas Discomfort Simvastatin 5 mg 02/05/25 09:00 02/11/25 09:02 Simvastatin 5 Mg Tablet PO 5 mg DAILY MARINO Administration Sodium Chloride 10 ml 02/05/25 06:00 02/11/25 13:19 Central Line Flush IV PUSH 10 ml Q8HR MARINO Administration Sodium Chloride 20 ml 02/04/25 23:13 02/11/25 05:21 Central Line Flush IV PUSH 20 ml PRN PRN Administration after blood draws Tramadol HCl 50 mg 02/04/25 19:10 02/11/25 04:52 Tramadol Hcl (*Crx) 50 Mg Tablet PO 50 mg Q6H PRN Administration Pain Umeclidinium/Vilanterol 1 puff 02/05/25 08:00 02/11/25 09:11 Umeclidinium/Vilanterol 62.5-25 Mcg Ellipta INHALATION 1 puff DAILYRT MARINO Administration Radiology Results: ITS Impressions Abdomen/Pelvis CT 02/04/25 14:29 IMPRESSION: 1. No acute surgical abnormality identified. Fluid in the small and large bowel may represent inflammatory or infectious enteritis with diarrhea process. 2. Slight decreased size of liver masses and perirectal lymphadenopathy suggesting some positive response to treatment. 3. Small pericardial effusion on today's exam. Chest X-Ray 02/09/25 15:27 IMPRESSION: 1: NO ACUTE CARDIOPULMONARY DISEASE. Labs Labs: Laboratory Results - last 24 hr 02/11/25 04:54 WBC 38.8 H RBC 2.76 L Hgb 7.7 L Hct 24.5 L MCV 88.8 MCH 27.9 MCHC 31.4 L RDW 17.3 H Plt Count 173 MPV 10.5 H Immature Gran % (Auto) Not Reportable Neut % (Auto) Not Reportable Lymph % (Auto) Not Reportable [place] % (Auto) Not Reportable Eos % (Auto) Not Reportable Baso % (Auto) Not Reportable Lymph # (Auto) Not Reportable [place] # (Auto) Not Reportable Eos # (Auto) Not Reportable Baso # (Auto) Not Reportable Abs Immat Gran (auto) Not Reportable Absolute Neuts (auto) Not Reportable Absolute Nucleated RBC Not Reportable Total Counted 100 Neutrophils % (Manual) 53 Band Neutrophils % 7 H Lymphocytes % (Manual) 20 Monocytes % (Manual) 4 Eosinophils % (Manual) 0 Basophils % (Manual) 0 Metamyelocytes % 5 Myelocytes % 1 Promyelocytes % (Man) 7 Nucleated RBC % Not Reportable Abs Neuts (Manual) 23.28 H Abs Lymphs (Manual) 7.76 H Abs Monocytes (Manual) 1.55 H Absolute Eos (Manual) 0.00 L Abs Basophils (Manual) 0.00 Smudge Cells Few Other Cell Type 7 Platelet Estimate Adequate Large Platelets Present Hypochromasia 1+ Basophilic Stippling Occasional Anisocytosis 1+ Schistocytes None seen Quality VTE Prophylaxis VTE prophylaxis: mechanical ordered
--- NOTE | 2025-02-11 18:40 | WPDONCPN ---
Progress Note: A&P Assessment and Plan (1) Leukocytosis: Code(s): D72.829 - Elevated white blood cell count, unspecified Status: Acute (2) Melena: Code(s): K92.1 - Melena Status: Acute (3) Chemotherapy induced neutropenia: Code(s): D70.1 - Agranulocytosis secondary to cancer chemotherapy; T45.1X5A - Adverse effect of antineoplastic and immunosuppressive drugs, initial encounter Status: Acute (4) Colon cancer: Qualifiers: Colon location: sigmoid Qualified Code(s): C18.7 - Malignant neoplasm of sigmoid colon Code(s): C18.9 - Malignant neoplasm of colon, unspecified Status: Acute Plan Vianca West is a 64 year old female who is admitted for sever fatigue, melena after chemotherapy. she has metastatic colon cancer status post colonoscopy and biopsy done on November 19, 2024. PET scan done in November showed wall thickening of the rectosigmoid area with perirectal lymphadenopathy and liver metastases. She started palliative chemotherapy with FOLFOX Avastin regimen on December 22 and received cycle 2. With 10% dose reduction on January 19. Patient received Neupogen on February 02 and was supposed to get another shot of Neupogen today but got admitted to the hospital with generalized weakness. She has been receiving neupogen while inpatient until yesterday and her WBC today is > 50K. Oncology was re-consulted for management of leucocytosis. CT scan of the abdomen showed no acute surgical abnormality. There was fluid in the small/large bowel may represent inflammatory infectious enteritis. Labs showed anemia and thrombocytopenia. Leucocytosis: - Hold Neupogen and monitor ; CBC showed improving leucocyte counts - Pt can be monitored with primary medical oncologist outpatient Melena: - Improved per pt Colon cancer: - Plan per as he plans for dose reduced FOLFOX moving forward - Advised pt to discuss with regarding contiuing bevacizumab as it can increase risk of bleeding. Subjective Date/time seen: 02/11/25 18:40 Interval history: Pt reported clinically better and is excited to go home for [place]. No more melana. ROS is negative except as listed in HPI Exam Narrative: Clear lung sounds, regular HR and rhythm, no focal neuro deficits. Objective Data Vital Signs Vital Signs: Vital Signs - 24 hr 02/10/25 20:00 02/10/25 20:00 02/10/25 20:00 Temperature 36.6 C Pulse Rate 95 94 106 H Respiratory Rate 20 20 Blood Pressure 133/74 Pulse Oximetry 99 98 Oxygen Delivery Room Air Fraction of Inspired Oxygen 21 02/10/25 21:59 02/11/25 00:00 02/11/25 00:00 Temperature 36.6 C 36.7 C Pulse Rate 106 H 108 H 127 H Respiratory Rate 20 18 Blood Pressure 133/74 108/60 Pulse Oximetry 98 97 Oxygen Delivery Fraction of Inspired Oxygen 02/11/25 04:00 02/11/25 04:00 02/11/25 08:00 Temperature 36.7 C 36.0 C L Pulse Rate 106 H 106 H 114 H Respiratory Rate 18 18 Blood Pressure 114/59 L 137/72 Pulse Oximetry 98 97 Oxygen Delivery Fraction of Inspired Oxygen 02/11/25 08:01 02/11/25 09:11 02/11/25 09:13 Temperature Pulse Rate 110 H Respiratory Rate 18 Blood Pressure Pulse Oximetry 97 97 Oxygen Delivery Room Air Room Air Fraction of Inspired Oxygen 21 02/11/25 11:18 02/11/25 12:00 02/11/25 12:05 Temperature 35.7 C L Pulse Rate 98 97 106 H Respiratory Rate 20 Blood Pressure 115/43 L Pulse Oximetry 97 Oxygen Delivery Fraction of Inspired Oxygen 02/11/25 16:00 02/11/25 16:01 Temperature 36.1 C L Pulse Rate 86 91 Respiratory Rate 20 Blood Pressure 115/56 L Pulse Oximetry 97 Oxygen Delivery Fraction of Inspired Oxygen Intake/Output Intake/Output: Intake & Output 02/08/25 02/09/25 02/10/25 02/11/25 23:59 23:59 23:59 23:59 Intake Total 800 1220 1200 1440 Balance 800 1220 1200 1440 Meds/Results Medications: Active Medications Generic Name Dose Route Start Last Admin Trade Name Freq PRN Reason Stop Dose Admin Albuterol 1 puff 02/04/25 23:17 02/10/25 23:48 Albuterol Sulfate (*Sp) Aerosol 1 Puff INHALATION 1 puff Q4HRT PRN Administration shortness of breath or wheezing Atenolol 50 mg 02/11/25 11:05 02/11/25 11:18 Atenolol 50 Mg Tablet PO 50 mg DAILY MARINO Administration Dicyclomine HCl 20 mg 02/04/25 19:10 Dicyclomine Hcl 10 Mg Capsule PO TID PRN ABD PAIN Fluticasone Propionate 1 spray 02/05/25 09:00 02/11/25 09:01 Fluticasone Propionate 0.05% Na Spr 16 Gm Btl (*Bkc) NASAL 1 spray DAILY MARINO Administration Gabapentin 600 mg 02/04/25 22:00 02/11/25 13:19 Gabapentin 300 Mg Capsule PO 600 mg Q8HR MARINO Administration Heparin Sodium (Beef Lung) 50 units 02/06/25 09:00 02/11/25 09:02 Heparin Flush 50 Units/5 Ml Syringe IV PUSH 50 units QAM MARINO Administration Heparin Sodium (Beef Lung) 50 units 02/06/25 06:39 Heparin Flush 50 Units/5 Ml Syringe IV PUSH PRN PRN after intermittent infusion Heparin Sodium (Beef Lung) 50 units 02/06/25 06:39 02/11/25 04:54 Heparin Flush 50 Units/5 Ml Syringe IV PUSH 50 units PRN PRN Administration after blood draws Heparin Sodium (Porcine) 500 units 02/06/25 06:39 02/11/25 05:22 Heparin Sodium Lock Flush 500 Units/5 Ml Syringe IV PUSH 500 units PRN PRN Administration see comments below Meclizine HCl 25 mg 02/05/25 09:00 02/11/25 16:16 Meclizine Hcl 25 Mg Tablet PO 25 mg TID MARINO Administration Ondansetron HCl 4 mg 02/08/25 10:42 02/08/25 11:15 Ondansetron Inj 4 Mg/2 Ml Vial IV PUSH 4 mg Q4H PRN Administration Nausea And Vomiting Pantoprazole Sodium 40 mg 02/07/25 23:05 02/11/25 09:02 Pantoprazole 40 Mg Tablet PO 40 mg Q12HR MARINO Administration Simethicone 80 mg 02/08/25 21:49 Simethicone 80 Mg Tab.Chew PO QID PRN Gas Discomfort Simvastatin 5 mg 02/05/25 09:00 02/11/25 09:02 Simvastatin 5 Mg Tablet PO 5 mg DAILY MARINO Administration Sodium Chloride 10 ml 02/05/25 06:00 02/11/25 13:19 Central Line Flush IV PUSH 10 ml Q8HR MARINO Administration Sodium Chloride 20 ml 02/04/25 23:13 02/11/25 05:21 Central Line Flush IV PUSH 20 ml PRN PRN Administration after blood draws Tramadol HCl 50 mg 02/04/25 19:10 02/11/25 04:52 Tramadol Hcl (*Crx) 50 Mg Tablet PO 50 mg Q6H PRN Administration Pain Umeclidinium/Vilanterol 1 puff 02/05/25 08:00 02/11/25 09:11 Umeclidinium/Vilanterol 62.5-25 Mcg Ellipta INHALATION 1 puff DAILYRT MARINO Administration Radiology Results: ITS Impressions Abdomen/Pelvis CT 02/04/25 14:29 IMPRESSION: 1. No acute surgical abnormality identified. Fluid in the small and large bowel may represent inflammatory or infectious enteritis with diarrhea process. 2. Slight decreased size of liver masses and perirectal lymphadenopathy suggesting some positive response to treatment. 3. Small pericardial effusion on today's exam. Chest X-Ray 02/09/25 15:27 IMPRESSION: 1: NO ACUTE CARDIOPULMONARY DISEASE. Labs Labs: Laboratory Results - last 24 hr 02/11/25 04:54 WBC 38.8 H RBC 2.76 L Hgb 7.7 L Hct 24.5 L MCV 88.8 MCH 27.9 MCHC 31.4 L RDW 17.3 H Plt Count 173 MPV 10.5 H Immature Gran % (Auto) Not Reportable Neut % (Auto) Not Reportable Lymph % (Auto) Not Reportable [place] % (Auto) Not Reportable Eos % (Auto) Not Reportable Baso % (Auto) Not Reportable Lymph # (Auto) Not Reportable [place] # (Auto) Not Reportable Eos # (Auto) Not Reportable Baso # (Auto) Not Reportable Abs Immat Gran (auto) Not Reportable Absolute Neuts (auto) Not Reportable Absolute Nucleated RBC Not Reportable Total Counted 100 Neutrophils % (Manual) 53 Band Neutrophils % 7 H Lymphocytes % (Manual) 20 Monocytes % (Manual) 4 Eosinophils % (Manual) 0 Basophils % (Manual) 0 Metamyelocytes % 5 Myelocytes % 1 Promyelocytes % (Man) 7 Nucleated RBC % Not Reportable Abs Neuts (Manual) 23.28 H Abs Lymphs (Manual) 7.76 H Abs Monocytes (Manual) 1.55 H Absolute Eos (Manual) 0.00 L Abs Basophils (Manual) 0.00 Smudge Cells Few Other Cell Type 7 Platelet Estimate Adequate Large Platelets Present Hypochromasia 1+ Basophilic Stippling Occasional Anisocytosis 1+ Schistocytes None seen
[2025-02-12] VITALS: BP 116/61; PULSE 89; PULSE 92; RESP 17; TEMP 36.1; O2SAT 98
[2025-02-12 04:00] VITALS: BP 120/63; PULSE 84; PULSE 89; RESP 16; TEMP 36.3; O2SAT 95
[2025-02-12] MEDS: CENTRAL LINE FLUSH 10 ML IV PUSH (05:39)
[2025-02-12] MEDS: CENTRAL LINE FLUSH 20 ML IV PUSH (05:39)
[2025-02-12] MEDS: GABAPENTIN 300 MG CAPSULE 600 MG PO (05:39)
[2025-02-12 06:30] LABS: Hematocrit 23.7 % (37.0-47.0); Hemoglobin 7.5 g/dL (12.0-15.0); Mean Corpuscular HGB Conc 31.6 g/dl (32-36); Mean Corpuscular Hemoglobin 28.2 pg (26-34); Mean Corpuscular Volume 89.1 fl (80-100); Platelet Count Result 152 k/mm3 (150-375); Red Blood Count 2.66 M/mm3 (4.2-5.4); White Blood Count 31.5 K/mm3 (4.5-10.0)
[2025-02-12 07:11] LABS: Band Neutrophils Percent 19 % (0-6); Lymphocytes Absolute Manual 7.56 K/mm3 (1.1-4.5); Lymphocytes Percent Manual 24 % (18-44); Metamyelocytes Percent 3 %; Monocytes Absolute Manual 2.52 K/mm3 (0.1-0.90); Monocytes Percent Manual 8 % (3-9); Neutrophils Absolute Manual 19.21 K/mm3 (1.3-6.7); Neutrophils Percent Manual 42 % (46-73); Total Cells Counted 100
[2025-02-12 07:12] LABS: Promyelocytes Percent 4 %; Schistocytes None Seen
[2025-02-12 08:00] VITALS: BP 130/70; PULSE 82; PULSE 90; RESP 12; TEMP 35.6; O2SAT 96
[2025-02-12] MEDS: UMECLIDINIUM/VILANTEROL 62.5-25 MCG ELLIPTA 1 PUFF INHALATION (08:07)
[2025-02-12 08:09] VITALS: PULSE 92; RESP 17
[2025-02-12 08:24] VITALS: PULSE 100
[2025-02-12] MEDS: PANTOPRAZOLE 40 MG TABLET PO (08:24)
[2025-02-12] MEDS: MECLIZINE HCL 25 MG TABLET PO (08:24)
[2025-02-12] MEDS: SIMVASTATIN 5 MG TABLET PO (08:24)
[2025-02-12] MEDS: FLUTICASONE PROPIONATE 0.05% NA SPR 16 GM BTL (*BKC) 1 SPRAY NASAL (08:25)
[2025-02-12 12:00] VITALS: PULSE 61
[2025-02-12] MEDS: HEPARIN SODIUM LOCK FLUSH 500 UNITS/5 ML SYRINGE IV PUSH (13:09)
--- NOTE | 2025-02-12 13:39 | P.DS_ITS ---
DS: Admitting Diagnosis Discharge Date 02/12/25 Admitting Diagnosis rectal bleeding colon cancer metastatis to liver chemotherapy induced neutropenia ashtma copd overlap syndrome htn DS: Discharge Diagnosis Discharge Diagnosis (1) Rectal bleeding: Code(s): K62.5 - Hemorrhage of anus and rectum Status: Acute (2) Colon cancer: Qualifiers: Colon location: sigmoid Qualified Code(s): C18.7 - Malignant neoplasm of sigmoid colon Code(s): C18.9 - Malignant neoplasm of colon, unspecified Status: Acute (3) Metastasis to liver: Code(s): C78.7 - Secondary malignant neoplasm of liver and intrahepatic bile duct Status: Acute (4) Chemotherapy induced neutropenia: Code(s): D70.1 - Agranulocytosis secondary to cancer chemotherapy; T45.1X5A - Adverse effect of antineoplastic and immunosuppressive drugs, initial encounter Status: Acute (5) Asthma-COPD overlap syndrome: Code(s): J44.89 - Other specified chronic obstructive pulmonary disease Status: Chronic (6) Hypertension: Qualifiers: Hypertension type: primary hypertension Qualified Code(s): I10 - Essential (primary) hypertension Code(s): I10 - Essential (primary) hypertension Status: Chronic DS: Summary Hospital Course Reason for hospitalization: rectal bleeding colon cancer metastasis to liver chemotherapy induced neutropenia asthma copd overlap syndrome htn Hospital Course: 64-year-old female with past medical history of metastatic sigmoid colon cancer with liver metastases on palliative FOLFOX/Avastin chemotherapy who presented on 02/04/25 with several weeks of progressive generalized weakness and reported dark stools. On admission, she was tachycardic with soft blood pressures and found to have acute on chronic anemia (Hgb 7.3, down from 8.0 two days prior) and chemotherapy associated leukopenia (WBC 2.2), as well as hypokalemia. She received one unit of packed red blood cells with subsequent stabilization of hemoglobin and improvement in vital signs. Given concern for melena, GI and Oncology were consulted. She was started on IV proton pump inhibitor therapy and underwent EGD on 02/05/25, which showed no evidence of upper gastrointestinal bleeding. GI felt the dark stools were most consistent with iron supplementation rather than active bleeding, and her anemia was attributed primarily to chemotherapy. Her stools subsequently normalized, and no further bleeding was noted. During hospitalization, her leukopenia was treated with filgrastim; however, she later developed marked leukocytosis felt to be secondary to growth factor use, prompting discontinuation of Neupogen with subsequent downtrending counts. An infectious workup including chest Xray and urinalysis was unremarkable, and she remained afebrile and clinically stable. Electrolyte abnormalities were co rrected, and her poor oral intake and weakness gradually improved with supportive care. Antihypertensive medications were initially held due to hypotension, with atenolol later resumed for tachycardia once blood pressures stabilized; lisinopril remained held at discharge. Discussed with patient that she is to continue to monitor her blood pressures at home and follow up with her PCP on resuming her medication. Oncology recommended outpatient follow up with plans for further dose reduced chemotherapy and discussion regarding continuation of bevacizumab given bleeding risk. Prior to discharge discussed patient with oncology Dr. Machado who is in agreement with discharge from a their perspective given that her leukocytosis is improving and anemia staying stable. Patient is to have a close follow-up with Oncology in the outpatient setting, discussed with her that she is to call the office for appointment. Patient is also to obtain a repeat CBC to reassess blood levels. Patient had no complaints at time of discharge denying chest pain, shortness a breath, palpitations, nausea/vomiting, and abdominal pain. Patient was able to ambulate using a walker throughout the room and denied any di zziness/lightheadedness. Patient discharged home with home health in a stable condition. She is to follow up with her primary care provider in 1 week and Oncology as scheduled. Status at Discharge Functional status at discharge: uses cane/walker Time Spent with Patient Time attestation: Total time spent providing and/or coordinating discharge services: Time spent: Greater than 30 minutes Exam Narrative: AF HR 97 RR 20 SpO2 97 BP 115/43 General: female in no acute respiratory distress who is nontoxic appearing, sitting up in bed. Seen ambulating with steady gait and walker throughout room. HEENT: Normocephalic. Atraumatic. Extraocular movement intact. Sclera clear and anicteric. No facial asymmetry. Chest: Lungs are clear to auscultation bilaterally. No wheezes or crackles. CV: Heart was regular rate and rhythm. Abd: Abdomen was soft. Nontender. Nondistended. Positive bowel sounds. Ext: No clubbing, cyanosis, or edema. DP pulses bilaterally. Neuro: Patient is alert. Speech is clear. DS: Data Data Completed and Pending Completed studies during hospitalization: chest xr abdomen/pelvis ct Labs on day of discharge: Labs from last 24 hours 02/12/25 05:39 WBC 31.5 H RBC 2.66 L Hgb 7.5 L Hct 23.7 L MCV 89.1 MCH 28.2 MCHC 31.6 L RDW 17.5 H Plt Count 152 MPV 10.9 H Immature Gran % (Auto) Not Reportable Neut % (Auto) Not Reportable Lymph % (Auto) Not Reportable [place] % (Auto) Not Reportable Eos % (Auto) Not Reportable Baso % (Auto) Not Reportable Lymph # (Auto) Not Reportable [place] # (Auto) Not Reportable Eos # (Auto) Not Reportable Baso # (Auto) Not Reportable Abs Immat Gran (auto) Not Reportable Absolute Neuts (auto) Not Reportable Absolute Nucleated RBC Not Reportable Total Counted 100 Neutrophils % (Manual) 42 L Band Neutrophils % 19 H Lymphocytes % (Manual) 24 Monocytes % (Manual) 8 Metamyelocytes % 3 Promyelocytes % (Man) 4 Nucleated RBC % Not Reportable Abs Neuts (Manual) 19.21 H Abs Lymphs (Manual) 7.56 H Abs Monocytes (Manual) 2.52 H Platelet Estimate Adequate Schistocytes None seen Preliminary micro results at discharge 02/09/25 16:08 Blood Culture - Preliminary Blood Discharge Plan Discharge Attending physician on discharge: Gallito Irwin Consulting providers: Ian Brown; Manuel Godinez; Suzanne Vasquez Discharging Clinician: Suzanne Vasquez Anticipated Discharge Date/Time: 02/12/25 12:39 Patient Disposition: Home with Home Health Service Activity: as tolerated Diet: as tolerated Discharge Instructions: Discharge disposition: Patient has a history of metastatic cancer, followed by Dr. Godinez Follow up with Dr. Godinez within 2 weeks, call for appointment Obtain a blood draw in 3 days to reassess levels, results being sent to PCP and oncology office Initially there was concern for possible GI bleed, however no bleeding noted on imaging when evaluated by GI Likely the dark stools were related to iron supplementation Eat well balanced meals and do not over hydrate Keep active Keep an eye on your stool, should your stool be black or dark purple, you should come back to the hospital Monitor blood pressures Continue atenolol as previously prescribed Hold lisinopril until follow up with PCP Take caution while standing, rising, or moving Change positions slowly taking a break between each position change If you standing feel dizzy sit back down and take a break Encouraged to continue with yearly vaccinations Return to the emergency department if he developed sudden shortness of breath, chest pain, nausea, vomiting, upset stomach or intractable diarrhea Return to the emergency department if you develop fever greater than 100.5 Follow-up with the primary care physician within 1-2 weeks Thank you for [facility] for your healthcare needs Care Coordination: [facility] to [facility] eval and treat, and long term. Their phone number is [phone], if you have any questions; they will contact you to schedule their visits. RN Please fax discharge instructions to [phone]. Patient Language: Portuguese Stand Alone Forms: General Discharge Information Follow-up/Referrals: Manuel Godinez MD [Physician, Hematology] - 2 Weeks [facility],ISHAAN Yanes [Primary Care Provider] - 1 Week Discharge Medications: Continued tramadol 50 mg tablet 50 mg PO Q6H PRN (Reason: pain) famotidine 20 mg tablet 20 mg PO DAILY meclizine 25 mg tablet 25 mg PO TID simvastatin 5 mg tablet 5 mg PO DAILY nitroglycerin 0.4 mg tablet, sublingual 0.4 mg sublingual Q5M PRN (Reason: chest pain) Rx Instructions: do not exceed 3 doses per episode fluticasone propionate 50 mcg/actuation spray,suspension 1 spray intranasal DAILY Rx Instructions: administer into each nostril albuterol sulfate 90 mcg/actuation aerosol powdr breath activated 1 inh inhalation Q4-6H PRN (Reason: shortness of breath or wheezing) Patient Comments: ... atenolol 50 mg tablet 50 mg PO DAILY gabapentin 600 mg tablet 600 mg PO Q8H umeclidinium-vilanterol [Anoro Ellipta] 62.5-25 mcg/actuation blister with device 1 inh INHALATION Q24H dicyclomine 20 mg tablet See Rx Instructions .ROUTE .COMPLEX Qty: 90 5RF Dose Instruction: TAKE 1 TABLET BY MOUTH THREE TIMES DAILY NEEDED FOR ABDOMINAL PAIN Rx Instructions: TAKE 1 TABLET BY MOUTH THREE TIMES DAILY NEEDED FOR ABDOMINAL PAIN Held alprazolam [Xanax] 0.5 mg tablet 0.25 mg PO TID Hold Instructions: Resume on 02/19/25. hold until pcp follow up lisinopril 40 mg tablet 40 mg PO DAILY Hold Instructions: Resume on 02/19/25. Hold until follow up with PCP. Other Ambulatory Orders: Complete Blood Count no Diff (Routine) Timeframe: 3 Days Location: Determined by Patient Ordered By: Suzanne Vasquez Date of admission: 02/04/25 15:27 Primary Care Provider: Dasia,Caleb Swenson Admitting Provider: Kian Michel Attending physician on admission: Kian Michel Condition: Stable Hospitalist MIPS Heart Failure (Exclusion) Patient has history of Heart Transplant or Left Ventricular Assistive Device?: No IF YES, STOP HERE Heart Failure (Qualifier) Patient has current or prior documentation of LVEF less than or equal to 40%, or mod/servere depressed LVSF?: No IF NO, STOP HERE
== END 2025-02-12 13:33 | disposition home health service (06) | DRG 811 ==
LOC: ANHED 12:59 → ANH3MEDSUR 02-05 07:01
PROVIDERS: Internal Medicine Gastroenterology; Internal Medicine Hematology & Oncology; Nurse Practitioner; Student in an Organized Health Care Education/Training Program; Admitting Provider General Practice; Emergency Provider Student in an Organized Health Care Education/Training Program; PCP Physician Assistant; Visit Provider Internal Medicine
PROC: 0DJ08ZZ Inspection of Upper Intestinal Tract, Via Natural or Artificial Opening Endoscopic (ICD-10-PCS; principal; 2025-02-05 15:00)
DX: D64.81 Anemia due to antineoplastic chemotherapy (principal); E43 Unspecified severe protein-calorie malnutrition; C78.7 Secondary malignant neoplasm of liver and intrahepatic bile duct; E87.1 Hypo-osmolality and hyponatremia; C19 Malignant neoplasm of rectosigmoid junction; T45.1X5A Adverse effect of antineoplastic and immunosuppressive drugs, initial encounter; D70.1 Agranulocytosis secondary to cancer chemotherapy; D69.59 Other secondary thrombocytopenia; E87.6 Hypokalemia; K44.9 Diaphragmatic hernia without obstruction or gangrene; J44.89 Other specified chronic obstructive pulmonary disease; I10 Essential (primary) hypertension; Z87.891 Personal history of nicotine dependence; Z68.22 Body mass index [BMI] 22.0-22.9, adult; Z79.631 Long term (current) use of antimetabolite agent
CPT/HCPCS: 36415; 36430; 71045; 74177; 80047; 80048; 80053; 81001; 82607; 82728; 82746; 83540; 83550; 84238; 84484; 85014; 85018; 85025; 85027; 85055; 86850; 86900; 86901; 86923; 87040; 93005; 94640; 96365; 96366; 96372; 97110; 97162; 97165; 97530; 97535; 99285; A9270; J1642; J2405; J2470; J3480; J7050; J7120; P9016; P9047; Q5101; Q5125; Q9967